=== PATIENT | female | born 1965 | race Caucasian/White ===

== ENCOUNTER → 2017-05-31 07:45 | Outpatient (CLI) | payer BC, SELFPAY ==
--- NOTE | 2017-05-31 08:10 | BI_ITS ---
MAMMOGRAPHY - BILATERAL SCREENING REASON FOR EXAM: Female, 51 years old. Routine annual screening examination. PERTINENT HISTORY: Non-contributory. TECHNIQUE: Digital bilateral breast elmira (3D mammographic acquisition) in the CC and MLO projections. 2-D mediolateral oblique (MLO) and craniocaudad (CC) views of both breasts were obtained. CAD: Full Field Digital Mammography with Computer Added Detection was performed. COMPARISON: Comparison is made with prior outside examination dated May 28, 2016. FINDINGS: Breast Composition: There are scattered areas of fibroglandular density. There are no dominant masses or suspicious calcifications. Stable bilateral benign appearing axillary lymph nodes. No other significant abnormalities are identified. There has been no significant change since the prior study. BI/SCREENING MAMM (CAD), BILAT IMPRESSION: Stable bilateral screening mammogram. Yearly follow-up mammogram recommended. (A) ASSESSMENT CATEGORY: BIRADS Category 2: Benign. A letter regarding these results will be sent to the patient by the facility within 30 days. Approximately 10% of breast cancers are not detected by mammography. A normal mammogram should not delay biopsy of a clinically suspicious abnormality. [id number] Electronically Signed: Artis Jacob MD at 9:56 EDT Tel [phone], Service support ,
== END ==
PROVIDERS: Family Provider Internal Medicine; PCP Internal Medicine; Visit Provider Nurse Practitioner Women's Health
DX: Z12.31 Encounter for screening mammogram for malignant neoplasm of breast (principal)
CPT/HCPCS: 77063; 77067

== ENCOUNTER → 2018-08-19 | Outpatient (CLI) | payer OTHER, SELFPAY ==
[2018-08-08 09:25] VITALS: BMI 34.7
--- NOTE | 2018-08-19 15:48 | BI_ITS ---
MAMMOGRAPHY - BILATERAL SCREENING 3-D TOMOSYNTHESIS REASON FOR EXAM: Female, 52 years old. Bilateral Screening 3-D tomosynthesis PERTINENT HISTORY: No significant family history. TECHNIQUE: 2-D mammograms and 3-D Tomosynthesis of the breast (s) were performed. CAD was performed. COMPARISON: May 31, 2017 FINDINGS: The breast composition is almost entirely fat. Scattered benign calcifications are seen. No dense spiculated masses or suspicious microcalcifications are identified. No architectural distortion is identified. There is no skin thickening or retraction. There has been no significant change since the prior study. BI/SCREEN MAMM (CAD) W/MICHAEL BILAT IMPRESSION: No mammographic signs of malignancy. Routine yearly mammograms recommended. ASSESSMENT CATEGORY: BIRADS Category 2: Benign. A letter regarding these results will be sent to the patient by the facility within 30 days. FOLLOW UP RECOMMENDATION: Yearly follow up mammogram recommended. (A) Approximately 10% of breast cancers are not detected by mammography. A normal mammogram should not delay biopsy of a clinically suspicious abnormality. Electronically Signed: Oseas Yeboah MD at 18:00 EDT , Service support ,
== END | disposition home or self-care (01) ==
LOC: OPBI 15:41
PROVIDERS: Family Provider Internal Medicine; PCP Internal Medicine; Referring Provider Nurse Practitioner Women's Health; Visit Provider Nurse Practitioner Women's Health
DX: Z12.31 Encounter for screening mammogram for malignant neoplasm of breast (principal)
CPT/HCPCS: 77063; 77067

== ENCOUNTER → 2019-08-21 | Outpatient (CLI) | payer OTHER, SELFPAY ==
[2018-08-08 09:25] VITALS: BMI 34.7
--- NOTE | 2019-08-21 07:40 | BI_ITS ---
MAMMOGRAPHY - BILATERAL SCREENING REASON FOR EXAM: Female, 53 years old. Routine annual screening examination. PERTINENT HISTORY: Non-contributory. TECHNIQUE: Digital bilateral breast michael (3D mammographic acquisition) in the CC and MLO projections. 2-D mediolateral oblique (MLO) and craniocaudad (CC) views of both breasts were obtained. CAD: Full Field Digital Mammography with Computer Added Detection was performed. COMPARISON: Comparison is made with prior examination dated August 19, 2018 and May 31, 2017. FINDINGS: Breast Composition: The breasts are almost entirely fatty. There are no dominant masses or suspicious calcifications. Stable small benign appearing bilateral axillary lymph nodes. No other significant abnormalities are identified. There has been no significant change since the prior study. BI/SCREEN MAMM (CAD) W/MICHAEL BILAT IMPRESSION: Stable bilateral screening mammogram. Yearly follow-up mammogram recommended. (A) ASSESSMENT CATEGORY: BIRADS Category 2: Benign. A letter regarding these results will be sent to the patient by the facility within 30 days. Approximately 10% of breast cancers are not detected by mammography. A normal mammogram should not delay biopsy of a clinically suspicious abnormality. [id number] Electronically Signed: Artis Jacob, at 10:34 EDT , Service support ,
== END | disposition home or self-care (01) ==
LOC: OPBI 07:40
PROVIDERS: PCP Internal Medicine; Referring Provider Nurse Practitioner Women's Health; Visit Provider Nurse Practitioner Women's Health
DX: Z12.31 Encounter for screening mammogram for malignant neoplasm of breast (principal)
CPT/HCPCS: 77063; 77067

== ENCOUNTER → 2020-08-27 | Outpatient (CLI) | payer OTHER, SELFPAY ==
[2020-08-27 08:34] VITALS: BMI 39.0
[2020-08-30 09:33] LABS: HPV APTIMA, High Risk Negative (Negative)
== END | disposition home or self-care (01) ==
PROVIDERS: PCP Internal Medicine; Referring Provider Nurse Practitioner Women's Health; Visit Provider Nurse Practitioner Women's Health
DX: Z12.4 Encounter for screening for malignant neoplasm of cervix (principal)
CPT/HCPCS: 87624; 88175; G0145

== ENCOUNTER → 2020-09-04 15:53 | Outpatient (CLI) | payer OTHER, SELFPAY ==
[2020-08-27 08:34] VITALS: BMI 39.0
--- NOTE | 2020-09-04 15:55 | BI_ITS ---
MAMMOGRAPHY - BILATERAL SCREENING REASON FOR EXAM: Female, 54 years old. Routine annual screening examination. PERTINENT HISTORY: Non-contributory. TECHNIQUE: Digital bilateral breast michael (3D mammographic acquisition) in the CC and MLO projections. 2-D mediolateral oblique (MLO) and craniocaudad (CC) views of both breasts were obtained. CAD: Full Field Digital Mammography with Computer Added Detection was performed. COMPARISON: Comparison is made with prior examination dated 08/21/2019 and 08/19/2018. FINDINGS: Breast Composition: The breasts are almost entirely fatty. There are no dominant masses or suspicious calcifications. Stable small benign-appearing bilateral axillary lymph nodes. Stable 4 mm nodules in the upper lateral aspect of the right breast suggestive of small intramammary lymph nodes. No other significant abnormalities are identified. There has been no significant change since the prior study. BI/SCRN MAMM (CAD)W/MICHAEL BILAT IMPRESSION: Stable bilateral screening mammogram. Yearly follow-up mammogram recommended. (A) ASSESSMENT CATEGORY: BIRADS Category 2: Benign. A letter regarding these results will be sent to the patient by the facility within 30 days. Approximately 10% of breast cancers are not detected by mammography. A normal mammogram should not delay biopsy of a clinically suspicious abnormality. [id number] Electronically Signed: Artis Jacob MD at 8:04 EDT , Service support ,
== END ==
PROVIDERS: PCP Internal Medicine; Referring Provider Nurse Practitioner Women's Health; Visit Provider Nurse Practitioner Women's Health
DX: Z12.31 Encounter for screening mammogram for malignant neoplasm of breast (principal)
CPT/HCPCS: 77063; 77067

== ENCOUNTER → 2021-07-17 | Outpatient (CLI) | payer OTHER, SELFPAY ==
[2021-07-17 15:42] LABS: Hematocrit 46.1 % (37-47); Hemoglobin 14.3 g/dL (12.0-15.0); Mean Corpuscular Volume 90.4 fL (81-99); Mean Platelet Vol. 10.4 fl (6.2-12.0); Platelet Count 345 K/mm3 (150-450); RBC Distribution Width CV 13.4 % (11.6-14.6); RBC Distribution Width SD 45.1 fl (35.1-43.9); White Blood Count 8.1 K/mm3 (4.4-11.0)
[2021-07-17 16:33] LABS: Ferritin 127 ng/mL (8-252)
== END | disposition home or self-care (01) ==
LOC: LAB 14:17
PROVIDERS: PCP Internal Medicine; Referring Provider Internal Medicine Pulmonary Disease; Visit Provider Internal Medicine Pulmonary Disease
DX: M79.606 Pain in leg, unspecified (principal); G25.81 Restless legs syndrome
CPT/HCPCS: 36415; 82728; 85027

== ENCOUNTER → 2021-09-05 | Outpatient (CLI) | payer OTHER, SELFPAY ==
--- NOTE | 2021-09-05 08:37 | BI_ITS ---
MAMMOGRAPHY - BILATERAL SCREENING REASON FOR EXAM: Female, 55 years old. Routine annual screening examination. PERTINENT HISTORY: Non-contributory. TECHNIQUE: Digital bilateral breast michael (3D mammographic acquisition) in the CC and MLO projections. 2-D mediolateral oblique (MLO) and craniocaudad (CC) views of both breasts were obtained. CAD: Full Field Digital Mammography with Computer Added Detection was performed. COMPARISON: Comparison is made with prior study dated 09/04/2020 and 08/21/2019. FINDINGS: Breast Composition: The breasts are almost entirely fatty. There are no dominant masses or suspicious calcifications. Stable small benign-appearing bilateral axillary lymph nodes. Stable 4 mm nodule in the upper lateral aspect of the right breast suggestive of small intramammary lymph node. No other significant abnormalities are identified. There has been no significant change since the prior study. BI/SCRN MAMM (CAD)W/MICHAEL BILAT IMPRESSION: Stable bilateral screening mammogram. Yearly follow-up mammogram recommended. (A) ASSESSMENT CATEGORY: BIRADS Category 2: Benign. A letter regarding these results will be sent to the patient by the facility within 30 days. Approximately 10% of breast cancers are not detected by mammography. A normal mammogram should not delay biopsy of a clinically suspicious abnormality. [id number] Electronically Signed: Artis Jacob MD at 9:33 EDT ,
== END | disposition home or self-care (01) ==
LOC: OPBI 08:36
PROVIDERS: PCP Internal Medicine; Referring Provider Nurse Practitioner Women's Health; Visit Provider Nurse Practitioner Women's Health
DX: Z12.31 Encounter for screening mammogram for malignant neoplasm of breast (principal)
CPT/HCPCS: 77063; 77067

== ENCOUNTER → 2022-09-07 | Outpatient (CLI) | payer OTHER, SELFPAY ==
--- NOTE | 2022-09-07 15:14 | BI_ITS ---
MAMMOGRAPHY - BILATERAL SCREENING 3-D TOMOSYNTHESIS REASON FOR EXAM: Female, 56 years old. Routine screening PERTINENT HISTORY: No significant family history. TECHNIQUE: 2-D mammograms and 3-D Tomosynthesis of the breast (s) were performed. CAD was performed. COMPARISON: 09/05/2021 FINDINGS: The breast composition is composed of scattered fibroglandular density. Scattered benign calcifications are seen. No dense spiculated masses or suspicious microcalcifications are identified. No architectural distortion is identified. There is no skin thickening or retraction. There has been no significant change since the prior study. BI/SCRN MAMM (CAD)W/MICHAEL BILAT IMPRESSION: No mammographic signs of malignancy. Routine yearly mammograms recommended. ASSESSMENT CATEGORY: BIRADS Category 1: Negative. A letter regarding these results will be sent to the patient by the facility within 30 days. FOLLOW UP RECOMMENDATION: Yearly follow up mammogram recommended. (A) Approximately 10% of breast cancers are not detected by mammography. A normal mammogram should not delay biopsy of a clinically suspicious abnormality. Electronically Signed: Mingo Orozco MD at 21:03 EDT ,
== END | disposition home or self-care (01) ==
LOC: OPBI 15:13
PROVIDERS: PCP Internal Medicine; Referring Provider Nurse Practitioner Women's Health; Visit Provider Nurse Practitioner Women's Health
DX: Z12.31 Encounter for screening mammogram for malignant neoplasm of breast (principal)
CPT/HCPCS: 77063; 77067

== ENCOUNTER 2023-05-22 04:33 | Emergency (ER) | payer OTHER, SELFPAY ==
[2023-05-22 04:35] VITALS: BP 153/75; PULSE 105; RESP 19; TEMP 36.6; O2SAT 98; BMI 40.3
--- NOTE | 2023-05-22 04:50 | CT_ITS ---
EXAM: CT Abdomen And Pelvis W/O Contrast Injection HISTORY: left flank pain TECHNIQUE: Routine protocol CT abdomen and pelvis. IV Contrast: None.. Oral contrast: None. RADIATION DOSAGE (If Supplied By Facility): CTDIvol = ( 15.07 ) mGy, DLP = ( 696.70 ) mGycm Individualized dose optimization techniques were used for this CT. COMPARISON: None. LIMITATIONS: None. FINDINGS: LOWER CHEST: Minimal dependent atelectasis in the lung bases. Small hiatal hernia. LIVER: Grossly unremarkable. GALLBLADDER AND BILIARY TREE: Grossly unremarkable. PANCREAS: Grossly unremarkable. SPLEEN: Grossly unremarkable. ADRENAL GLANDS: Grossly unremarkable. KIDNEYS AND URETERS: There is a 4 mm calculus in the proximal left ureter distal to the ureteropelvic junction. The proximal left ureter is dilated with mild left hydronephrosis and perinephric stranding. No other calculi demonstrated. No hydronephrosis on the right. PERITONEUM: No free air. No free fluid. BOWEL: No bowel obstruction. APPENDIX: Not identified. Likely surgically absent with surgical clips in the region. VESSELS: Abdominal aorta is normal caliber. REPRODUCTIVE ORGANS: Grossly unremarkable URINARY BLADDER: Grossly unremarkable. ABDOMINAL WALL: Unremarkable. BONES: No acute abnormalities. CT/Abdomen/Pelvis without Cont IMPRESSION: Proximal left ureteral calculus with mild left hydroureteronephrosis. Electronically Signed: Ana Olson MD at 7:21 EDT ,
[2023-05-22] MEDS: 0.9% Normal Saline (1000mL) 1,000 ML 999 ML IV (05:36)
[2023-05-22] MEDS: Ketorolac 30 MG/ML Syringe IV (05:37)
[2023-05-22 05:48] LABS: Absolute Lymphocyte Count 0.87 X10^3/uL (0.83-4.51); Absolute Neutrophil Count 10.4 X10^3/uL (2.0-7.7); Basophil# 0.04 X10^3/uL; Basophil% 0.3 % (0-1); Hematocrit 42.4 % (37-47); Hemoglobin 13.3 g/dL (12.0-15.0); Lymphocyte # 0.87 X10^3/ul (0.83-4.51); Lymphocyte % 7.4 % (19-41); Mean Corp Hgb Conc 31.4 g/dL (32-36); Mean Corpuscular Hgb 27.9 pg (27.0-32.0); Mean Corpuscular Volume 89.1 fL (81-99); Monocyte# 0.36 X10^3/uL; Monocyte% 3.1 % (0-10); NRBC Flagged by Analyzer 0 % (0-5); Neutrophil # 10.42 X10^3/uL (2.7-7.7); Neutrophil % 88.8 % (47-70); Platelet Count 316 K/mm3 (150-450); RBC Distribution Width CV 13.4 % (11.6-14.6); Red Blood Count 4.76 M/mm3 (4.2-5.4); White Blood Count 11.7 K/mm3 (4.4-11.0)
[2023-05-22 06:05] LABS: Anion Gap 7 (5-15); BUN 19 mg/dL (7-18); BUN/Creat Ratio 17.8 RATIO (10-20); Calcium,Total 9.2 mg/dL (8.5-10.1); Chloride 108 mmol/L (98-107); Creatinine, Serum 1.07 mg/dL (0.55-1.02); EST Glomerular Filtration Rate 56 mL/min (>60); Est Glom Filt Rate - Afr Amer 68 mL/min (>60); Estimated Creatinine Clearance 54.23 ml/min; Glucose 136 mg/dL (74-106); Potassium 3.6 mmol/L (3.5-5.1); Sodium Level 141 mmol/L (136-145)
[2023-05-22 06:30] LABS: Bacteria 0 SEEN /hpf (None Seen); Mucous, Urine 0 SEEN /hpf (<or=2+); White Blood Cells 0 SEEN /hpf (0-5)
[2023-05-22 06:34] VITALS: BP 144/85; PULSE 88; RESP 18; O2SAT 97
[2023-05-22 06:41] LABS: Color, Urine Yellow (Yellow); Glucose, Dipstick Normal (Normal); Ketone-Dipstick Negative (Negative); Leukocyte Esterase-Dipstick Negative /ul (Negative); Nitrite-Dipstick Negative (Negative); Occult Blood-Urine 50 /ul (Negative); Protein-Dipstick Negative (Negative); Urine Bilirubin Dipstick Negative (Negative); Urine Clarity Clear (Clear); Urine Urobilinogen Normal (Normal)
[2023-05-22 06:53] LABS: Red Blood Cells-Urine 10-25 SEEN /hpf (0-5); Squamous Epithelial Cells - UA 10-25 SEEN /hpf (5-10)
--- NOTE | 2023-05-22 07:10 | EX.ED.DYSGE1 ---
HPI History of Present Illness Chief Complaint: Flank Pain Informant: patient and spouse/S.O. Narrative Narrative: Patient is a 57-year-old female with past medical history of hypertension restless leg syndrome and sleep apnea. She states she was sleeping when she woke with left-sided pain. She states the pain is located along the left lateral abdomen and sharp in nature. She denies any recent trauma or excessive activity prior to the pain beginning. She states her urine is dark but also reports that is because she does not drink enough water. She states that she does have a remote history of kidney stone and this feels similar nature and secondary to concern for that she presents for evaluation [facility] Medical History Hypertension Restless leg syndrome Sleep apnea Home Medications carbidopa 25 mg-levodopa 100 mg-entacapone 200 mg tablet 1 tab PO QHS 06/04/15 [History Last Taken 06/05/15 \] trazodone 50 mg tablet 25 mg PO QHS 06/04/15 [History Last Taken 06/05/15] estradiol 0.01% (0.1 mg/gram) vaginal cream (Estrace) 1 g vaginal 2XW #42.5 grams 08/21/19 [Rx Last Taken Unknown] ketorolac 10 mg tablet 10 mg PO 4X/DAY PRN PRN pain 5 days #20 tabs 05/22/23 [Rx Last Taken Unknown] tamsulosin 0.4 mg capsule (Flomax) 0.4 mg PO DAILY #14 caps 05/22/23 [Rx Last Taken Unknown] Allergy/AdvReac Type Severity Reaction Status Date / Time acrivastine [From Semprex-D] Allergy Other Verified 09/07/22 14:48 cefuroxime axetil Allergy Rash Verified 09/07/22 14:48 [From Ceftin] diphenhydramine HCl Allergy Rash Verified 09/07/22 14:48 [From Benadryl] erythromycin base Allergy Rash Verified 09/07/22 14:48 insulin lispro [From Humalog] Allergy Unknown Verified 09/07/22 14:48 naproxen Allergy Unknown Verified 09/07/22 14:48 nitrofurantoin Allergy Rash Verified 09/07/22 14:48 [From Macrobid] nortriptyline Allergy Unknown Verified 09/07/22 14:48 Penicillins Allergy Rash Verified 09/07/22 14:48 pseudoephedrine HCl Allergy Other Verified 09/07/22 14:48 [From Semprex-D] Family History Mother Ovarian cancer Grandmother Heart disease [place] at 82 Father Heart disease Surgical History H/O hand surgery History of appendectomy History of lithotripsy Social History Smoking Status: Never smoker alcohol intake: current details: occasionally substance use type: does not use caffeine: Yes what type of physical activity do you participate in: walking frequency: 3-4 times per week seatbelt use: always do you feel safe at home: Yes additional social history: - [employer] Patient works at [employer] ROS ED Constitutional Constitutional ED: Denies chills or fever(s) ENT ENT ED: Denies sore throat Cardiovascular Cardiovascular: Denies chest pain Respiratory/Chest Respiratory/Chest: Denies cough or dyspnea Gastrointestinal Gastrointestinal: Reports abdominal pain and nausea; Denies diarrhea or vomiting Genitourinary Genitourinary ED: Denies dysuria or urinary frequency Musculoskeletal Musculoskeletal: Reports back pain; Denies myalgias Integumentary Denies rash Neurologic Neurologic: Denies headache(s) Hematologic/Lymphatic Hematologic/Lymphatic: Denies easy bleeding or easy bruising EXAM Physical Exam Const Vital Signs: 05/22/23 04:35 05/22/23 06:34 Temperature 98 F Temperature Source Oral Pulse Rate 105 H 88 Respiratory Rate 19 H 18 Blood Pressure 153/75 H 144/85 H Blood Pressure Mean 101 104 Pulse Ox 98 97 Oxygen Delivery Method Room Air Room Air Positive well nourished, well developed and obese General Appearance ED: well developed; Negative for pallor Nutritional Appearance: obese HEENT HEENT Narrative: Normocephalic atraumatic Eyes PERRL and EOMs intact bilaterally General Eye ED: Negative for scleral icterus Neck supple Neck Narrative: No nuchal rigidity or meningeal signs noted Resp normal respiratory effort and clear to auscultation bilaterally Cardio regular rate and regular rhythm Rate: other Other Details: Radial and carotid pulses are equal and symmetric GI non-distended GI Narrative: Abdomen is obese soft and nondistended with normal active bowel sounds. There is pain with palpation in the left lateral/upper quadrant. No voluntary guarding or rigidity. No pulsatile mass or fluid wave Auscultation: normoactive bowel sounds Palpation: soft Back/Spine Back/Spine Narrative: Positive left CVA pain noted Extremity normal to inspection Neuro oriented x3, CN's II-XII intact bilaterally and no sensory deficits noted Sensorium / Orientation: alert Motor Exam: strength 5/5 throughout Psych mental status grossly normal Skin no rashes or lesions noted Skin Narrative: No overlying soft tissue changes to suggest trauma or infection General Skin Exam: Negative for jaundice or pallor MDM MDM MDM Narrative Medical decision making narrative: Patient presented to the ER hypertensive otherwise with stable vitals. She reported sudden onset of sharp pain along the left lateral abdomen with remote history of kidney stone. Differential diagnosis is for kidney stone versus UTI versus pyelonephritis versus colitis. Basic labs were obtained which shows blood within the urine concerning for stone without secondary changes to suggest infection. No significant electrolyte abnormality or signs of [place]. CT scan did confirm a 4 mm stone in the mid left ureter with mild hydronephrosis. She was treated with IV fluids and Toradol and had resolution of her pain. At this time as she does not have findings concerning for urosepsis or acute kidney injury and her pain is controlled there is no need for admission and she is otherwise safe for discharge and outpatient follow-up with urology History & Record Review Discussion w/independent historian: Patient and Significant other Lab Data Attestation: I reviewed the patient's lab results. Labs: Laboratory Results - last 24 hr 05/22/23 05/22/23 05:30 06:17 WBC 11.7 H RBC 4.76 Hgb 13.3 Hct 42.4 MCV 89.1 MCH 27.9 MCHC 31.4 L RDW Std Deviation 44.0 H RDW Coeff of Heather 13.4 Plt Count 316 MPV 10.0 Immature Gran % (Auto) 0.400 Neut % (Auto) 88.8 H Lymph % (Auto) 7.4 L [place] % (Auto) 3.1 Eos % (Auto) 0.0 Baso % (Auto) 0.3 Absolute Neuts (auto) 10.4 H Absolute Lymphs (auto) 0.87 Nucleated RBC % 0 Sodium 141 Potassium 3.6 Chloride 108 H Carbon Dioxide 26.0 Anion Gap 7 BUN 19 H Creatinine 1.07 H Estim Creat Clear Calc 54.23 Est GFR (MDRD) Af Amer 68 Est GFR (MDRD) Non-Af 56 L BUN/Creatinine Ratio 17.8 Glucose 136 H Calcium 9.2 Urine Color Yellow Urine Clarity Clear Urine pH 7.0 Ur Specific Fults 1.010 Urine Protein Negative Urine Glucose (UA) Normal Urine Ketones Negative Urine Occult Blood 50 H Urine Nitrite Negative Urine Bilirubin Negative Urine Urobilinogen Normal Ur Leukocyte Esterase Negative Urine RBC 10-25 SEEN Urine WBC 0 SEEN Ur Squamous Epith Cells 10-25 SEEN Urine Bacteria 0 SEEN Urine Mucus 0 SEEN Radiography Diagnostic Testing: Clinical Impression(s) from Imaging Studies Abdomen/Pelvis CT 05/22/23 04:50 IMPRESSION: Proximal left ureteral calculus with mild left hydroureteronephrosis. Electronically Signed: Ana Olson MD at 7:21 EDT Reading Location ID and State: [address] [place] [address] Tel , Service support , Discharge Plan Triage Chief Complaint: Flank Pain Other Complaint: Abd Pain ED Provider: Smith Tripp Dx/Rx/DC Orders Clinical Impression: Renal colic, Kidney stone, Sleep apnea, Hypertension Instructions: ED Kidney Stone with Pain Prescriptions: New ketorolac 10 mg tablet 10 mg PO 4X/DAY PRN PRN (Reason: pain) 5 Days Qty: 20 0RF tamsulosin [Flomax] 0.4 mg capsule 0.4 mg PO DAILY Qty: 14 0RF No Action estradiol [Estrace] 0.01 % (0.1 mg/gram) cream 1 g VAGINAL 2XW Qty: 42.5 2RF trazodone 50 MG tablet 25 mg PO QHS Patient Comments: sleep [id number] 1 EACH tablet 1 tab PO QHS Primary Care Provider: Maria E Awan Referrals: Ann-Marie Huffman MD [Med Staff - Active Staff] - Maria E Awan MD [Primary Care Provider] - Activity Restrictions/Additional Instructions: Please follow-up with urology for repeat evaluation. Keep yourself well-hydrated and stay active. If you develop a fever over 100.4 or your pain is not controlled with the prescribed medication please return for repeat evaluation. Disposition Disposition: Home, Self Care
[2023-05-22 07:44] VITALS: BP 144/81; PULSE 92; RESP 16; TEMP 36.6; O2SAT 100
== END 2023-05-22 07:46 | disposition home or self-care (01) ==
PROVIDERS: Emergency Provider Emergency Medicine; PCP Internal Medicine; Visit Provider Emergency Medicine
DX: N13.2 Hydronephrosis with renal and ureteral calculous obstruction (principal); N23 Unspecified renal colic; I10 Essential (primary) hypertension; G47.30 Sleep apnea, unspecified; G25.81 Restless legs syndrome; Z87.442 Personal history of urinary calculi; E66.9 Obesity, unspecified
CPT/HCPCS: 74176; 80048; 81001; 85025; 96361; 96374; 99284; J7030; A4216

== ENCOUNTER → 2023-06-30 | Outpatient (CLI) | payer OTHER, SELFPAY ==
--- NOTE | 2023-06-30 17:47 | CT_ITS ---
EXAM: CT ABDOMEN AND PELVIS WITHOUT INTRAVENOUS CONTRAST CLINICAL INDICATION: FLANK PAIN TECHNIQUE: Helically acquired images were obtained of the abdomen and pelvis without intravenous contrast. This CT exam was performed using one or more of the following dose reduction techniques: automated exposure control, adjustment of the mA and/or kV according to patient size, and/or use of iterative reconstruction technique. COMPARISON: 05/22/2023 FINDINGS: LOWER THORAX: No significant abnormality. Lung bases are clear. No cardiomegaly. No significant pericardial effusion. ABDOMEN: LIVER: No significant abnormality. Homogeneous. GALLBLADDER AND BILE DUCTS: No significant abnormality. No calcified gallstones. No gallbladder distention or wall edema. No intra- or extrahepatic biliary ductal dilation. PANCREAS: No significant abnormality. No focal cystic mass. SPLEEN: No significant abnormality. Normal size without focal cystic or solid mass. ADRENALS: No significant abnormality. No nodules. KIDNEYS AND URETERS: Punctate left interpolar region calyceal stone measuring less than 1 mm. The previously demonstrated proximal left ureteral stone has passed and there is no left-sided hydronephrosis. Normal renal size and position. No right-sided urolithiasis or hydronephrosis is present. STOMACH AND BOWEL: No significant abnormality. No stomach or bowel distention. No focal inflammatory change. PELVIS: APPENDIX: Findings consistent with prior appendectomy. BLADDER: No significant abnormality. REPRODUCTIVE: Normal as visualized. No mass. ABDOMEN and PELVIS: INTRAPERITONEAL SPACE: No significant abnormality. No ascites or other fluid collection. No free air. BONES/JOINTS: Degenerative changes in the spine. No suspicious lytic or blastic abnormality. SOFT TISSUES: No significant abnormality. No discrete abdominal or pelvic wall hernia. VASCULATURE: No significant abnormality. Abdominal aorta is non-dilated. LYMPH NODES: Nonspecific soft tissue nodule in the left suprarenal region distinct from the adrenal gland is unchanged measuring approximately 1.3 cm. This is possibly a small lymph node. CT/Abdomen/Pelvis without Cont IMPRESSION: 1. Nonspecific soft tissue nodule in the left suprarenal region distinct from the adrenal gland is unchanged measuring approximately 1.3 cm. This is possibly a small lymph node. 2. Punctate left interpolar region calyceal stone measuring less than 1 mm. The previously demonstrated proximal left ureteral stone has passed and there is no left-sided hydronephrosis. Electronically Signed: Gregory Greco DO at 23:56 EDT ,
== END | disposition home or self-care (01) ==
LOC: CT 17:45
PROVIDERS: PCP Internal Medicine; Referring Provider Urology; Visit Provider Urology
DX: R10.9 Unspecified abdominal pain (principal); N20.1 Calculus of ureter
CPT/HCPCS: 74176

== ENCOUNTER → 2023-07-07 | Outpatient (CLI) | payer OTHER, SELFPAY ==
--- NOTE | 2023-07-07 11:01 | RAD_ITS ---
INDICATION: Shortness of breath/COUGH EXAMINATION/TECHNIQUE: X-RAY - XR Chest 2 Views COMPARISON: No relevant prior comparison study available FINDINGS: LINES/DEVICES: None. LUNGS: No consolidation, edema or effusion. No pneumothorax. MEDIASTINUM AND CARDIOVASCULAR STRUCTURES: Cardiac silhouette not enlarged. Central airways and mediastinal contour are unremarkable. BONES AND SOFT TISSUES: Unremarkable. RAD/Chest PA and Lateral IMPRESSION: No radiographic evidence of acute cardiopulmonary disease. Electronically Signed: Melia Quintana MD at 11:13 EDT ,
== END | disposition home or self-care (01) ==
LOC: MTLAB 11:00
PROVIDERS: PCP Internal Medicine; Referring Provider Internal Medicine Pulmonary Disease; Visit Provider Internal Medicine Pulmonary Disease
DX: R06.02 Shortness of breath (principal); R05.9 Cough, unspecified
CPT/HCPCS: 71046

== ENCOUNTER → 2023-09-15 | Outpatient (CLI) | payer OTHER, SELFPAY ==
--- NOTE | 2023-09-15 08:25 | BI_ITS ---
MAMMOGRAPHY - BILATERAL SCREENING REASON FOR EXAM: Female, 57 years old. Routine annual screening examination. PERTINENT HISTORY: Non-contributory. TECHNIQUE: Digital bilateral breast michael (3D mammographic acquisition) in the CC and MLO projections. 2-D mediolateral oblique (MLO) and craniocaudad (CC) views of both breasts were obtained. CAD: Full Field Digital Mammography with Computer Added Detection was performed. COMPARISON: Comparison is made with prior study dated September 07, 2022 and September 05, 2021. FINDINGS: Breast Composition: There are scattered areas of fibroglandular density. There are no dominant masses or suspicious calcifications. Stable small benign-appearing bilateral axillary lymph nodes. No other significant abnormalities are identified. There has been no significant change since the prior study. BI/SCRN MAMM (CAD)W/MICHAEL BILAT IMPRESSION: Stable bilateral screening mammogram. Yearly follow-up mammogram recommended. (A) ASSESSMENT CATEGORY: BIRADS Category 2: Benign. A letter regarding these results will be sent to the patient by the facility within 30 days. Approximately 10% of breast cancers are not detected by mammography. A normal mammogram should not delay biopsy of a clinically suspicious abnormality. [id number] Electronically Signed: Artis Jacob MD at 9:26 EDT ,
== END | disposition home or self-care (01) ==
LOC: OPBI 08:25
PROVIDERS: PCP Internal Medicine; Referring Provider Nurse Practitioner Women's Health; Visit Provider Nurse Practitioner Women's Health
DX: Z12.31 Encounter for screening mammogram for malignant neoplasm of breast (principal)
CPT/HCPCS: 77063; 77067

== ENCOUNTER → 2023-10-19 | Outpatient (CLI) | payer OTHER, SELFPAY ==
[2023-10-19 12:46] LABS: Erythrocyte Sedimentation Rate 7 mm/hr (0-30)
[2023-10-19 12:54] LABS: Absolute Lymphocyte Count 1.93 X10^3/uL (0.83-4.51); Absolute Neutrophil Count 4.1 X10^3/uL (2.0-7.7); Basophil# 0.06 X10^3/uL; Basophil% 0.9 % (0-1); Eosinophils% 2.8 % (0-5); Hematocrit 44.6 % (37-47); Hemoglobin 13.9 g/dL (12.0-15.0); Lymphocyte # 1.93 X10^3/ul (0.83-4.51); Lymphocyte % 27.4 % (19-41); Mean Corp Hgb Conc 31.2 g/dL (32-36); Mean Corpuscular Hgb 28.1 pg (27.0-32.0); Mean Corpuscular Volume 90.3 fL (81-99); Mean Platelet Vol. 10.5 fl (6.2-12.0); Monocyte# 0.73 X10^3/uL; Monocyte% 10.4 % (0-10); NRBC Flagged by Analyzer 0 % (0-5); Neutrophil # 4.11 X10^3/uL (2.7-7.7); Neutrophil % 58.2 % (47-70); Platelet Count 340 K/mm3 (150-450); RBC Distribution Width CV 13.9 % (11.6-14.6); RBC Distribution Width SD 45.9 fl (35.1-43.9); Red Blood Count 4.94 M/mm3 (4.2-5.4); White Blood Count 7.1 K/mm3 (4.4-11.0)
[2023-10-20 14:09] LABS: Angiotensin Convert Enzyme 53 U/L (14-82)
== END | disposition home or self-care (01) ==
LOC: MTLAB 10:24
PROVIDERS: PCP Internal Medicine; Referring Provider Internal Medicine Pulmonary Disease; Visit Provider Internal Medicine Pulmonary Disease
DX: J45.40 Moderate persistent asthma, uncomplicated (principal)
CPT/HCPCS: 36415; 82164; 85025; 85652

== ENCOUNTER → 2024-07-19 | Outpatient (CLI) | payer OTHER, SELFPAY ==
--- NOTE | 2024-07-19 10:15 | RAD_ITS ---
PROCEDURE: ABDOMEN SINGLE VIEW 07/19/2024 REASON FOR EXAM: KUB- KIDNEY STONE TECHNIQUE: Single view abdomen. 2 images to include the entire abdomen and pelvis FINDINGS: No abdominal calcification identified concerning for a renal stone. Left pelvic phlebolith incidental. Visualized lung bases appear unremarkable. No gaseous distention of bowel or evidence of mass effect. RAD/Abdomen Single View IMPRESSION: No abdominal calcification identified concerning for a renal stone. Reading Location: [id number]
== END | disposition home or self-care (01) ==
LOC: MTRAD 10:13
PROVIDERS: PCP Internal Medicine; Referring Provider Urology; Visit Provider Urology
DX: N20.0 Calculus of kidney (principal)
CPT/HCPCS: 74018

== ENCOUNTER → 2024-09-19 | Outpatient (CLI) | payer OTHER, SELFPAY ==
--- NOTE | 2024-09-19 10:15 | BI_ITS ---
EXAM: SCRN MAMM (CAD)W/MICHAEL BILAT DATE: 09/19/2024 CLINICAL HISTORY: F, Age 58 y/o , SCREEN FOR BREAST CANCER No family history. TECHNIQUE: SCRN MAMM (CAD)W/MICHAEL BILAT COMPARISON: Prior exam(s) dated September 15, 2023. FINDINGS: TISSUE DENSITY: The breasts are almost entirely fatty. Bilateral Breast Mammographic Findings: No significant masses, calcifications or other abnormalities are identified. Stable small bilateral axillary lymph nodes. No suspicious masses, areas of developing architectural distortion, or suspicious calcifications. There has been no significant interval change. BI/SCRN MAMM (CAD)W/MICHAEL BILAT IMPRESSION: Stable examination. OVERALL FINAL ASSESSMENT BI-RADS 2: BENIGN RECOMMENDATION: Routine annual follow-up in 1 Year A letter with findings and recommendations will be mailed to the patient. Reading Location: [id number]
--- OUTSIDE RECORDS SUMMARY | 2024-09-19 21:29 | XMS RPT_ITS | CCD ---
Author Organization [facility]iniSym[facility] Care Team Providers Care Paper Cap Machine Operator Name Role Phone Peyton ECONOMIC RESEARCH ASSISTANT, Yumiko Bishop Unavailable Agnieszka Bruce MD Primary Care Provider Dr. Agnieszka Bruce Primary Care Provider Dr. Agnieszka Bruce Referring Provider Peyton ECONOMIC RESEARCH ASSISTANT, ECONOMIC RESEARCH ASSISTANT-C Yumiko Attending Provider Agnieszka Bruce MD Primary Care Provider Dr. Agnieszka Bruce Primary Care Provider Dr. Agnieszka Bruce Referring Provider Peyton ECONOMIC RESEARCH ASSISTANT, ECONOMIC RESEARCH ASSISTANT-C Yumiko Attending Provider [phone] Agnieszka Bruce MD Primary Care Provider Oakes MACHINIST SET UP.INSPECTOR MACHINE PARTS, Hamilton Unavailable Daron MACHINIST SET UP.AGILE COACH, Macey Unavailable Daron MACHINIST SET UP.AGILE COACH, Macey Unavailable JANIS AGNIESZKA D Primary Care Unavailable TALAMPNARCISO, AGNIESZKA D Referring Unavailable TALAMPNARCISO, AGNIESZKA D Primary Care Unavailable DARON MACEY Attending Unavailable NATHANAMPNARCISO, AGNIESZKA D Primary Care Unavailable TALAMPAS, AGNIESZKA D Primary Care Unavailable OAKES, HAMILTON Referring Unavailable TALAMPNARCISO, AGNIESZKA D Primary Care Unavailable NATHANAMPNARCISO, AGNIESZKA D Attending Unavailable JANIS, AGNIESZKA D Primary Care Unavailable Dr. Agnieszka Bruce MD Primary Care Provider Armida QUINTERO, Dr. Jacobsen Attending Provider Armida QUINTERO, Dr. Jacobsen Referring Provider Ann-Marie Huffman Attending Unavailable Ann-Marie Huffman Referring Unavailable Talampas, Agnieszka D Primary Care Unavailable Sibilia, Sage V Attending Unavailable Sibilia, Sage V Referring Unavailable Talampas, Agnieszka D Primary Care Unavailable PeytonYumiko Attending Unavailable Peyton, Yumiko Referring Unavailable Talampas, Agnieszka D Primary Care Unavailable Talampas, Agnieszka D Referring Unavailable Flores Wright Attending Unavailable Talampas, Agnieszka D Primary Care Unavailable Talampas, Agnieszka D Referring Unavailable PeytonYumiko Attending Unavailable Talampas, Agnieszka D Primary Care Unavailable Armida QUINTERO, Dr. Jacobsen Attending Provider Armida QUINTERO, Dr. Jacobsen Referring Provider Janis QUINTERO, Dr. Agnieszka Calvert Referring Provider Kyle ECONOMIC RESEARCH ASSISTANT-CFlores Attending Provider Allergies Allergy Classification Reported Allergen(s) Allergy Type Date of Onset Reaction(s) Facility (19 sources) acrivastine / Pseudoephedrine; Translations: [ACRIVASTINE-PSEUDO EPHEDRINE] Drug Allergy 12-05-19 05 [facility] Work Phone: [phone] (20 sources) Amoxicillin; Translations: [AMOXICILLIN] Drug Allergy 12-05-[address] [place] [address] Work Phone: [phone] (20 sources) Cefuroxime; Translations: [CEFUROXIME AXETIL] Drug Allergy 12-05-19 05 [facility] Work Phone: (20 sources) diphenhydrAMINE; Translations: [DIPHENHYDRAMINE HCL] Drug Allergy 12-05-19 05 [facility] Work Phone: (20 sources) Erythromycin; Translations: [ERYTHROMYCIN] Drug Allergy 12-05-19 05 [facility] Work Phone: (20 sources) Naproxen; Translations: [NAPROXEN SODIUM] Drug Allergy 12-05-19 05 [facility] Work Phone: [phone] (20 sources) NITROFURANTOIN, MACROCRYSTALS / Nitrofurantoin, Monohydrate; Translations: [NITROFURANTOIN MONOHYD/M-CRYST] Drug Allergy 12-05-19 05 [facility] Work Phone: [phone] (20 sources) Nortriptyline; Translations: [NORTRIPTYLINE] Drug Allergy 12-05-19 05 Unknown [facility] Work Phone: [phone] (5 sources) Penicillins; Translations: [PENICILLINS] Propensity to adverse reactions 08-19-19 08 Rash [facility] Work Phone: [phone] (18 sources) humabid [Other] Propensity to adverse reactions 12-05-19 05 [facility] Work Phone: [phone] (6 sources) acrivastine Drug Allergy 08-28-19 21 Other [facility] (6 sources) Insulin Lispro Drug Allergy 08-28-19 21 Unknown [facility] (6 sources) Naproxen Drug Allergy 08-28-19 21 Unknown [facility] (6 sources) Nitrofurantoin Drug Allergy 08-28-19 21 Rash [facility] (7 sources) Pseudoephedrine; Translations: [pseudoephedrine HCl] Drug Allergy 08-28-19 21 Other [facility] (20 sources) Lisinopril; Translations: [LISINOPRIL] Drug Allergy 09-10-19 22 Other: See Comments [facility] Work Phone: [phone] (20 sources) Penicillins Propensity to adverse reactions 08-19-19 08 Rash [facility] Work Phone: [phone] (4 sources) Penicillins Allergy to substance 09-08-19 23 Rash [facility] (9 sources) acrivastine / Pseudoephedrine Drug Allergy 12-05-19 05 [facility] Work Phone: [phone] (9 sources) guaiFENesin; Translations: [GUAIFENESIN] Drug Allergy 12-05-19 05 Intolerance [facility] (1 source) Penicillins Propensity to adverse reactions 08-19-19 08 Rash [facility] (1 source) acrivastine Drug Allergy 03-22-19 25 [facility] (1 source) Cefuroxime Drug Allergy 03-22-19 25 [facility] (1 source) diphenhydrAMINE Drug Allergy 03-22-19 [facility] (1 source) Erythromycin Drug Allergy 03-22-19 [facility] (1 source) Insulin Lispro Drug Allergy 03-22-19 [facility] (1 source) Naproxen Drug Allergy 03-22-19 [facility] (1 source) Nitrofurantoin Drug Allergy 03-22-19 [facility] (1 source) Nortriptyline Drug Allergy 03-22-19 [facility] (1 source) Penicillins Drug allergy (disorder) 03-22-19 [facility] Medications Current Medications Medication Drug Class(es) Dates Sig (Normalized) Sig (Original) [id number] actuat albuterol 0.09 mg/actuat metered dose inhaler (20 sources) beta2-Adrenergic Agonist Start: 03-22-2024 Albuterol Sulfate 90 mcg/actuation HFA aerosol inhaler Active 1 NMA INHALATION EVERY 4-6 HOURS as needed March 22, 2024 1:00am Start: 12-08-2023 take 2 puff(s) by in halation every six hours as needed albuterol HFA (PROAIR HFA) 90 mcg/actuation inhaler Indications: Mild intermittent asthma without complication (HCC) Inhale 2 Puffs as instructed every 6 hours as needed. 1 Each 12/08/2023 Active Start: 12-01-2022 End: 12-08-2023 take 2 puff(s) by inhalation every six hours as needed albuterol HFA (PROAIR HFA) 90 mcg/actuation inhaler Inhale 2 Puffs as instructed every 6 hours as needed. 8.5 g 06/15/2023 12/08/2023 Discontinued Start: 01-28-2022 End: 04-27-2022 take 2 puff(s) by inhalation every six hours as needed for wheezing albuterol HFA (PROVENTIL HFA, VENTOLIN HFA) 90 mcg/actuation inhaler Indications: Bronchitis with bronchospasm Inhale 2 Puffs as instructed every 6 hours as needed for wheezing/shortness of breath. 1 Each 0 01/28/2022 04/27/2022 Discontinued Comment on above: Inhale 2 Puffs as in structed every 6 hours as needed for wheezing/shortness of breath. Inhale 2 Puffs as in structed every 6 hours as needed. azithromycin 500 mg oral tablet (4 sources) Macrolide Antimicrobial Start: End: take 1 tablet by mouth once daily azithromycin (ZITHROMAX) 500 mg tablet Indications: Strep throat , Sinobronchitis Take 1 tablet by mouth once daily for 5 days. 5 tablet 02/27/2024 03/03/2024 Active Start: 05-24-2022 End: 05-29-2022 take 2 tablets by mouth once daily, then take 1 tablet by mouth once daily azithromycin (ZITHROMAX) 250 mg tablet Take 2 tablets by mouth once daily for 1 day, THEN 1 tablet once daily for 4 days. 6 tablet 0 05/24/2022 05/29/2022 Active Start: 01-28-2022 End: 02-02-2022 azithromycin (ZITHROMAX Z-PA K) 250 mg tablet Indications: Bronchitis with bronchospasm Take 2 tablets day one, then, 1 tablet daily until gone. 6 tablet 0 01/28/2022 02/02/2022 Active Comment on above: Take 2 tablets day o ne, then, 1 tablet daily until gone. Take 2 tablets by mo uth once daily for 1 day, THEN 1 tablet once daily for 4 days. budesonide 0.032 mg/actuat metered dose nasal spray (1 source) Corticosteroid Start: End: take 2 spray(s) by mouth once daily budesonide (RHINOCORT AQ) 32 mcg/actuation nasal spray Use 2 Sprays in each nostril once daily. Rinse mouth after use. 8.43 mL 12/20/2023 01/19/2024 Active Carbidopa / Levodopa (20 sources) Aromatic Amino Acid Decarboxylation Inhibitor, Aromatic Amino Acid Start: Carbidopa-Levodopa 10-100 mg tablet Active 1 {tbl} PO daily March 22, 2024 1:00am Start: 03-19-2020 End: 09-27-2023 take 1 tablet by mouth once daily carbidopa-levodopa (SINEMET 10-100) 10-100 mg per tablet Indications: RLS (restless legs syndrome) Take 1 tablet by mouth once daily. 90 tablet 3 09/27/2023 Active Comment on above: Take 1 tablet by vicki th daily at bedtime. Take 1 tablet by vicki th once daily. doxycycline hyclate 100 mg oral tablet (1 source) Tetracycline-class Drug Start: 3 End: 3 take 1 tablet by mouth twice daily doxycycline (VIBRA-TABS) 100 mg tablet Take 1 tablet by mouth two times a day for 7 days. 14 tablet 0 12/01/2022 12/08/2022 Active Comment on above: Take 1 tablet by vicki th two times a day for 7 days. 60 actuat fluticasone propionate 0.232 mg/actuat / salmeterol xinafoate 0.014 mg/actuat dry powder inhaler (5 sources) Corticosteroid, beta2-Adrenergic Agonist Start: 5 End: 5 Fluticasone Propion-Salmeterol 232-14 mcg/actuation aerosol powdr breath activated Active 1 NMA INHALATION TWICE A DAY 1 September 08, 2024 12:11pm generic with GoodRx coupon ibuprofen 200 mg oral tablet (20 sources) Nonsteroidal Anti-inflammatory Drug Start: 9 take 400-600 mg by mouth every twelve hours as needed ibuprofen (MOTRIN) 200 mg tablet Take 2-3 tablets by mouth twice daily as needed for Pain. 09/20/2018 Active Comment on above: Take 2-3 tablets by mouth twice daily as needed for Pain. losartan potassium 25 mg oral tablet (20 sources) Angiotensin 2 Receptor Brenda Start: 5 take 1 tablet by mouth once daily Losartan 25 mg tablet Active 25 mg PO daily March 22, 2024 1:00am Start: 03-16-2022 End: 09-27-2023 take 1 tablet by mouth once daily losartan (COZAAR) 25 mg tablet Indications: Essential hypertension Take 1 tablet by mouth once daily. 90 tablet 3 09/27/2023 Active Comment on above: Take 1 tablet by vicki th once daily. TAKE 1 TABLET BY VICKI TH EVERY DAY MULTIVITAMIN TAB (20 sources) Start: 006 MULTIVITAMIN TAB Take by mouth. 0 07/21/2005 Active Comment on above: Take by mouth. nystatin 100 unt/mg / triamcinolone acetonide 0.001 mg/mg topical ointment (1 source) Polyene Antifungal, Corticosteroid Start: End: nystatin-triamcinolon e (MYCOLOG) ointment Indications: Perineal itching, female Apply 1 application to affected area two times a day for 14 days. Apply sparingly to perineum twice daily for irritation/infection. 15 g 0 05/24/2023 06/07/2023 Active Comment on above: Apply 1 application to affected area two times a day for 14 days. Apply sparingly to perineum twice daily for irritation/infection. predniSONE 20 mg oral tablet (1 source) Start: End: take 2 tablets by mouth once daily predniSONE (DELTASONE) 20 mg tablet Indications: Sinobronchitis Take 2 tablets by mouth once daily for 4 days. 8 tablet 02/27/2024 03/02/2024 Active tamsulosin hydrochloride 0.4 mg oral capsule (13 sources) alpha-Adrenergic Brenda Start: End: take 1 capsule by mouth once daily Tamsulosin (Flomax) 0.4 mg capsule Active 0.4 mg PO DAILY 14 May 22, 2023 12:00am Comment on above: Take 1 capsule by [facility] once daily for 16 days. Completed/Discontinued Medications Medication Drug Class(es) Dates Sig (Normalized) Sig (Original) atenolol 25 mg oral tablet (6 sources) beta-Adrenergic Brenda Start: 06-04-2015 End: 02-18-2017 take 1 tablet by mouth once daily Atenolol 25 MG tablet Discontinued 25 mg PO DAILY June 04, 2015 12:00am February 18, 2017 10:02am benzonatate 100 mg oral capsule (6 sources) Non-narcotic Antitussive Start: 12-01-2022 End: 05-24-2023 take 1 capsule by mouth every eight hours as needed benzonatate (TESSALON PERLES) 100 mg capsule Take 1 capsule by mouth three times a day as needed for cough. 15 capsule 0 12/01/2022 05/24/2023 Discontinued Start: 01-25-2022 End: 02-04-2022 take 2 capsules by mouth three times daily as needed benzonatate (TESSALON PERLE) 100 mg capsule Indications: Viral URI with cough Take 2 capsules by mouth three times daily as needed for up to 10 days. 60 capsule 0 01/25/2022 02/04/2022 Active Comment on above: Take 2 capsules by m outh three times daily as needed for up to 10 days. Take 1 capsule by mo uth three times a day as needed for cough. carbidopa 25 mg / entacapone 200 mg / levodopa 100 mg oral tablet (6 sources) Aromatic Amino Acid Decarboxylation Inhibitor, Ehsovnay-R-Kaeepvgtarqg erase Inhibitor, Aromatic Amino Acid Start: 06-04-19 End: 03-22-19 take 1 tablet by mouth at bedtime Hokmpgjgf-Duxakwmu-C ntacapone 1 EACH tablet Discontinued 1 {tbl} PO AT BEDTIME June 04, 2015 12:00am March 22, 2024 3:43pm Start: 06-04-2015 take 1 tablet by vicki at bedtime Qtpuoasnf-Gpatkwro-Ephasdidzz Active 1 TABLET PO AT BEDTIME June 04, 2015 12:00am estradiol 0.1 mg/ml vaginal cream (20 sources) Estrogen Start: 06-10-2020 End: 04-27-2022 estradiol (ESTRACE) 0.01 % ( 0.1 mg/gram) vaginal cream Apply pea-sized amount to perineum/urethral area daily as directed 42.5 g 0 06/10/2020 04/27/2022 Discontinued Start: 02-18-2017 End: 03-22-2024 Estradiol (Estrace) 0.01 % ( 0.1 mg/gram) cream Discontinued 1 g VAGINAL TWICE A WEEK 42.5 2 August 21, 2019 8:15am March 22, 2024 3:41pm Comment on above: Apply pea-sized amou nt to perineum/urethral area daily as directed fluticasone propionate 0.05 mg/actuat metered dose nasal spray (4 sources) Corticosteroid Start: 2023 End: 2023 take 2 spray(s) by mouth once daily fluticasone (FLONASE) 50 mcg/actuation nasal spray USE 2 SPRAYS IN EACH NOSTRIL ONCE DAILY. RINSE MOUTH AFTER USE. 48 mL 1 03/22/2023 12/08/2023 Discontinued Comment on above: USE 2 SPRAYS IN EACH NOSTRIL ONCE DAILY. RINSE MOUTH AFTER USE. ketorolac tromethamine 10 mg oral tablet (5 sources) Nonsteroidal Anti-inflammatory Drug, Cyclooxygenase Inhibitor Start: 2023 End: 2024 take 1 tablet by mouth four times daily as needed for pain Ketorolac 10 mg tablet Discontinued 10 mg PO 4 TIMES DAILY NEEDED as needed for pain 20 5 0 May 22, 2023 7:30am March 22, 2024 3:42pm lisinopril 5 mg oral tablet (3 sources) Angiotensin Converting Enzyme Inhibitor Start: 2019 End: 2021 take 1 tablet by mouth once daily lisinopril (ZESTRIL, PRINIVIL) 5 mg tablet Take 1 tablet by mouth once daily. 30 tablet 11 12/14/2019 09/09/2021 Discontinued Comment on above: Take 1 tablet by vicki th once daily. naproxen 500 mg oral tablet (6 sources) Nonsteroidal Anti-inflammatory Drug Start: 2015 End: 2016 take 1 tablet by mouth twice daily Naproxen 500 MG tablet Discontinued 500 mg PO TWICE A DAY 14 0 June 04, 2015 12:00am February 18, 2017 10:03am Drug Treatment Unknown - unknown (1 source) No information available. traZODone hydrochloride 100 mg oral tablet (20 sources) Serotonin Reuptake Inhibitor Start: 2024 End: 2024 take 1 tablet by mouth once daily at bedtime, then take 0.5 tablet by mouth at bedtime traZODone (DESYREL) 100 mg tablet Indications: Psychophysiological insomnia Take 1 tablet by mouth daily at bedtime. take 1/2 tablet by mouth at bedtime 30 tablet 3 06/14/2024 06/14/2024 Discontinued Start: 09-07-2020 End: 06-14-2024 take 0.5 tablet by mouth at bedtime traZODone (DESYREL) 50 mg tablet Indications: Psychophysiological insomnia take 1/2 tablet by mouth at bedtime 45 tablet 3 06/15/2023 06/14/2024 Discontinued Start: 06-04-2015 Trazodone 50 M G tablet Active 25 mg PO AT BEDTIME June 04, 2015 12:00am Start: 06-04-2015 take 25 mg by mouth at bedtime Trazodone Active 25 MG PO AT BEDTIME June 04, 2015 12:00am Comment on above: take 1/2 tablet by m outh at bedtime Problems Active Problems Problem Classification Problem Date Documented Date Episodic/Chronic Acute bronchitis (2 sources) Bronchitis; Translations: [Acute bronchitis, unspecified] Episodic Asthma (9 sources) Mild intermittent asthma; Translations: [Mild intermittent asthma, uncomplicated] Onset: 10-27-2023 12-08-2023 Chronic Calculus of urinary tract (17 sources) Renal colic; Translations: [Unspecified renal colic] Onset: 07-26-2006 Resolved: 08-03-2016 05-22-2023 Episodic Essential hypertension (20 sources) Essential hypertension; Translations: [Essential (primary) hypertension] Onset: 01-10-2009 Resolved: 08-03-2016 Chronic Genitourinary symptoms and ill-defined conditions (20 sources) Genuine stress incontinence; Translations: [Stress incontinence (female) (male)] Onset: 04-04-2019 04-04-2019 Chronic Immunizations and screening for infectious disease (5 sources) Vaccination needed; Translations: [Encounter for immunization] Onset: 06-14-2024 Episodic Menopausal disorders (20 sources) Atrophic vaginitis; Translations: [Postmenopausal atrophic vaginitis] Onset: 02-05-2015 02-05-2015 Chronic Comment on above: controlled with estr adiol cream Miscellaneous mental health disorders (6 sources) Psychophysiologic insomnia; Translations: [Psychophysiologic insomnia] Onset: 01-24-2013 Chronic Other hereditary and degenerative nervous system conditions (20 sources) Restless legs; Translations: [Restless legs syndrome] Chronic Other hereditary and degenerative nervous system conditions (1 source) Restless legs syndrome; Translations: [RLS (restless legs syndrome)] Onset: 01-24-2013 Chronic Other inflammatory condition of skin (1 source) Disorder of female perineum; Translations: [Anogenital pruritus, unspecified] 05-24-2023 Episodic Other nutritional; endocrine; and metabolic disorders (20 sources) Obese class II; Translations: [Obesity, unspecified] Onset: 09-20-2018 09-20-2018 Chronic Other nutritional; endocrine; and metabolic disorders (1 source) Hypercalcemia; Translations: [Hypercalcemia] 12-09-2022 Chronic Other nutritional; endocrine; and metabolic disorders (2 sources) Obesity caused by energy imbalance; Translations: [Other obesity due to excess calories] 01-11-2023 Chronic Other nutritional; endocrine; and metabolic disorders (1 source) Other obesity due to excess calories; Translations: [Class 2 obesity due to excess calories with body mass index (BMI) of 38.0 to 38.9 in adult, unspecified whether serious comorbidity present] Onset: 12-08-2023 Chronic Other nutritional; endocrine; and metabolic disorders (1 source) Body mass index (BMI) 38.0-38.9, adult; Translations: [Class 2 obesity due to excess calories with body mass index (BMI) of 38.0 to 38.9 in adult, unspecified whether serious comorbidity present] Onset: 12-08-2023 Chronic Other screening for suspected conditions (not mental disorders or infectious disease) (9 sources) Patient encounter status; Translations: [Encounter for screening for malignant neoplasm of colon] Onset: 06-14-2024 Episodic Other upper respiratory infections (2 sources) Chronic sinusitis; Translations: [Chronic sinusitis, unspecified] 12-01-2022 Chronic Other upper respiratory infections (5 sources) Viral upper respiratory tract infection; Translations: [Acute upper respiratory infection, unspecified] Episodic Otitis media and related conditions (1 source) Acute right otitis media; Translations: [Otitis media, unspecified, right ear] Episodic Residual codes; unclassified (9 sources) Sleep apnea; Translations: [Sleep apnea, unspecified] 08-08-2018 Chronic Residual codes; unclassified (3 sources) Obstructive sleep apnea syndrome; Translations: [Obstructive sleep apnea (adult) (pediatric)] 03-22-2024 Chronic Comment on above: 2019 AHI 32.9 Screening and history of mental health and substance abuse codes (2 sources) Encounter for screening for depression; Translations: [Encounter for screening examination for other mental health and behavioral disorders] Onset: 06-14-2024 Episodic Unclassified (1 source) No current problems or disability 03-04-2017 Unclassified (1 source) Class 2 obesity due to excess calories with body mass index (BMI) of 38.0 to 38.9 in adult, unspecified whether serious comorbidity present; Translations: [Class 2 obesity due to excess calories with body mass index (BMI) of 38.0 to 38.9 in adult, unspecified whether serious comorbidity present] Onset: 12-08-2023 Unclassified (1 source) Obesity, Class II, BMI 35-39.9; Translations: [Obesity, Class II, BMI 35-39.9] Onset: 09-20-2018 Past or Other Problems Problem Classification Problem Date Documented Da te Episodic/Chronic Allergic reactions (8 sources) Radiation-induced dermatosis; Translations: [Other skin changes due to chronic exposure to nonionizing radiation] Onset: 10-21-2004 Resolved: 12-25-2013 12-25-2013 Episodic Appendicitis and other appendiceal conditions (8 sources) Acute appendicitis; Translations: [Unspecified acute appendicitis] Onset: 10-31-2008 Resolved: 01-24-2013 01-24-2013 Episodic Diabetes mellitus without complication (20 sources) High hemoglobin A1c level; Translations: [Other abnormal glucose] Onset: 07-15-2009 Episodic Intestinal infection (8 sources) Clostridium difficile colitis; Translations: [Enterocolitis due to Clostridium difficile, not specified as recurrent] Onset: 06-11-2012 Resolved: 08-03-2016 08-03-2016 Episodic Other circulatory disease (20 sources) Elevated blood pressure; Translations: [Elevated blood-pressure reading, without diagnosis of hypertension] Onset: 01-28-2022 Episodic Other connective tissue disease (20 sources) Triggering of digit; Translations: [Trigger finger, right ring finger] Onset: 04-07-2016 04-07-2016 Episodic Other nutritional; endocrine; and metabolic disorders (13 sources) Obesity; Translations: [Other obesity due to excess calories] Onset: 07-25-2013 Resolved: 01-30-2022 Chronic Other skin disorders (16 sources) Disorder of skin pigmentation; Translations: [Disorder of pigmentation, unspecified] Onset: 10-21-2004 Resolved: 01-24-2013 11-09-2005 Episodic Other skin disorders (8 sources) Actinic keratosis; Translations: [Actinic keratosis] Onset: 11-09-2005 Resolved: 12-25-2013 12-25-2013 Episodic Other skin disorders (8 sources) Inflamed seborrheic keratosis; Translations: [Inflamed seborrheic keratosis] Onset: 11-09-2005 Resolved: 12-25-2013 12-25-2013 Episodic Other skin disorders (8 sources) Disorder of sebaceous gland; Translations: [Other specified follicular disorders] Onset: 03-01-2008 Resolved: 01-24-2013 01-24-2013 Episodic Other upper respiratory disease (8 sources) Pain in throat; Translations: [Pain in throat] Onset: 12-04-2004 Resolved: 01-24-2013 01-24-2013 Episodic Residual codes; unclassified (20 sources) Insomnia; Translations: [Insomnia, unspecified] Onset: 05-20-2012 01-24-2013 Episodic Skin and subcutaneous tissue infections (8 sources) Disorder of nail; Translations: [Cellulitis of unspecified toe] Onset: 09-02-2007 Resolved: 01-24-2013 01-24-2013 Episodic Unclassified (1 source) Patient encounter status 06-14-2024 Viral infection (8 sources) Verruca vulgaris; Translations: [Viral wart, unspecified] Onset: 03-01-2008 Resolved: 01-24-2013 01-24-2013 Episodic Results Test Name Value Interpretation Reference Range Facility Abdomen Single Viewon 2024 Abdomen Single View [facility] [address] [place] [address] [id number] Abdomen Single View MR#: [id number] Acct: [id number] Name: VALENTINA DONAHUE Rep #: [id number] : 1965 F 58 From: Sage Bryant MD PCP: Dr. Agnieszka Bruce MD Status: REG CLI Study: Abdomen Single View Date of Exam: 07/19/24 Exam# [id number] Ordering Dr: Ann-Marie Huffman MD PROCEDURE: ABDOMEN SINGLE VIEW 07/19/2024 REASON FOR EXAM: KUB- KIDNEY STONE TECHNIQUE: Single view abdomen. 2 images to include the entire abdomen and pelvis FINDINGS: No abdominal calcification identified concerning for a renal stone. Left pelvic phlebolith incidental. Visualized lung bases appear unremarkable. No gaseous distention of bowel or evidence of mass effect. RAD/Abdomen Single View IMPRESSION: No abdominal calcification identified concerning for a renal stone. Reading Location: [facility] CC: Dr. Ann-Marie Huffman MD; Dr. Agnieszka Bruce MD Manager Adult: Signed Normal [facility] CNOVon 06-14-2024 CNOV Office Visit (INTMWS ) VALENTINA DONAHUE ([id number]) 1965 F Date Time Provider Department 06/14/24 9:00 AM MACEY NERI INTMWS During your visit today, we recorded the following information about you: Pulse Blood pressure Weight 87/minute 128/72 78.7 kg Macey Neri APRN.AGILE COACH 06/14/2024 9:29 AM Signed SUBJECTIVE Valentina Donahue is a 58 year old female here today for a check up on her medical problems. Chief Complaint Patient presents with: F/U 6 months HPI Valentina Donahue is a 58 year old female. She is an established patient of Agnieszka Bruce MD. She presents today for her 6 month follow up. She reports having some tiredness. Trouble falling asleep. Trazodone not helping much. Asthma doing okay, has albuterol for as needed. Blood pressure stable. Reviewed labs. Hgba1c stable. Her medications were reviewed today and her list is now up to date. Medications Current Outpatient Medications Medication Sig albuterol HFA (PROAIR HFA) 90 mcg/actuation inhaler Inhale 2 Puffs as instructed every 6 hours as needed. losartan (COZAAR) 25 mg tablet Take 1 tablet by mouth once daily. carbidopa-levodopa (SINEMET 10-100) 10-100 mg per tablet Take 1 tablet by mouth once daily. ibuprofen (MOTRIN) 200 mg tablet Take 2-3 tablets by mouth twice daily as needed for Pain. MULTIVITAMIN TAB Take by mouth. traZODone (DESYREL) 100 mg tablet Take 1 tablet by mouth daily at bedtime. take 1/2 tablet by mouth at bedtime No current facility-administered medications for this visit. ALLERGIES Allergen Reactions Aleve [Naproxen Sod* Amoxicillin Benadryl [Diphenhyd* Rash Ceftin [Cefuroxime * Erythromycin Guaifenesin Intolerance Humibid Lisinopril Other: See Comments lightheadedness Macrobid [Nitrofura* Nortriptyline Penicillins Rash Semprex-D [Acrivast* ACTIVE PROBLEM LIST Elevated Blood Pressure Reading - 01/28/2022 Stress Incontinence - 04/04/2019 Obesity, Class II, Bmi 35-39.9 - 09/20/2018 Trigger Ring Finger of Right Hand - 04/07/2016 Postmenopausal Atrophic Vaginitis - 02/05/2015 Insomnia - 05/20/2012 Rls (Restless Legs Syndrome) Impaired Fasting Glucose - 07/15/2009 Social History Tobacco Use Smoking status: Never Smokeless tobacco: Never Vaping Use Vaping status: Never Used Substance Use Topics Alcohol use: Yes Comment: Occasionally Drug use: No Review of Systems Constitutional: Negative. Respiratory: Negative. Cardiovascular: Negative. OBJECTIVE BP 128/72 Pulse 87 Wt 173 lb 8 oz (78.7kg) SpO2 97% LMP 08/29/2010 Physical Exam Vitals and nursing note reviewed. Constitutional: General: She is awake. She is not in acute distress. Appearance: Normal appearance. She is well-developed and well-groomed. She is not ill-appearing, toxic-appearing or diaphoretic. HENT: Head: Normocephalic. Right Ear: External ear normal. Left Ear: External ear normal. Nose: Nose normal. Eyes: General: Vision grossly intact. Conjunctiva/sclera: Conjunctivae normal. Pupils: Pupils are equal, round, and reactive to light. Neck: Vascular: No JVD. Trachea: Trachea normal. Cardiovascular: Rate and Rhythm: Normal rate and regular rhythm. Pulses: Normal pulses. Heart sounds: Normal heart sounds. No murmur heard. Pulmonary: Effort: Pulmonary effort is normal. No accessory muscle usage, prolonged expiration or respiratory distress. Breath sounds: Normal breath sounds. Musculoskeletal: Cervical back: Neck supple. Skin: General: Skin is warm and dry. Capillary Refill: Capillary refill takes less than 2 seconds. Neurological: General: No focal deficit present. Mental Status: She is alert and oriented to person, place, and time. Mental status is at baseline. Psychiatric: Attention and Perception: Attention and perception normal. Mood and Affect: Mood and affect normal. Speech: Speech normal. Behavior: Behavior normal. Behavior is cooperative. Thought Content: Thought content normal. Cognition and Memory: Cognition and memory normal. Judgment: Judgment normal. ASSESSMENT/PLAN: 1. Psychophysiological insomnia - ICD9: 307.42, ICD10: F51.04 (primary diagnosis) Trial an increase in Trazodone. - TRAZODONE 100 MG TABLET 2. Mild intermittent asthma without complication (HCC) - ICD9: 493.90, ICD10: J45.20 - Mild intermittent asthma stable - Continue current medications - Avoidance of triggers recommended 3. Primary hypertension - ICD9: 401.9, ICD10: I10 - Controlled - Continue current medications - Recommend home blood pressure monitoring, to bring results to next visit - Encouraged sodium restriction, DASH or Mediterranean diet - Recommend regular aerobic exercise 4. Impaired fasting glucose - ICD9: 790.21, ICD10: R73.01 Stable. Reviewed labs. 5. Screening for depression - ICD9: V79.0, ICD10: Z13.31 - DEPRESSION SCREENI (more content not included)... Normal [facility] CBC panel Auto (Bld)on 06-03 Erythrocyte distribution width (RBC) [Ratio] 13.8 % Normal 11.5-15.0 [facility] Comment on above: Order Comment: Zhanna parrish Type: BLOOD SPECIMEN Ordering Facility: [facility] Address: [address] [place] [address] Performed By: #### 2 4323-8, 3015-3 #### [facility] CLIA [id number] [address] [place] [address] [place] Hematocrit (Bld) [Volume fraction] 45.3 % Normal 36.0-46.0 [facility] Comment on above: Order Comment: Zhanna parrish Type: BLOOD SPECIMEN Ordering Facility: [facility] Address: [address] [place] [address] Performed By: #### 2 4323-8, 6-3 #### [facility] CLIA [id number] [address] [place] [address] [place] Hemoglobin (Bld) [Mass/Vol] 13.9 g/dL Normal 11.5-15.5 [facility] Comment on above: Order Comment: Zhanna parrish Type: BLOOD SPECIMEN Ordering Facility: [facility] Address: [address] [place] [address] Performed By: #### 2 4323-8, 3016-3 #### [facility] CLIA [id number] [address] [place] [address] [place] MCH (RBC) [Entitic mass] 27.7 pg Normal 26.0-34.0 [facility] Comment on above: Order Comment: Speci men Type: BLOOD SPECIMEN Ordering Facility: [facility] Address: [address] [place] [address] Performed By: #### 2 4323-8, 6-3 #### [facility] CLIA [id number] [address] [place] [address] [place] MCHC (RBC) [Mass/Vol] 30.7 g/dL Normal 30.5-36.0 [facility] Comment on above: Order Comment: Speci men Type: BLOOD SPECIMEN Ordering Facility: [facility] Address: [address] [place] [address] Performed By: #### 2 4323-8, 6-3 #### [facility] CLIA [id number] [address] [place] [address] [place] MCV (RBC) [Entitic vol] 90.4 fL Normal 80.0-100.0 [facility] Comment on above: Order Comment: Speci men Type: BLOOD SPECIMEN Ordering Facility: [facility] Address: [address] [place] [address] Performed By: #### 2 4323-8, 6-3 #### [facility] CLIA [id number] [address] [place] [address] [place] Nucleated RBC (Bld) [#/Vol] 10*3/uL Normal <0.01 [facility] Comment on above: Order Comment: Speci men Type: BLOOD SPECIMEN Ordering Facility: [facility] Address: [address] [place] [address] Performed By: #### 2 4323-8, 3016-3 #### [facility] CLIA [id number] [address] [place], [place] [id number] [place] Platelet mean volume (Bld) [Entitic vol] 10.6 fL Normal 9.0-12.7 [facility] Comment on above: Order Comment: Speci men Type: BLOOD SPECIMEN Ordering Facility: [facility] Address: [address] [place] [address] Performed By: #### 2 4323-8, 6-3 #### [facility] CLIA [id number] [address] [place] [address] [place] Platelets (Bld) [#/Vol] 302 10*3/uL Normal 150-400 [facility] Comment on above: Order Comment: Speci men Type: BLOOD SPECIMEN Ordering Facility: [facility] Address: [address] [place] [address] Performed By: #### 2 4323-8, 3015-3 #### [facility] CLIA [id number] [address] [place], [place] [address] [place] RBC (Bld) [#/Vol] 5.01 10*6/uL Normal 3.90-5.20 [facility] Comment on above: Order Comment: Speci men Type: BLOOD SPECIMEN Ordering Facility: [facility] Address: [address] [place] [address] Performed By: #### 2 4323-8, 3016-3 #### [facility] CLIA [id number] [address] [place], [place] [address] [place] WBC (Bld) [#/Vol] 5.76 10*3/uL Normal 3.70-11.00 [facility] Comment on above: Order Comment: Speci men Type: BLOOD SPECIMEN Ordering Facility: [facility] Address: [address] [place] [address] Performed By: #### 2 4323-8, 3016-3 #### [facility] CLIA [id number] [address] [place], [place] [address] [place] Comprehensive metabolic 2000 panelon 06-03-2024 Albumin [Mass/Vol] 4.2 g/dL Normal 3.9-4.[address] [facility] Comment on above: Order Comment: Speci men Type: BLOOD SPECIMEN Ordering Facility: [facility] Address: [address] [place] [address] Performed By: #### 2 4323-8, 3016-3 #### [facility] CLIA [id number] [address] [place] [address] [place] ALP [Catalytic activity/Vol] 52 U/L Normal 34-123 [facility] Comment on above: Order Comment: Speci men Type: BLOOD SPECIMEN Ordering Facility: [facility] Address: [address] [place] [address] Performed By: #### 2 4323-8, 3016-3 #### [facility] CLIA [id number] [address] [place] [address] [place] ALT [Catalytic activity/Vol] 18 U/L Normal 7-38 [facility] Comment on above: Order Comment: Speci men Type: BLOOD SPECIMEN Ordering Facility: [facility] Address: [address] [place] [address] Performed By: #### 2 4323-8, 3016-3 #### [facility] CLIA [id number] [address] [place], [place] [address] [place] Anion gap [Moles/Vol] 13 mmol/L Normal 8-15 [facility] Comment on above: Order Comment: Speci men Type: BLOOD SPECIMEN Ordering Facility: [facility] Address: [address] [place] [address] Performed By: #### 2 4323-8, 3016-3 #### [facility] CLIA [id number] [address] [id number] [address] [place] AST [Catalytic activity/Vol] 19 U/L Normal 13-35 [facility] Comment on above: Order Comment: Speci men Type: BLOOD SPECIMEN Ordering Facility: [facility] Address: [address] [place] [address] Performed By: #### 2 4323-8, 6-3 #### [facility] CLIA [id number] [address] [place] [address] [place] Bilirubin [Mass/Vol] 0.6 mg/dL Normal 0.2-1.3 [facility] Comment on above: Order Comment: Speci men Type: BLOOD SPECIMEN Ordering Facility: [facility] Address: [address] [place] [address] Performed By: #### 2 4323-8, 3015-3 #### [facility] CLIA [id number] [address] [place] [address] [place] Calcium [Mass/Vol] 9.7 mg/dL Normal 8.5-10.[address] [facility] Comment on above: Order Comment: Speci men Type: BLOOD SPECIMEN Ordering Facility: [facility] Address: [address] [place] [address] Performed By: #### 2 4323-8, 3015-3 #### [facility] CLIA [id number] [address] [place] [address] [place] Chloride [Moles/Vol] 103 mmol/L Normal 98-107 [facility] Comment on above: Order Comment: Speci men Type: BLOOD SPECIMEN Ordering Facility: [facility] Address: [address] [place], [place] [address] Performed By: #### 2 4323-8, 6-3 #### [facility] CLIA [id number] [address] [place] [address] [place] CO2 [Moles/Vol] 25 mmol/L Normal 22-30 [facility] Comment on above: Order Comment: Speci men Type: BLOOD SPECIMEN Ordering Facility: [facility] Address: [address] [place] [address] Performed By: #### 2 4323-8, 3016-3 #### [facility] CLIA [id number] [address] [place] [address] [place] Creatinine [Mass/Vol] 0.70 mg/dL Normal 0.58-0.96 [facility] Comment on above: Order Comment: Speci men Type: BLOOD SPECIMEN Ordering Facility: [facility] Address: [address] [place] [address] Performed By: #### 2 4323-8, 6-3 #### [facility] CLIA [id number] [address] [place] [address] [place] Creatinine and Glomerular filtration rate.predicted panel (S/P/Bld) 100 mL/min/1.73m??? Normal >=60 [facility] Comment on above: Order Comment: Radhai men Type: BLOOD SPECIMEN Ordering Facility: [facility] Address: [address] [place] [address] Result Comment: Erin mated Glomerular Filtration Rate (eGFR) is calculated using the 2020 CKD-EPI creatinine equation. This equation utilizes serum creatinine, sex, and age as parameters. The creatinine assay has traceable calibration to isotope dilution-mass spectrometry. Refer to KDIGO guidelines for clinical interpretation. In patients with unstable renal function, e.g. those with acute kidney injury, the eGFR may not accurately reflect actual GFR. Performed By: #### 2 4323-8, 6-3 #### [facility] CLIA [id number] [address] [place] [address] [place] Glucose [Mass/Vol] 97 mg/dL Normal 74-[address] [facility] Comment on above: Order Comment: Radhai men Type: BLOOD SPECIMEN Ordering Facility: [facility] Address: [address] [place] [address] Result Comment: The [place] Diabetes Association (ADA) provides guidance for cutoff values for fasting glucose and random glucose. The ADA defines fasting as no caloric intake for at least 8 hours. Fasting plasma glucose results between 100 to 125 mg/dL indicate increased risk for diabetes (prediabetes). Fasting plasma glucose results greater than or equal to 126 mg/dL meet the criteria for diagnosis of diabetes. In the absence of unequivocal hyperglycemia, results should be confirmed by repeat testing. In a patient with classic symptoms of hyperglycemia or hyperglycemic crisis, random plasma glucose results greater than or equal to 200 mg/dL meet the criteria for diagnosis of diabetes. Reference: Standards of Medical Care in Diabetes 2016, [place] [employer] Association. Diabetes Care. 2016.39(Suppl 1). Performed By: #### 2 4323-8, 6-3 #### [facility] CLIA [id number] [address] [place] [address] [place] Potassium [Moles/Vol] 4.5 mmol/L Normal 3.7-5.1 [facility] Comment on above: Order Comment: Speci men Type: BLOOD SPECIMEN Ordering Facility: [facility] Address: [address] [place] [address] Performed By: #### 2 4323-8, 3 #### [facility] CLIA [id number] [address] [place] [address] [place] Protein [Mass/Vol] 6.9 g/dL Normal 6.3-8.[address] [facility] Comment on above: Order Comment: Speci men Type: BLOOD SPECIMEN Ordering Facility: [facility] Address: [address] [place] [address] Performed By: #### 2 4323-8, 3 #### [facility] CLIA [id number] [address] [place], [place] [address] [place] Sodium [Moles/Vol] 141 mmol/L Normal 136-[address] [facility] Comment on above: Order Comment: Speci men Type: BLOOD SPECIMEN Ordering Facility: [facility] Address: [address] [place] [address] Performed By: #### 2 4323-8, 3015-3 #### [facility] CLIA [id number] [address] [place] [address] [place] Urea nitrogen [Mass/Vol] 19 mg/dL Normal 7-21 [facility] Comment on above: Order Comment: Zhanna parrish Type: BLOOD SPECIMEN Ordering Facility: [facility] Address: [address] [place] [address] Performed By: #### 2 4323-8, 3016-3 #### [facility] CLIA [id number] [address] [place] [address] [place] HbA1c (Bld)on 06-03-2024 Average glucose Estimated from glycated hemoglobin (Bld) [Mass/Vol] 117 mg/dL Normal [facility] Comment on above: Order Comment: Zhanna parrish Type: BLOOD SPECIMEN Ordering Facility: [facility] Address: [address] [place] [address] Result Comment: eAG: (Estimated average glucose) is a calculated value from HgbA1c and is advertising representative of the average blood glucose level in the last 2-3 month period. Performed By: #### 5 5454-3 #### [facility] CLIA [id number] [address] [place] [address] [place] HbA1c (Bld) [Mass fraction] 5.7 % High 4.3-5.6 [facility] Comment on above: Order Comment: Zhanna parrish Type: BLOOD SPECIMEN Ordering Facility: [facility] Address: [address] [place] [address] Result Comment: [place] Diabetes Association guidelines indicate that patients with HgbA1c in the range 5.7-6.4% are at increased risk for development of diabetes, and intervention by lifestyle modification may be beneficial. HgbA1c greater or equal to 6.5% is considered diagnostic of diabetes. Performed By: #### 5 5454-3 #### [facility] CLIA [id number] [address] [place] [address] [place] Lipid 1996 panelon 5 Cholesterol [Mass/Vol] 200 mg/dL High <200 [facility] Comment on above: Order Comment: Radhai men Type: BLOOD SPECIMEN Ordering Facility: [facility] Address: [address] [place] [address] Result Comment: <200 mg/dL, Desirable 200-239 mg/dL, Borderline high >239 mg/dL, High Performed By: #### 2 4323-8, 3016-3 #### [facility] CLIA [id number] [address] [place] [address] [place] Cholesterol in HDL [Mass/Vol] 60 mg/dL Normal >39 [facility] Comment on above: Order Comment: Radhai men Type: BLOOD SPECIMEN Ordering Facility: [facility] Address: [address] [place] [address] Result Comment: 40-5 9 mg/dL, Acceptable >59 mg/dL, High: Negative risk factor for coronary heart disease <40 mg/dL, Low: Positive risk factor for coronary heart disease Performed By: #### 2 4323-8, 3016-3 #### [facility] CLIA [id number] [address] [place] [address] [place] Cholesterol in LDL [Mass/Vol] 120 mg/dL High <100 [facility] Comment on above: Order Comment: Zhanna men Type: BLOOD SPECIMEN Ordering Facility: [facility] Address: [address] [place] [address] Result Comment: <100 mg/dL, Optimal 100-129 mg/dL, Near optimal/above optimal 130-159 mg/dL, Borderline high 160-189 mg/dL, High >189 mg/dL, Very high Secondary prevention optimal LDL Cholesterol levels are recommended to be < 70 mg/dL Performed By: #### 2 4323-8, 3016-3 #### [facility] CLIA [id number] [address] [place] [address] [place] Cholesterol in LDL/Cholesterol in HDL [Mass ratio] 2.00 {ratio} Normal <2.54 [facility] Comment on above: Order Comment: Speci men Type: BLOOD SPECIMEN Ordering Facility: [facility] Address: [address] [place] [address] Result Comment: Ju weaver: 1. National Cholesterol Education Program ATP III Guideline At-A-Glance Quick Desk Reference: National Heart, Lung, and Blood [place]. National Institutes of Health. 2001: NIH Publication No. 01-3305. 2. An International Atherosclerosis Society position paper: global recommendations for the management of dyslipidemia: executive summary, Atherosclerosis. 2014: 232(2):410-413. Performed By: #### 2 4323-8, 3016-3 #### [facility] CLIA [id number] [address] [place] [address] [place] Cholesterol in VLDL [Mass/Vol] 20 mg/dL Normal <30 [facility] Comment on above: Order Comment: Zhanna parrish Type: BLOOD SPECIMEN Ordering Facility: [facility] Address: [address] [place] [address] Performed By: #### 2 4323-8, 6-3 #### [facility] CLIA [id number] [address] [place] [address] [place] Cholesterol non HDL [Mass/Vol] 140 mg/dL High <130 [facility] Comment on above: Order Comment: Zhanna parrish Type: BLOOD SPECIMEN Ordering Facility: [facility] Address: [address] [place] [address] Result Comment: <130 mg/dL, Optimal 130-159 mg/dL, Near optimal/above optimal 160-189 mg/dL, Borderline high 190-219 mg/dL, High >219 mg/dL, Very high Secondary prevention optimal non HDL Cholesterol levels are recommended to be <100 mg/dL Performed By: #### 2 4323-8, 3016-3 #### [facility] CLIA [id number] [address] [place] [address] [place] Cholesterol.total/Gini sterol in HDL [Mass ratio] 3.33 {ratio} Normal <5.10 [facility] Comment on above: Order Comment: Zhanna parrish Type: BLOOD SPECIMEN Ordering Facility: [facility] Address: [address] [place], [place] [address] Performed By: #### 2 4323-8, 3016-3 #### [facility] CLIA [id number] [address] [place] [address] [place] FASTING TIME 12 hrs Normal [facility] Comment on above: Order Comment: Speci men Type: BLOOD SPECIMEN Ordering Facility: [facility] Address: [address] [place] [address] Performed By: #### 2 4323-8, 3016-3 #### [facility] CLIA [id number] [address] [place] [address] [place] Triglyceride [Mass/Vol] 101 mg/dL Normal <150 [facility] Comment on above: Order Comment: Speci men Type: BLOOD SPECIMEN Ordering Facility: [facility] Address: [address] [place] [address] Result Comment: <150 mg/dL, Normal 150-199 mg/dL, Borderline high 200-499 mg/dL, High >499 mg/dL, Very high Performed By: #### 2 4323-8, 3016-3 #### [facility] CLIA [id number] [address] [place] [address] [place] Pulmonary Visit Reporton Pulmonary Visit Report [facility] of [address] [place] [address] OFFICE VISIT Date of Service: 03/22/24 MR#: [id number] Acct: [id number] Name: VALENTINA DONAHUE Rep #: [id number] : 1965 Provider: Flores Wright NP Age/Sex: 58/F Location: [facility]PM[facility] Status: Signed Assessment and Plan Assessment and Plan (1) Asthma: Status: Chronic Qualifiers: Asthma severity: moderate Asthma persistence: persistent Asthma complication type: uncomplicated Qualified Code(s): J45.40 - Moderate persistent asthma, uncomplicated Plan: Well controlled with ICS/LABA therapy. No exacerbation today. The patient reports that her inhaler is costly, she is given a new prescription for the same inhaler, AirDuo 232, using the good rx coupon for which is more affordable for her. She is encouraged to continue with good oral hygiene after inhaler use. She should use albuterol on an as needed basis. The sick policy has been reviewed with patient today. The mild restriction on PFT is likely from obesity, she had a normal PA and Lat chest xray in June 2023. Follow up in 6 months. (2) Obstructive sleep apnea: Status: Chronic Plan: Patient is using and benefiting from Pap therapy. Apnea is well controlled on Autopap 5-13.??? No indication for titration study at this time. The patient would like to transfer DME to [facility]. Send appropriate paper work so she can become established. Contact the office for any new or worsening symptoms in the meantime.??? Compliance download on follow up. Medications: New fluticasone propion-salmeterol 232-14 mcg/actuation generic with GoodRx coupon 1 inh inhalation BID 1 ea 11RF Plan Details Follow Up: 6 Months (LMR) HPI HPI Comments Details: This is a 58-year-old female patient who presents today to establish for sleep apnea and asthma. She is ambulatory and currently on room air. She previously had followed with Dr. Caldwell. For asthma she is utilizing air duo 232 1 puff twice daily. Her last PFT from September 2023 shows FVC 74% predicted, FEV1 84% predicted, FEV1/FVC ratio at 92% predicted, no significant reversibility with use of beta agonist, TLC of 78% predicted, RV 91% predicted, DLCO 117% predicted which had improved from previous PFT from June 2023. Mild restriction with preserved gas transfer identified. She had a 6MWT which showed deconditioning but normal oxygenation, no requirement of supplemental oxygen. For asthma she is utilizing air duo 232, 1 puff twice daily and reports she is rinsing well. She has had no problems with thrush. She has not needed albuterol inhaler. She did require antibiotic for strep throat between and New Years. She needed prednisone at this time as well due to asthma exacerbation. This is the only dose of prednisone she has needed this year. She has never been hospitalized for her asthma. She works in the [employer] room at [employer] No hospitalization for asthma. Known triggers for her asthma include steam from dishes and heat in the dish room which will produce cough and breathing heavy. Lifetime non smoker, but exposure to cigarette smoke as child. She does have an occasional nonproductive dry cough at baseline. She denies shortness of breath, wheeze, chest congestion. She denies chest pain, chest tightness. She denies headache and dry mouth. She also denies fever, chills, night sweats. She underwent HST tesing on 06/01/2018 and was found to have an AHI of 32.9/hour. The patient is using Autopap 5-13 without significant air leak, oral dryness, snore. There are no concerns about the air pressure. Sleep is refreshing as long as she is not interrupted frequently be her dogs. The patient is reporting good compliance. Daytime hypersomnia is improved. Nasal mask is being used. ESS is 3. She would like to establish with a new DME company. Documentation reviewed with patient today includes: Compliance download from March 16, 2024 which shows AHI of 1.6 on an AutoPap of 5 to 13 cm. The average pressure is 12.5 cm. There is minimal air leak identified with a 20.6 L/min airleak. Intake Vital Signs 09/15/23 09:02 02/22/24 13:22 03/22/24 09:24 Height 4 ft 8 in 4 ft 8 in 4 ft 8 in Weight: 170 lb BMI 38.1 BP 130/76 H Blood Pressure Location Lt brachial Position Sitting Respiration 18 Pulse 85 Pulse Source Monitor Temp 97.2 F L Temperature Source Temporal Artery Pulse Oximetry (%) 95 Oxygen Delivery Method room air Intake Visit Reasons: Sleep apnea, asthma Chief Complaint: Annual Drafting Layout Man Required: No DME Vendor: [facility] Accompanied by: Allergies acrivastine (From Semprex-D) Allergy (Verified 03/22/24 14:41) Other cefuroxime axetil (From Ceftin) Allergy (Verified 03/22/24 14:41) Rash diphenhydramine HCl (From Benadryl) Landon (more content not included)... Normal [facility] CNOVon 02-27-2024 CNOV Office Visit (UCWSTR ) VALENTINA DONAHUE ([id number]) 1965 F Date Time Provider Department 02/27/24 12:00 PM RAFAELA HAND [facility] During your visit today, we recorded the following information about you: Temperature Pulse Respiration Blood pressure 98.7 degrees 96/minute 18/minute 124/82 Weight 78.1 kg Rafaela Hand, ADELE.AGILE COACH 02/27/2024 12:27 PM Signed Subjective Sore Throat Associated symptoms include congestion, coughing and shortness of breath. Pertinent negatives include no diarrhea or vomiting. Valentina Donahue is a 58 year old female who presents with one week of sore throat, chest congestion, sinus congestion and cough. She has not had a fever. Denies known sick contacts. She has been taking mucinex. States her chest hurts with cough and cough is non-productive. Review of Systems Constitutional: Negative for chills, fever and malaise/fatigue. HENT: Positive for congestion and sore throat. Respiratory: Positive for cough, shortness of breath and wheezing. Negative for sputum production. Cardiovascular: Negative. Gastrointestinal: Negative for diarrhea, nausea and vomiting. Musculoskeletal: Negative for myalgias. BP 124/82 Pulse 96 Temp 37.1 ?C (98.7 ?F) (Tympanic) Resp 18 Wt 78.1 kg (172 lb 2.9 oz) LMP 08/29/2010 SpO2 99% BMI 37.92 kg/m? PAST MEDICAL HISTORY Diagnosis Date C. difficile colitis 06/11/2012 Calculus of kidney 07/26/2006 Essential hypertension 01/10/2009 Impaired Fasting Glucose 07/15/2009 Resolved RLS (restless legs syndrome) Trigger ring finger of right hand 04/07/2016 Unspecified Essential Hypertension 01/10/2009 Urinary calculus, unspecified Renal stones PAST SURGICAL HISTORY Procedure Laterality Date ABDOMINAL SURGERY HX APPENDECTOMY HX COLONOSCOPY 04/11/2021 repeat in 5 years INCISE FINGER TENDON SHEATH Right 07/23/2016 Right ring trigger finger release LAPAROSCOPIC APPENDECTOMY 10/27/2008 PAST SURGICAL HISTORY OF wisdom teeth PAST SURGICAL HISTORY OF meredith excised from nose PAST SURGICAL HISTORY OF 2005 kidney stone removed ALLERGIES Aleve [Naproxen Sodium], Amoxicillin, Benadryl [Diphenhydramine Hcl], Ceftin [Cefuroxime Axetil], Erythromycin, Guaifenesin, Lisinopril, Macrobid [Nitrofurantoin Monohyd/M-Cryst], Nortriptyline, Penicillins, and Semprex-D [Acrivastine-Pseudoeph edrine] MEDICATIONS albuterol HFA (PROAIR HFA) 90 mcg/actuation inhaler Inhale 2 Puffs as instructed every 6 hours as needed. losartan (COZAAR) 25 mg tablet Take 1 tablet by mouth once daily. carbidopa-levodopa (SINEMET 10-100) 10-100 mg per tablet Take 1 tablet by mouth once daily. traZODone (DESYREL) 50 mg tablet take 1/2 tablet by mouth at bedtime tamsulosin (FLOMAX) 0.4 mg Take 1 capsule by mouth once daily for 16 days. ibuprofen (MOTRIN) 200 mg tablet Take 2-3 tablets by mouth twice daily as needed for Pain. MULTIVITAMIN TAB Take by mouth. azithromycin (ZITHROMAX) 500 mg tablet Take 1 tablet by mouth once daily for 5 days. predniSONE (DELTASONE) 20 mg tablet Take 2 tablets by mouth once daily for 4 days. FAMILY HISTORY Problem Relation Age of Onset Hypertension Mother Cancer Mother Ovarian Osteoporosis Mother Heart Father pacemaker Hypertension Father Skin Cancer Sister not sure what type; had 2 skin cancer lesions excised Heart Maternal Grandmother from massive heart attack Social History Tobacco Use Smoking status: Never Smokeless tobacco: Never Vaping Use Vaping status: Never Used Substance Use Topics Alcohol use: Yes Comment: Occasionally Drug use: No Objective Physical Exam Vitals and nursing note reviewed. Constitutional: General: She is not in acute distress. Appearance: Normal appearance. She is not ill-appearing. HENT: Right Ear: Tympanic membrane, ear canal and external ear normal. Left Ear: Tympanic membrane, ear canal and external ear normal. Nose: Mucosal edema, congestion and rhinorrhea present. Mouth/Throat: Pharynx: Uvula midline. Posterior oropharyngeal erythema present. No oropharyngeal exudate. Cardiovascular: Rate and Rhythm: Normal rate and regular rhythm. Heart sounds: Normal heart sounds. Pulmonary: Effort: Pulmonary effort is normal. No respiratory distress. Breath sounds: Examination of the right-upper field reveals wheezing. Examination of the left-upper field reveals wheezing. Wheezing present. No rales. Musculoskeletal: Cervical back: Neck supple. Lymphadenopathy: Cervical: No cervical adenopathy. Skin: General: Skin is warm and dry. Findings: No erythema or rash. Neurological: Mental Status: She is alert. ASSESSMENT/PLAN: 1. Sore throat - ICD9: 462, ICD10: J02.9 (primary diagnosis) - Group A strep molecular testing positive - Discussed supportive care treatment with fluids, rest and analgesia. - STREP A MOL (more content not included)... Normal [facility] STREP A MOLECULAR (POC)on Interpretation and review of laboratory results Abnormal [facility] Procedural Control Valid [facility] Strep A (POCT) Positive Abnormal Negative [facility] CNPNon 02-11-2024 CNPN Telephone (INTMWS) VALENTINA DONAHUE ([id number]) 1965 F Date Time Provider Department 02/11/24 AGNIESZKA BRUCE INTMWS During your visit today, we recorded the following information about you: Wong Abraham 02/11/2024 11:55 AM Signed Patient came in stating they would like a referral to pulmonology for [facility]. 02/11/24 : Agnieszka Arango MD 02/20/2024 4:27 PM Signed Filed consult order Fax as requested Ronna Mesa MA 02/21/2024 9:31 AM Signed Order faxed to [facility]. Allergies As of Date: 02/11/2024 Noted Allergy Reaction ALEVE (NAPROXEN SODIUM) 12/04/2004 AMOXICILLIN 12/04/2004 BENADRYL (DIPHENHYDRAMINE HCL) 12/04/2004 2 - Rash CEFTIN (CEFUROXIME AXETIL) 12/04/2004 ERYTHROMYCIN 12/04/2004 GUAIFENESIN 12/04/2004 5 - Intolerance Comments: Humibid LISINOPRIL 09/09/2021 14 - Other: See Comments Comments: lightheadedness MACROBID (NITROFURANTOIN MONOHYD/*12/04/2004 NORTRIPTYLINE 12/04/2004 PENICILLINS 08/19/2007 2 - Rash SEMPREX-D (ACRIVASTINE-PSEUDOEPH E*12/04/2004 Date Reviewed: 12/20/2023 Reviewed by: Jyoti Cruz MA - Fully Assessed Reason for Visit: Orders [681] Cmt: Needs referral for [facility] pulmon[facility] Primary Visit Diagnosis:Mild intermittent asthma, unspecified whether complicated [J45.20] Order(s):CONSULT TO PULMONARY MEDICINE [[id number]] Order #: [id number]: 1 Prescriptions as of 02/21/2024 - albuterol HFA (PROAIR HFA) 90 mcg/actuation inhaler Inhale 2 Puffs as instructed every 6 hours as needed. - losartan (COZAAR) 25 mg tablet Take 1 tablet by mouth once daily. - carbidopa-levodopa (SINEMET 10-100) 10-100 mg per tablet Take 1 tablet by mouth once daily. - traZODone (DESYREL) 50 mg tablet take 1/2 tablet by mouth at bedtime - tamsulosin (FLOMAX) 0.4 mg Take 1 capsule by mouth once daily for 16 days. - ibuprofen (MOTRIN) 200 mg tablet Take 2-3 tablets by mouth twice daily as needed for Pain. - MULTIVITAMIN TAB Take by mouth. Problem List As Of Date 02/11/2024 Noted Resolved DYSCHROMIA OTHER [L81.9] 10/21/2004 11/09/2005 Other chronic dermatitis due to solar radiation*10/21/2004 12/25/2013 Throat pain [R07.0] 12/04/2004 01/24/2013 Actinic keratosis [L57.0] 11/09/2005 12/25/2013 Inflamed seborrheic keratosis [L82.0] 11/09/2005 12/25/2013 SOLAR LENTIGENES///DYSCHROMI A OTHER [L81.9] 11/09/2005 01/24/2013 Calculus of kidney [N20.0] 07/26/2006 08/03/2016 Onychia and paronychia of toe [L03.039] 09/02/2007 01/24/2013 Viral warts, unspecified [B07.9] 03/01/2008 01/24/2013 XEROSIS///SEBACEOUS GLAND DIS NEC [L73.8] 03/01/2008 01/24/2013 Acute appendicitis without mention of peritonit*10/31/2008 01/24/2013 Essential hypertension [I10] 01/10/2009 08/03/2016 Impaired fasting glucose [R73.01] 07/15/2009 RLS (restless legs syndrome) [G25.81] Insomnia [G47.00] 05/20/2012 C. difficile colitis [A04.72] 06/11/2012 08/03/2016 Obesity [E66.9] 07/25/2013 01/30/2022 Postmenopausal atrophic vaginitis [N95.2] 02/05/2015 Trigger ring finger of right hand [M65.341] 04/07/2016 Obesity, Class II, BMI 35-39.9 [E66.812] 09/20/2018 Stress incontinence [N39.3] 04/04/2019 Elevated blood pressure reading [R03.0] 01/28/2022 Encounter Status:Closed by RONNA MESA on 02/21/24 [facility] CNOVon 12-20-2023 CNOV Office Visit (UCWSTR ) VALENTINA DONAHUE ([id number]) 1965 F Date Time Provider Department 12/20/23 4:15 PM [facility] During your visit today, we recorded the following information about you: Temperature Pulse Respiration Blood pressure 98.2 degrees 90/minute 14/minute 126/82 Weight 80 kg Monika Bales APRN.SANDY 12/20/2023 4:26 PM Signed CC: Patient presents with: Ear Pain: Bilateral x 5 days Sore throat x 3 days HPI: Valentina Donahue is a 58 year old female who presents to the office with complaint of sore throat and ear symptoms for a few days. Symptoms are worsening Associated symptoms includes sore throat. Denies fever, wheezing, dyspnea, nausea, vomiting , and diarrhea. Treatments tried include nothing so far. with no relief of symptoms. Sick contacts: unknown. History of asthma, frequent episodes of bronchitis, chronic bronchitis, bronchiectasis or COPD: No Smoker: No Seasonal/environmental allergies: No The ROS is otherwise negative. The patient's pmh, medications, allergies, and past visits are reviewed. PHYSICAL EXAM: BP 126/82 Pulse 90 Temp 36.8 ?C (98.2 ?F) (Tympanic) Resp 14 Wt 80 kg (176 lb 5.9 oz) LMP 08/29/2010 SpO2 95% BMI 38.84 kg/m? General appearance: alert, cooperative, pleasant, in no acute distress Head: Normocephalic Eyes: EOM's intact, conjunctiva pink and moist, no icterus, sclera white, non-injected Ears: Right ear: External ear/canal- Normal, TM - clear with good landmarks. Left ear: External ear/canal- Normal, TM - clear with good landmarks Oropharynx:moderate erythema, without exudates present Heart: Negative. RRR without obvious murmur, gallop, or rubs. No ectopy. Lungs: clear to auscultation, without rales or wheeze, good air exchange PAST MEDICAL HISTORY Diagnosis Date C. difficile colitis 06/11/2012 Calculus of kidney 07/26/2006 Essential hypertension 01/10/2009 Impaired Fasting Glucose 07/15/2009 Resolved RLS (restless legs syndrome) Trigger ring finger of right hand 04/07/2016 Unspecified Essential Hypertension 01/10/2009 Urinary calculus, unspecified Renal stones PAST SURGICAL HISTORY Procedure Laterality Date ABDOMINAL SURGERY HX APPENDECTOMY HX COLONOSCOPY 04/11/2021 repeat in 5 years INCISE FINGER TENDON SHEATH Right 07/23/2016 Right ring trigger finger release LAPAROSCOPIC APPENDECTOMY 10/27/2008 PAST SURGICAL HISTORY OF wisdom teeth PAST SURGICAL HISTORY OF meredith excised from nose PAST SURGICAL HISTORY OF 2006 kidney stone removed ALLERGIES Aleve [Naproxen Sodium], Amoxicillin, Benadryl [Diphenhydramine Hcl], Ceftin [Cefuroxime Axetil], Erythromycin, Guaifenesin, Lisinopril, Macrobid [Nitrofurantoin Monohyd/M-Cryst], Nortriptyline, Penicillins, and Semprex-D [Acrivastine-Pseudoeph edrine] MEDICATIONS albuterol HFA (PROAIR HFA) 90 mcg/actuation inhaler Inhale 2 Puffs as instructed every 6 hours as needed. losartan (COZAAR) 25 mg tablet Take 1 tablet by mouth once daily. carbidopa-levodopa (SINEMET 10-100) 10-100 mg per tablet Take 1 tablet by mouth once daily. traZODone (DESYREL) 50 mg tablet take 1/2 tablet by mouth at bedtime ibuprofen (MOTRIN) 200 mg tablet Take 2-3 tablets by mouth twice daily as needed for Pain. MULTIVITAMIN TAB Take by mouth. tamsulosin (FLOMAX) 0.4 mg Take 1 capsule by mouth once daily for 16 days. FAMILY HISTORY Problem Relation Age of Onset Hypertension Mother Cancer Mother Ovarian Osteoporosis Mother Heart Father pacemaker Hypertension Father Skin Cancer Sister not sure what type; had 2 skin cancer lesions excised Heart Maternal Grandmother from massive heart attack Social History Tobacco Use Smoking status: Never Smokeless tobacco: Never Vaping Use Vaping status: Never Used Substance Use Topics Alcohol use: Yes Comment: Occasionally Drug use: No ASSESSMENT/PLAN: 1. Sore throat - ICD9: 462, ICD10: J02.9 - STREP A MOLECULAR (POC) - neg Budesonide ordered Prescription instructions reviewed with patient as applicable. Potential red flag symptoms discussed with the patient. Reviewed appropriate action plan to take if red flag symptoms occur. Patient agreeable to treatment plan. Monika Bales APRN.AGILE COACH Allergies As of Date: 12/20/2023 Noted Allergy Reaction ALEVE (NAPROXEN SODIUM) 12/04/2004 AMOXICILLIN 12/04/2004 BENADRYL (DIPHENHYDRAMINE HCL) 12/04/2004 2 - Rash CEFTIN (CEFUROXIME AXETIL) 12/04/2004 ERYTHROMYCIN 12/04/2004 GUAIFENESIN 12/04/2004 5 - Intolerance Comments: Humibid LISINOPRIL 09/09/2021 14 - Other: See Comments Comments: lightheadedness MACROBID (NITROFURANTOIN MONOHYD/*12/04/2004 NORTRIPTYLINE 12/04/2004 PENICILLINS 08/19/2007 2 - Rash SEMPREX-D (ACRIVASTINE-PSEUDOEPH E*12/04/2004 Date Reviewed: 12/20/2023 Reviewed by: Jyoti Cruz MA - Fully Assessed (more content not included)... Normal [facility] STREP A MOLECULAR (POC)on Procedural Control Valid [facility] Strep A (POCT) Negative Negative [facility] CNOVon 12-08-2023 CNOV Office Visit (INTMWS ) VALENTINA DONAHUE ([id number]) 1965 F Date Time Provider Department 12/08/23 10:00 AM AGNIESZKA BRUCE INTMWS During your visit today, we recorded the following information about you: Temperature Pulse Respiration Blood pressure 98.3 degrees 79/minute 16/minute 110/76 Weight 79.1 kg Agnieszka Bruce MD 12/08/2023 10:42 AM Signed This note was created using [employer]. Subjective Valentina Donahue is a 58 year old female. Patient presents with: F/U 6 months: Labs prior SUBJECTIVE: Valentina Donahue is a 58 year old year old lady here today for 6 month follow up appointment for review of medical conditions. Decided does not want Hep B vaccine after all. The patient is a 58-year-old female with a history of HTN, asthma, and RLS, presenting for a 6-month follow-up visit. The patient reports significant lifestyle changes over the past six months, including eliminating deep-fried foods, increasing vegetable intake, and reducing snacking, particularly on chips and pretzels. These dietary modifications have resulted in a weight loss of nearly 10 lbs since May. She denies any new symptoms or issues related to her current medications, which include losartan, Sinemet, and trazodone. She is also taking a multivitamin and has tamsulosin on hand for potential kidney stone issues. She has an albuterol inhaler for asthma management but has not needed a refill recently. She is scheduled to see her sumac tanner, Dr. Caldwell, in January. The patient declines the hepatitis B vaccine, stating she does not plan to travel to areas where she might be exposed to the virus. She also reports that her sleep is generally good with the use of trazodone, although her two dogs occasionally disrupt her sleep by waking her up two to three times a night. PAST MEDICAL HISTORY Diagnosis Date C. difficile colitis 06/11/2012 Calculus of kidney 07/26/2006 Essential hypertension 01/10/2009 Impaired Fasting Glucose 07/15/2009 Resolved RLS (restless legs syndrome) Trigger ring finger of right hand 04/07/2016 Unspecified Essential Hypertension 01/10/2009 Urinary calculus, unspecified Renal stones Current Outpatient Medications Medication Sig losartan (COZAAR) 25 mg tablet Take 1 tablet by mouth once daily. carbidopa-levodopa (SINEMET 10-100) 10-100 mg per tablet Take 1 tablet by mouth once daily. traZODone (DESYREL) 50 mg tablet take 1/2 tablet by mouth at bedtime albuterol HFA (PROAIR HFA) 90 mcg/actuation inhaler Inhale 2 Puffs as instructed every 6 hours as needed. ibuprofen (MOTRIN) 200 mg tablet Take 2-3 tablets by mouth twice daily as needed for Pain. MULTIVITAMIN TAB Take by mouth. tamsulosin (FLOMAX) 0.4 mg Take 1 capsule by mouth once daily for 16 days. fluticasone (FLONASE) 50 mcg/actuation nasal spray USE 2 SPRAYS IN EACH NOSTRIL ONCE DAILY. RINSE MOUTH AFTER USE. (Patient not taking: Reported on 12/08/2023) No current facility-administered medications for this visit. Review of Systems Objective BP 110/76 Pulse 79 Temp 36.8 ?C (98.3 ?F) Resp 16 Wt 79.1 kg (174 lb 6.1 oz) LMP 08/29/2010 SpO2 99% BMI 38.41 kg/m? Last 5 Encounter Wt Readings: Date: Wt: 12/08/2023 79.1 kg (174 lb 6.1 oz) 06/15/2023 81 kg (178 lb 9.6 oz) 05/24/2023 83 kg (183 lb) 02/25/2023 81.2 kg (179 lb) 12/09/2022 79.4 kg (175 lb) No waist measurement recorded Estimated body mass index is 38.41 kg/m? as calculated from the following: Height as of 04/07/21: 143.5 cm (4' 8.5). Weight as of this encounter: 79.1 kg (174 lb 6.1 oz). Last 5 Encounter BP Readings: Date: BP: 12/08/2023 110/76 06/15/2023 128/76 05/24/2023 141/84 02/25/2023 146/79 12/09/2022 122/78 Physical Exam Constitutional: Appearance: Normal appearance. She is obese. HENT: Head: Normocephalic. Eyes: Conjunctiva/sclera: Conjunctivae normal. Cardiovascular: Rate and Rhythm: Normal rate and regular rhythm. Heart sounds: Normal heart sounds. Pulmonary: Effort: Pulmonary effort is normal. Breath sounds: Normal breath sounds. Musculoskeletal: Right lower leg: No edema. Left lower leg: No edema. Skin: General: Skin is warm and dry. Neurological: General: No focal deficit present. Mental Status: She is alert and oriented to person, place, and time. Psychiatric: Mood and Affect: Mood normal. Behavior: Behavior normal. Thought Content: Thought content normal. Judgment: Judgment normal. Latest Ref Rng 05/09/2022 12/11/2022 02/25/2023 12/04/2023 WBC 3.70 - 11.00 k/uL 6.41 5.25 7.25 RBC 3.90 - 5.20 m/uL 5.09 4.69 5.19 Hemoglobin 11.5 - 15.5 g/dL 14.4 13.4 14.6 Hematocrit 36.0 - 46.0 % 46.0 42.8 47.4 (H) MCV 80.0 - 100.0 fL 90.4 91.3 91.3 MCH 26.0 - 34.0 pg 28.3 28.6 28.1 MCHC 30.5 - 36.0 g/dL 31.3 31.3 30.8 RDW-CV 11.5 - 15.0 % 13.6 13.8 13.5 Platelet Count 150 - 400 k/uL 353 (more content not included)... Normal [facility] CBC W Auto Differential pane l (Bld)on 12-04-2023 Basophils (Bld) [#/Vol] 0.05 10*3/uL Normal <0.11 [facility] Comment on above: Order Comment: Speci men Type: BLOOD SPECIMEN Ordering Facility: [facility] Address: [address] [place] [address] Performed By: #### 5 7021-8 #### [facility] CLIA [id number] [address] [place] [address] [place] Basophils/100 WBC (Bld) 0.7 % Normal C [facility] Comment on above: Order Comment: Speci men Type: BLOOD SPECIMEN Ordering Facility: [facility] Address: [address] [place] [address] Performed By: #### 5 7021-8 #### [facility] CLIA [id number] [address] [place] [address] [place] Differential cell count method Nom (Bld) Auto Normal [facility] Comment on above: Order Comment: Speci men Type: BLOOD SPECIMEN Ordering Facility: [facility] Address: [address] [place] [address] Performed By: #### 5 7021-8 #### [facility] CLIA [id number] [address] [place] [address] [place] Eosinophils (Bld) [#/Vol] 0.11 10*3/uL Normal <0.46 [facility] Comment on above: Order Comment: Speci men Type: BLOOD SPECIMEN Ordering Facility: [facility] Address: [address] [place] [address] Performed By: #### 5 7021-8 #### [facility] CLIA [id number] [address] [place] [address] [place] Eosinophils/100 WBC (Bld) 1.5 % Normal [facility] Comment on above: Order Comment: Speci men Type: BLOOD SPECIMEN Ordering Facility: [facility] Address: [address] [place] [address] Performed By: #### 5 7021-8 #### [facility] CLIA [id number] [address] [place] [address] [place] Erythrocyte distribution width (RBC) [Ratio] 13.5 % Normal 11.5-15.0 [facility] Comment on above: Order Comment: Speci men Type: BLOOD SPECIMEN Ordering Facility: [facility] Address: [address] [place] [address] Performed By: #### 5 7021-8 #### [facility] CLIA [id number] [address] [place] [address] [place] Hematocrit (Bld) [Volume fraction] 47.4 % High 36.0-46.0 [facility] Comment on above: Order Comment: Speci men Type: BLOOD SPECIMEN Ordering Facility: [facility] Address: [address] [place] [address] Performed By: #### 5 7021-8 #### [facility] CLIA [id number] [address] [place] [address] [place] Hemoglobin (Bld) [Mass/Vol] 14.6 g/dL Normal 11.5-15.5 [facility] Comment on above: Order Comment: Speci men Type: BLOOD SPECIMEN Ordering Facility: [facility] Address: [address] [place] [address] Performed By: #### 5 7021-8 #### [facility] CLIA [id number] [address] [place] [address] [place] Immature granulocytes (Bld) [#/Vol] 10*3/uL Normal <0.10 [facility] Comment on above: Order Comment: Speci men Type: BLOOD SPECIMEN Ordering Facility: [facility] Address: [address] [place] [address] Performed By: #### 5 7021-8 #### [facility] CLIA [id number] [address] [place] [address] [place] Immature granulocytes/100 WBC (Bld) 0.3 % Normal [facility] Comment on above: Order Comment: Speci men Type: BLOOD SPECIMEN Ordering Facility: [facility] Address: [address] [place] [address] Performed By: #### 5 7021-8 #### [facility] CLIA [id number] [address] [place] [address] [place] Lymphocytes (Bld) [#/Vol] 1.80 10*3/uL Normal 1.00-4.00 [facility] Comment on above: Order Comment: Speci men Type: BLOOD SPECIMEN Ordering Facility: [facility] Address: [address] [place] [address] Performed By: #### 5 7021-8 #### [facility] CLIA [id number] [address] [place] [address] [place] Lymphocytes/100 WBC (Bld) 24.8 % Normal [facility] Comment on above: Order Comment: Speci men Type: BLOOD SPECIMEN Ordering Facility: [facility] Address: [address] [place] [address] Performed By: #### 5 7021-8 #### [facility] CLIA [id number] [address] [place] [address] [place] MCH (RBC) [Entitic mass] 28.1 pg Normal 26.0-34.0 [facility] Comment on above: Order Comment: Speci men Type: BLOOD SPECIMEN Ordering Facility: [facility] Address: [address] [place] [address] Performed By: #### 5 7021-8 #### [facility] CLIA [id number] [address] [place] [address] [place] MCHC (RBC) [Mass/Vol] 30.8 g/dL Normal 30.5-36.0 [facility] Comment on above: Order Comment: Speci men Type: BLOOD SPECIMEN Ordering Facility: [facility] Address: [address] [place] [address] Performed By: #### 5 7021-8 #### [facility] CLIA [id number] [address] [place] [address] [place] MCV (RBC) [Entitic vol] 91.3 fL Normal 80.0-100.0 [facility] Comment on above: Order Comment: Speci men Type: BLOOD SPECIMEN Ordering Facility: [facility] Address: [address] [place] [address] Performed By: #### 5 7021-8 #### [facility] CLIA [id number] [address] [place] [address] [place] Monocytes (Bld) [#/Vol] 0.51 10*3/uL Normal <0.87 [facility] Comment on above: Order Comment: Speci men Type: BLOOD SPECIMEN Ordering Facility: [facility] Address: [address] [place] [address] Performed By: #### 5 7021-8 #### [facility] CLIA [id number] [address] [place] [address] [place] Monocytes/100 WBC (Bld) 7.0 % Normal [facility] Comment on above: Order Comment: Speci men Type: BLOOD SPECIMEN Ordering Facility: [facility] Address: [address] [place] [address] Performed By: #### 5 7021-8 #### [facility] CLIA [id number] [address] [place] [address] [place] Neutrophils (Bld) [#/Vol] 4.76 10*3/uL Normal 1.45-7.50 [facility] Comment on above: Order Comment: Speci men Type: BLOOD SPECIMEN Ordering Facility: [facility] Address: [address] [place] [address] Performed By: #### 5 7021-8 #### [facility] CLIA [id number] [address] [place] [address] [place] Neutrophils/100 WBC (Bld) 65.7 % Normal [facility] Comment on above: Order Comment: Speci men Type: BLOOD SPECIMEN Ordering Facility: [facility] Address: [address] [place] [address] Performed By: #### 5 7021-8 #### [facility] CLIA [id number] [address] [place] [address] [place] Nucleated RBC (Bld) [#/Vol] 10*3/uL Normal <0.01 [facility] Comment on above: Order Comment: Speci men Type: BLOOD SPECIMEN Ordering Facility: [facility] Address: [address] [place] [address] Performed By: #### 5 7021-8 #### [facility] CLIA [id number] [address] [place] [address] [place] Nucleated RBC/100 WBC (Bld) [Ratio] 0.0 /100 WBC Normal [facility] Comment on above: Order Comment: Speci men Type: BLOOD SPECIMEN Ordering Facility: [facility] Address: [address] [place] [address] Performed By: #### 5 7021-8 #### [facility] CLIA [id number] [address] [place] [address] [place] Platelet mean volume (Bld) [Entitic vol] 10.8 fL Normal 9.0-12.7 [facility] Comment on above: Order Comment: Speci men Type: BLOOD SPECIMEN Ordering Facility: [facility] Address: [address] [place] [address] Performed By: #### 5 7021-8 #### [facility] CLIA [id number] [address] [place] [address] [place] Platelets (Bld) [#/Vol] 372 10*3/uL Normal 150-400 [facility] Comment on above: Order Comment: Speci men Type: BLOOD SPECIMEN Ordering Facility: [facility] Address: [address] [place] [address] Performed By: #### 5 7021-8 #### [facility] CLIA [id number] [address] [place] [address] [place] RBC (Bld) [#/Vol] 5.19 10*6/uL Normal 3.90-5.20 [facility] Comment on above: Order Comment: Speci men Type: BLOOD SPECIMEN Ordering Facility: [facility] Address: [address] [place] [address] Performed By: #### 5 7021-8 #### [facility] CLIA [id number] [address] [place] [address] [place] WBC (Bld) [#/Vol] 7.25 10*3/uL Normal 3.70-11.00 [facility] Comment on above: Order Comment: Speci men Type: BLOOD SPECIMEN Ordering Facility: [facility] Address: [address] [place] [address] Performed By: #### 5 7021-8 #### [facility] CLIA [id number] [address] [place] [address] [place] Comprehensive metabolic 2000 panelon 12-04-2023 Albumin [Mass/Vol] 4.3 g/dL Normal 3.9-4.[address] [facility] Comment on above: Order Comment: Speci men Type: BLOOD SPECIMEN Ordering Facility: [facility] Address: [address] [place] [address] Performed By: #### 2 4323-8, 3016-3 #### [facility] CLIA [id number] [address] [id number] [address] [place] ALP [Catalytic activity/Vol] 58 U/L Normal 34-123 [facility] Comment on above: Order Comment: Speci men Type: BLOOD SPECIMEN Ordering Facility: [facility] Address: [address] [place] [address] Performed By: #### 2 4323-8, 6-3 #### [facility] CLIA [id number] [address] [place] [address] [place] ALT [Catalytic activity/Vol] 23 U/L Normal 7-38 [facility] Comment on above: Order Comment: Speci men Type: BLOOD SPECIMEN Ordering Facility: [facility] Address: [address] [place] [address] Performed By: #### 2 4323-8, 3015-3 #### [facility] CLIA [id number] [address] [place] [address] [place] Anion gap [Moles/Vol] 12 mmol/L Normal 8-15 [facility] Comment on above: Order Comment: Speci men Type: BLOOD SPECIMEN Ordering Facility: [facility] Address: [address] [place] [address] Performed By: #### 2 4323-8, 3 #### [facility] CLIA [id number] [address] [place] [address] [place] AST [Catalytic activity/Vol] 22 U/L Normal 13-35 [facility] Comment on above: Order Comment: Speci men Type: BLOOD SPECIMEN Ordering Facility: [facility] Address: [address] [place] [address] Performed By: #### 2 4323-8, 6-3 #### [facility] CLIA [id number] [address] [place] [address] [place] Bilirubin [Mass/Vol] 0.5 mg/dL Normal 0.2-1.3 [facility] Comment on above: Order Comment: Speci men Type: BLOOD SPECIMEN Ordering Facility: [facility] Address: [address] [place] [address] Performed By: #### 2 4323-8, 3016-3 #### [facility] CLIA [id number] [address] [place] [address] [place] Calcium [Mass/Vol] 10.2 mg/dL Normal 8.5-10.[address] [facility] Comment on above: Order Comment: Speci men Type: BLOOD SPECIMEN Ordering Facility: [facility] Address: [address] [place] [address] Performed By: #### 2 4323-8, 6-3 #### [facility] CLIA [id number] [address] [place] [address] [place] Chloride [Moles/Vol] 103 mmol/L Normal 98-107 [facility] Comment on above: Order Comment: Speci men Type: BLOOD SPECIMEN Ordering Facility: [facility] Address: [address] [place] [address] Performed By: #### 2 4323-8, 6-3 #### [facility] CLIA [id number] [address] [place] [address] [place] CO2 [Moles/Vol] 26 mmol/L Normal 22-30 [facility] Comment on above: Order Comment: Speci men Type: BLOOD SPECIMEN Ordering Facility: [facility] Address: [address] [place] [address] Performed By: #### 2 4323-8, 3016-3 #### [facility] CLIA [id number] [address] [place] [address] [place] Creatinine [Mass/Vol] 1.03 mg/dL High 0.58-0.96 [facility] Comment on above: Order Comment: Speci men Type: BLOOD SPECIMEN Ordering Facility: [facility] Address: [address] [place] [address] Performed By: #### 2 4323-8, 6-3 #### [facility] CLIA [id number] [address] [place] [address] [place] Creatinine and Glomerular filtration rate.predicted panel (S/P/Bld) 63 mL/min/1.73m??? Normal >=60 [facility] Comment on above: Order Comment: Zhanna parrish Type: BLOOD SPECIMEN Ordering Facility: [facility] Address: [address] [place] [address] Result Comment: Erin mated Glomerular Filtration Rate (eGFR) is calculated using the 2020 CKD-EPI creatinine equation. This equation utilizes serum creatinine, sex, and age as parameters. The creatinine assay has traceable calibration to isotope dilution-mass spectrometry. Refer to KDIGO guidelines for clinical interpretation. In patients with unstable renal function, e.g. those with acute kidney injury, the eGFR may not accurately reflect actual GFR. Performed By: #### 2 4323-8, 3016-3 #### [facility] IA [id number] [address] [place] [address] [place] Glucose [Mass/Vol] 94 mg/dL Normal 74-[address] [facility] Comment on above: Order Comment: Zhanna parrish Type: BLOOD SPECIMEN Ordering Facility: [facility] Address: [address] [place] [address] Result Comment: The [place] [employer] (ADA) provides guidance for cutoff values for fasting glucose and random glucose. The ADA defines fasting as no caloric intake for at least 8 hours. Fasting plasma glucose results between 100 to 125 mg/dL indicate increased risk for diabetes (prediabetes). Fasting plasma glucose results greater than or equal to 126 mg/dL meet the criteria for diagnosis of diabetes. In the absence of unequivocal hyperglycemia, results should be confirmed by repeat testing. In a patient with classic symptoms of hyperglycemia or hyperglycemic crisis, random plasma glucose results greater than or equal to 200 mg/dL meet the criteria for diagnosis of diabetes. Reference: Standards of Medical Care in Diabetes 2016, [place] [employer]. Diabetes Care. 2016.39(Suppl 1). Performed By: #### 2 4323-8, 3016-3 #### [facility] CLIA [id number] [address] [place] [address] [place] Potassium [Moles/Vol] 4.4 mmol/L Normal 3.7-5.1 [facility] Comment on above: Order Comment: Speci men Type: BLOOD SPECIMEN Ordering Facility: [facility] Address: [address] [place] [address] Performed By: #### 2 4323-8, 3016-3 #### [facility] CLIA [id number] [address] [place] [address] [place] Protein [Mass/Vol] 7.2 g/dL Normal 6.3-8.[address] [facility] Comment on above: Order Comment: Speci men Type: BLOOD SPECIMEN Ordering Facility: [facility] Address: [address] [place] [address] Performed By: #### 2 4323-8, 3016-3 #### [facility] CLIA [id number] [address] [place] [address] [place] Sodium [Moles/Vol] 141 mmol/L Normal 136-[address] [facility] Comment on above: Order Comment: Speci men Type: BLOOD SPECIMEN Ordering Facility: [facility] Address: [address] [place] [address] Performed By: #### 2 4323-8, 3016-3 #### [facility] CLIA [id number] [address] [place] [address] [place] Urea nitrogen [Mass/Vol] 22 mg/dL High 7-21 [facility] Comment on above: Order Comment: Speci men Type: BLOOD SPECIMEN Ordering Facility: [facility] Address: [address] [place] [address] Performed By: #### 2 4323-8, 3016-3 #### [facility] CLIA [id number] [address] [place] [address] [place] TSH SerPl-aCncon 12-04-2023 TSH Qn 1.310 m[IU]/L Normal 0.270-4.200 [facility] Comment on above: Order Comment: Speci men Type: BLOOD SPECIMEN Ordering Facility: [facility] Address: [address] [place] [address] Performed By: #### 2 4323-8, 3016-3 #### [facility] CLIA [id number] [address] [facility] [place] [id number] [id number] [place] Angiotensin Convert Enzymeon 10-20-2023 ANGIOT-CONV.ENZ 53 U/L Normal 14-82 [facility] Comment on above: Result Comment: Perf ormed at: - [facility] [address] [id number] [employer] Assistant: John Ochoa PhD, Phone: [phone] Performed By: #### L 100.0100, L3100.6900, L101.9900 #### [facility] [address] [place], [address] CBC W/Diff, Automatedon 09-23 Absolute Lymph 1.93 X10 3/uL Normal 0.83-4.51 [facility] Comment on above: Order Comment: FAX 3 [phone] Performed By: #### L 100.0100, L3100.6900, L101.9900 #### [facility] [address] [place], [address] Absolute Neut 4.1 X10 3/uL Normal 2.0-7.7 [facility] Comment on above: Order Comment: FAX 3 [phone] Performed By: #### L 100.0100, L3100.6900, L101.9900 #### [facility] [address] [place], [address] Basophils/100 WBC (Bld) 0.9 % Normal 0-1 [facility] Comment on above: Order Comment: FAX 3 [phone] Performed By: #### L 100.0100, L3100.6900, L101.9900 #### [facility] [address] [place], [address] Eosinophils/100 WBC (Bld) 2.8 % Normal 0-5 [facility] Comment on above: Order Comment: FAX Performed By: #### L 100.0100, L3100.6900, L101.9900 #### [facility] [address] [place], [address] Erythrocyte distribution width (RBC) [Ratio] 13.9 % Normal 11.6-14.6 [facility] Comment on above: Order Comment: FAX Performed By: #### L 100.0100, L3100.6900, L101.9900 #### [facility] [address] [place], [address] Hematocrit (Bld) [Volume fraction] 44.6 % Normal 37-47 [facility] Comment on above: Order Comment: FAX Performed By: #### L 100.0100, L3100.6900, L101.9900 #### [facility] [address] [place], [address] Hemoglobin (Bld) [Mass/Vol] 13.9 g/dL Normal 12.0-15.0 [facility] Comment on above: Order Comment: FAX Performed By: #### L 100.0100, L3100.6900, L101.9900 #### [facility] [address] [place], [address] IG% 0.300 Normal 0.0-0.9 [facility] Comment on above: Order Comment: FAX Result Comment: IG% - Immature Granulocytes (promyelocytes, myelocytes and metamyelocytes) > 1% indicates that a LEFT SHIFT is Present. Performed By: #### L 100.0100, L3100.6900, L101.9900 #### [facility] [address] [place], [address] Lymphocytes/100 WBC (Bld) 27.4 % Normal 19-41 [facility] Comment on above: Order Comment: FAX 3 Performed By: #### L 100.0100, L3100.6900, L101.9900 #### [facility] [address] [place], [address] MCH (RBC) [Entitic mass] 28.1 pg Normal 27.0-32.0 [facility] Comment on above: Order Comment: FAX 3 Performed By: #### L 100.0100, L3100.6900, L101.9900 #### [facility] [address] [place], [address] MCHC (RBC) [Mass/Vol] 31.2 g/dL Low 32-36 [facility] Comment on above: Order Comment: FAX 3 Performed By: #### L 100.0100, L3100.6900, L101.9900 #### [facility] [address] [place], [address] MCV (RBC) [Entitic vol] 90.3 fL Normal 81-99 [facility] Comment on above: Order Comment: FAX 3 Performed By: #### L 100.0100, L3100.6900, L101.9900 #### [facility] [address] [place], [address] Monocytes/100 WBC (Bld) 10.4 % High 0-10 [facility] Comment on above: Order Comment: FAX 3 Performed By: #### L 100.0100, L3100.6900, L101.9900 #### [facility] [address] [place], [address] Neutrophils/100 WBC (Bld) 58.2 % Normal 47-70 [facility] Comment on above: Order Comment: FAX 3 Performed By: #### L 100.0100, L3100.6900, L101.9900 #### [facility] [address] [place], [address] Nucleated RBC (Bld) [#/Vol] 0 10*3/uL Normal 0-5 [facility] Comment on above: Order Comment: FAX 3 Performed By: #### L 100.0100, L3100.6900, L101.9900 #### [facility] [address] [place], [address] Platelet mean volume (Bld) [Entitic vol] 10.5 fL Normal 6.2-12.0 [facility] Comment on above: Order Comment: FAX 3 Performed By: #### L 100.0100, L3100.6900, L101.9900 #### [facility] [address] [place], [address] Platelets (Bld) [#/Vol] 340 10*3/uL Normal 150-450 [facility] Comment on above: Order Comment: FAX Performed By: #### L 100.0100, L3100.6900, L101.9900 #### [facility] [address] [place], [address] RBC (Bld) [#/Vol] 4.94 10*6/uL Normal 4.2-5.4 [facility] Comment on above: Order Comment: FAX Performed By: #### L 100.0100, L3100.6900, L101.9900 #### [facility] [address] [place], [address] RDW SD 45.9 fl High 35.1-43.9 [facility] Comment on above: Order Comment: FAX Performed By: #### L 100.0100, L3100.6900, L101.9900 #### [facility] [address] [place], [place], [address] WBC (Bld) [#/Vol] 7.1 10*3/uL Normal 4.4-11.0 [facility] Comment on above: Order Comment: FAX [phone] Performed By: #### L 100.0100, L3100.6900, L101.9900 #### [facility] [address] [place], [place], [id number] Erythrocyte Sed Rateon 10-18 SED RATE 7 mm/hr Normal 0-30 [facility] Comment on above: Order Comment: FAX 3 [phone] Performed By: #### L 100.0100, L3100.6900, L101.9900 #### [facility] [address] [place], [address] Absolute lymphocyte countOrd ered By: Smith Tripp on 05-22-2023 Lymphocytes Auto (Unsp spec) [#/Vol] 0.87 10*3/uL 0.83-4.51 [facility] Automated lymphocyte count a s percentage of total leukocytesOrdered By: Smith Tripp on 05-22-2023 Lymphocytes/100 WBC Auto (Unsp spec) 7.4 % 19-41 [facility] Basophil percentageOrdered B y: Smith Tripp on 05-22-2023 Basophil percentage 0 SEEN /hpf 0-5 [facility] Basophils/100 WBC (Bld) 0.3 % 0-1 [facility] Chloride [Moles/Vol] 108 mmol/L 98-107 [facility] Eosinophils/100 WBC (Bld) 0.0 % 0-5 [facility] Glucose [Mass/Vol] 136 mg/dL 74-106 [facility] Comment on above: Fasting Glucose resu lt greater than or equal to 126 mg/dL suggests DIABETES MELLITUS per A.D.A. criteria. Hemoglobin (Bld) [Mass/Vol] 13.3 g/dL 12.0-15.0 [facility] Monocytes/100 WBC (Bld) 3.1 % 0-10 [facility] Neutrophils (Bld) [#/Vol] 10.4 10*3/uL 2.0-7.7 [facility] Neutrophils/100 WBC (Bld) 88.8 % 47-70 [facility] Potassium [Moles/Vol] 3.6 mmol/L 3.5-5.1 [facility] Sodium [Moles/Vol] 141 mmol/L 136-145 [place] [facility] WBC (Bld) [#/Vol] 11.7 10*3/uL 4.4-11.[address] [facility] Bilirubin Test strip Ql (U)O rdered By: Smith Tripp on 05-22-2023 Bilirubin Ql (U) Negative Negative [facility] Determination of erythrocyte mean corpuscular volume (MCV)Ordered By: Smith Tripp on 05-22-2023 MCV (RBC) [Entitic vol] 89.1 fL 81-99 [facility] Erythrocyte distribution wid th ratioOrdered By: Smith Tripp on 05-22-2023 Erythrocyte distribution width (RBC) [Ratio] 13.4 % 11.6-14.6 [facility] Erythrocyte distribution wid th standard deviationOrdered By: Smith Tripp on 05-22-2023 Erythrocyte distribution width (RBC) [Entitic vol] 44.0 fL 35.1-43.9 [facility] Hematocrit Auto (Bld) [Volum e fraction]Ordered By: Smith Tripp on 05-22-2023 Hematocrit (Bld) [Volume fraction] 42.4 % 37-47 [facility] Immature granulocytes/100 WB C Auto (Bld)Ordered By: Smith Tripp on 05-22-2023 Immature granulocytes/100 WBC (Bld) 0.400 % 0.0-0.9 [facility] Comment on above: IG% - Immature Granu locytes (promyelocytes, myelocytes and metamyelocytes) > 1% indicates that a LEFT SHIFT is Present. Ketones Test strip Ql (U)Ord ered By: Smith Tripp on 05-22-2023 Ketones Ql (U) Negative Negative [facility] - Chemistry and C hemistry - challengeOrdered By: Smith Tripp on 05-22-2023 CO2 [Moles/Vol] 26.0 mmol/L 21.0-32.0 [facility] Urea nitrogen/Creatinine [Mass ratio] 17.8 mg/mg 10-20 [facility] - Hematology and Cell countsOrdered By: Smith Tripp on 05-22-2023 MCH (RBC) [Entitic mass] 27.9 pg 27.0-32.0 [facility] MCHC (RBC) [Mass/Vol] 31.4 g/dL 32-36 [facility] Nucleated RBC/100 WBC (Bld) [Ratio] 0 % 0-5 [facility] Platelet mean volume (Bld) [Entitic vol] 10.0 fL 6.2-12.0 [facility] Platelets (Bld) [#/Vol] 316 10*3/uL 150-450 [facility] Mucus LM Ql (Urine sed)Order ed By: Smith Tripp on 05-22-2023 Mucus Ql (Urine sed) 0 SEEN /hpf [facility] Nitrite Test strip Ql (U)Ord ered By: Smith Tripp on 05-22-2023 Nitrite Ql (U) Negative Negative [facility] No Panel InformationOrdered By: Smith Tripp on 05-22-2023 Urine RBC 10-25 SEEN /hpf 0-5 [facility] Estimated Creatinine Clearance Calc 54.23 ml/min [facility] Estimated GFR (MDRD) Amer 68 mL/min >60 [facility] Comment on above: GFR Calc Estimated GFR (MDRD) Non-Af Amer 56 mL/min >60 [facility] Comment on above: Non- GFR Calc Protein Test strip Ql (U)Ord ered By: Smith Tripp on 05-22-2023 Protein Ql (U) Negative Negative [facility] RBC Auto (Bld) [#/Vol]Ordere d By: Smith Tripp on 05-22-2023 RBC (Bld) [#/Vol] 4.76 10*6/uL 4.2-5.4 [facility] Serum or plasma calcium noe urement (mass/volume)Ordered By: Smith Tripp on 05-22-2023 Calcium [Mass/Vol] 9.2 mg/dL 8.5-10.1 [facility] Serum or plasma creatinine m easurement (mass/volume)Ordered By: Smith Tripp on 05-22-2023 Creatinine [Mass/Vol] 1.07 mg/dL 0.55-1.02 [facility] Comment on above: The validity of the calculated GFR & GFRAA in patients over 70 years has not been determined. Clinical correlation is essential. Serum or plasma urea nitroge n measurement (mass/volume)Ordered By: Smith Tripp on 05-22-2023 Urea nitrogen [Mass/Vol] 19 mg/dL 7-18 [facility] Squamous epithelial cells de tection in urine sediment by light microscopyOrdered By: Smith Tripp on 05-22-2023 Epithelial cells.squamous LM Ql (Urine sed) 10-25 SEEN /hpf 5-10 [facility] Thin prep Papanicolaou smear with manual screeningOrdered By: Smith Tripp on 05-22-2023 Thin prep Papanicolaou smear with manual screening 7 5-15 [facility] Urine blood detectionOrdered By: Smith Tripp on 05-22-2023 RBC Ql (U) 50 /ul Negative [facility] Urine clarityOrdered By: Danilo Tripp on 05-22-2023 Clarity (U) Clear Clear [facility] Urine color determinationOrd ered By: Smith Tripp on 05-22-2023 Color (U) Yellow Yellow [facility] Urine glucose detectionOrder ed By: Smith Tripp on 05-22-2023 Glucose Ql (U) Normal mg/dl Normal [facility] Urine leukocyte esterase det ection by dipstickOrdered By: Smith Tripp on 05-22-2023 Leukocyte esterase Test strip Ql (U) Negative Negative [facility] Urine pHOrdered By: Smith spain on 05-22-2023 pH (U) 7.0 [pH] 5.0 - 8.0 [facility] Urine sediment bacteria coun t by microscopy (number/high power field)Ordered By: Smith Tripp on 05-22-2023 Bacteria LM.HPF (Urine sed) [#/Area] 0 /[HPF] None Seen [facility] Urine specific gravity measu rementOrdered By: Smith Tripp on 05-22-2023 Specific gravity (U) [Rel density] 1.010 1.002-1.030 [facility] Urine urobilinogen measureme ntOrdered By: Smith Tripp on 05-22-2023 Urobilinogen Ql (U) Normal mg/dl Normal [facility] CBC panel Auto (Bld)on 12-11 Erythrocyte distribution width (RBC) [Ratio] 13.8 % 11.5 - 15.0 % [facility] Hematocrit (Bld) [Volume fraction] 42.8 % 36.0 - 46.0 % [facility] Hemoglobin (Bld) [Mass/Vol] 13.4 g/dL 11.5 - 15.5 g/dL [facility] MCH (RBC) [Entitic mass] 28.6 pg 26.0 - 34.0 pg [facility] MCHC (RBC) [Mass/Vol] 31.3 g/dL 30.5 - 36.0 g/dL [facility] MCV (RBC) [Entitic vol] 91.3 fL 80.0 - 100.0 fL [facility] Nucleated RBC (Bld) [#/Vol] <0.01 k/uL [facility] Platelet mean volume (Bld) [Entitic vol] 10.5 fL 9.0 - 12.7 fL [facility] Platelets (Bld) [#/Vol] 316 10*3/uL 150 - 400 k/uL [facility] RBC (Bld) [#/Vol] 4.69 10*6/uL 3.90 - 5.2 0 m/uL [facility] WBC (Bld) [#/Vol] 5.25 10*3/uL 3.70 - 11.00 k/uL [facility] Comprehensive metabolic 2000 panelon 12-11-2022 Albumin [Mass/Vol] 4.2 g/dL 3.9 - 4.9 g/dL [facility] ALP [Catalytic activity/Vol] 53 U/L 34 - 123 U/L [facility] ALT [Catalytic activity/Vol] 23 U/L 7 - 38 U/L [facility] Anion gap [Moles/Vol] 11 mmol/L 9 - 18 mmol/L [facility] AST [Catalytic activity/Vol] 18 U/L 13 - 35 U/L [facility] Bilirubin [Mass/Vol] 0.6 mg/dL 0.2 - 1 .3 mg/dL [facility] Calcium [Mass/Vol] 9.7 mg/dL 8.5 - 10. 2 mg/dL [facility] Chloride [Moles/Vol] 104 mmol/L 97 - 10 5 mmol/L [facility] CO2 [Moles/Vol] 25 mmol/L 22 - 30 mmol/L [facility] Creatinine [Mass/Vol] 0.76 mg/dL 0.58 - 0.96 mg/dL [facility] Estimated Glomerular Filtration Rate 91 mL/min/1.73m >=60 mL/min/1.73 m [facility] Glucose [Mass/Vol] 99 mg/dL 74 - 99 mg/dL [facility] Potassium [Moles/Vol] 4.5 mmol/L 3.7 - 5.1 mmol/L [facility] Protein [Mass/Vol] 6.4 g/dL 6.3 - 8.0 g/dL [facility] Sodium [Moles/Vol] 140 mmol/L 136 - 144 mmol/L [facility] Urea nitrogen [Mass/Vol] 17 mg/dL 7 - 21 mg/dL [facility] HbA1c (Bld)on 12-11-2022 Average glucose Estimated from glycated hemoglobin (Bld) [Mass/Vol] 120 mg/dL [facility] HbA1c (Bld) [Mass fraction] 5.8 % High 4.3 - 5.6 % [facility] PTH INTACT BLDon 12-11-2022 Parathyrin.intact [Mass/Vol] 29 pg/mL 15 - 65 pg/mL [facility] STREP A MOLECULAR (POC)on Procedural Control Valid [facility] Strep A (POCT) Negative Negative [facility] XR Chest PA and Lateralon IMPRESSION: No acute radiographic abnormality. Manager Adult: PSCB Transcribe Date/Time: Jan 29 2022 11:09A Dictated by : SHAN DEVLIN MD This examination was interpreted and the report reviewed and electronically signed by: SHAN DEVLIN MD on Jan 29 2022 11:10AM [facility] DIVISION OF RADIOLOGY * * *Final Report* * * DATE OF EXAM: Jan 28 2022 6:01PM WOX [id number] - XR CHEST 2V FRONTAL/LAT / PROCEDURE REASON: Bronchitis with bronchospasm * * * * Physician Interpretation * * * * EXAMINATION: CHEST RADIOGRAPH (2 VIEW FRONTAL & LATERAL) CLINICAL HISTORY: Bronchitis with bronchospasm MQ: XC2_6 EXAM DATE/TIME: 01/28/2022 6:01 PM COMPARISON: Chest x-ray on 03/26/2019 RESULT: Lines, tubes, and devices: None. Lungs and pleura: Small linear opacity noted in the left lower lung. No consolidation. No lung mass. No pleural effusion. No pneumothorax. Cardiomediastinal silhouette: Normal cardiomediastinal silhouette. Bones and soft tissues: There are degenerative changes in the spine. DIVISION OF RADIOLOGY Provider, [facility] - 01/29/2022 * * *Final Report* * * DATE OF EXAM: Jan 28 2022 6:01PM WOX [id number] - XR CHEST 2V FRONTAL/LAT / PROCEDURE REASON: Bronchitis with bronchospasm * * * * Physician Interpretation * * * * EXAMINATION: CHEST RADIOGRAPH (2 VIEW FRONTAL & LATERAL) CLINICAL HISTORY: Bronchitis with bronchospasm MQ: XC2_6 EXAM DATE/TIME: 01/28/2022 6:01 PM COMPARISON: Chest x-ray on 03/26/2019 RESULT: Lines, tubes, and devices: None. Lungs and pleura: Small linear opacity noted in the left lower lung. No consolidation. No lung mass. No pleural effusion. No pneumothorax. Cardiomediastinal silhouette: Normal cardiomediastinal silhouette. Bones and soft tissues: There are degenerative changes in the spine. IMPRESSION IMPRESSION: No acute radiographic abnormality. Manager Adult: PSCB Transcribe Date/Time: Jan 29 2022 11:09A Dictated by : SHAN DEVLIN MD This examination was interpreted and the report reviewed and electronically signed by: SHAN DEVLIN MD on Jan 29 2022 11:10AM EST [facility] XR Chest PA and LateralOrder ed By: [facility] Provider on 01-29-2022 [facility] XR CHEST 2V FRONTAL/LATon [facility] XR Chest PA and Lateralon Radiology Study observation (narrative) [facility] Basophil percentageon 2021 WBC (Bld) [#/Vol] 8.1 10*3/uL 4.4-11.0 [facility] Work Phone: Blood erythrocytes count (nu mber/volume)on 07-17-2021 RBC (Bld) [#/Vol] 5.10 10*6/uL 4.2-5.4 [facility] Work Phone: Blood hemoglobin measurement (mass/volume)on 07-17-2021 Hemoglobin (Bld) [Mass/Vol] 14.3 g/dL 12.0-15.0 [facility] Work Phone: Blood platelet mean volumeon 07-17-2021 Platelet mean volume (Bld) [Entitic vol] 10.4 fL 6.2-12.0 [facility] Work Phone: Determination of erythrocyte mean corpuscular volume (MCV)on 07-17-2021 MCV (RBC) [Entitic vol] 90.4 fL 81-99 [facility] Work Phone: Hematocrit Auto (Bld) [Volum e fraction]on 07-17-2021 Hematocrit (Bld) [Volume fraction] 46.1 % 37-47 [facility] Work Phone: Laboratory - Hematology and Cell countson 07-17-2021 Erythrocyte distribution width (RBC) [Entitic vol] 45.1 fL 35.1-43.9 [facility] Work Phone: Erythrocyte distribution width (RBC) [Ratio] 13.4 % 11.6-14.6 [facility] Work Phone: MCH (RBC) [Entitic mass] 28.0 pg 27.0-32.0 [facility] Work Phone: MCHC Auto (RBC) [Mass/Vol]on 07-17-2021 MCHC (RBC) [Mass/Vol] 31.0 g/dL 32-36 [facility] Work Phone: [phone] Platelets bldon 07-17-2021 Platelets (Bld) [#/Vol] 345 10*3/uL 150-450 [facility] Work Phone: Serum or plasma ferritin darlin surement (mass/volume)on 07-17-2021 Ferritin [Mass/Vol] 127 ng/mL [facility] Work Phone: COLONOSCOPY SCREENINGon 03-25 [facility] Lab Report: Miscellaneous La b Procedureon 02-28-2017 GE use only - for Link[employer] import when terms are not otherwise specified . Invalid Interpretation Code [facility] Vital Signs Date Time Vital Sign Value Performing Clinician Facility 09-19-2024 07:11-0400 Body height 142.[address] Agnieszka Bruce MD Work Phone: [facility] 09-19-2024 07:11-0400 Body mass index (BMI) [Ratio] 38.3 kg/m2 Dr. Agnieszka Bruce MD Work Phone: [phone] [place] [address] 09-19-2024 07:11-0400 Body temperature 97.3 [degF] Dr. Agnieszka Bruce MD Work Phone: [phone] [place] [address] 09-19-2024 07:11-0400 Body weight 77.[address] Agnieszka Bruce MD Work Phone: [facility] 09-19-2024 07:11-0400 Diastolic blood pressure 84 mm[Hg] Dr. Agnieszka Bruce MD Work Phone: [phone] [place] [address] 09-19-2024 07:11-0400 Heart rate 77 /min Dr. Agnieszka Bruce MD Work Phone: [facility] 09-19-2024 07:11-0400 Respiratory rate 20 /min Dr. Agnieszka Bruce MD Work Phone: [facility] 09-19-2024 07:11-0400 SaO2% (BldA) [Mass fraction] 99 % Dr. Agnieszka Bruce MD Work Phone: [facility] 09-19-2024 07:11-0400 Systolic blood pressure 138 mm[Hg] Dr. Agnieszka Bruce MD Work Phone: [facility] 06-14-2024 08:49-0400 Body mass index (BMI) [Ratio] 38.21 kg/m2 Macey Daron MACHINIST SET UP.AGILE COACH Work Phone: [facility] 06-14-2024 08:49-0400 Body weight 78.7 kg Macey Daron MACHINIST SET UP.AGILE COACH Work Phone: [facility] 06-14-2024 08:49-0400 Diastolic blood pressure 72 mm[Hg] Macey Daron MACHINIST SET UP.AGILE COACH Work Phone: [facility] 06-14-2024 08:49-0400 Heart rate 87 /min Macey Daron MACHINIST SET UP.AGILE COACH Work Phone: [facility] 06-14-2024 08:49-0400 SaO2% (BldA) [Mass fraction] 97 % Macey Daron MACHINIST SET UP.AGILE COACH Work Phone: [facility] 06-14-2024 08:49-0400 Systolic blood pressure 128 mm[Hg] Macey Daron MACHINIST SET UP.AGILE COACH Work Phone: [facility] 02-27-2024 12:08-0500 Body mass index (BMI) [Ratio] 37.92 kg/m2 Rafaela Ahn-Ziyad MACHINIST SET UP.AGILE COACH Work Phone: [facility] 02-27-2024 12:08-0500 Body temperature 98.71 [degF] Rafaela Rushler-Ziyad MACHINIST SET UP.AGILE COACH Work Phone: [facility] 02-27-2024 12:08-0500 Body weight 78.1 kg Rafaela Pralesterler-Ziyad MACHINIST SET UP.AGILE COACH Work Phone: [facility] 02-27-2024 12:08-0500 Diastolic blood pressure 82 mm[Hg] Rafaela Praisler-Wood MACHINIST SET UP.AGILE COACH Work Phone: [facility] 02-27-2024 12:08-0500 Heart rate 96 /min Rafaela Ahn-Ziyad MACHINIST SET UP.AGILE COACH Work Phone: [facility] 02-27-2024 12:08-0500 Respiratory rate 18 /min Rafaela Hand APRN.AGILE COACH Work Phone: [facility] 02-27-2024 12:08-0500 SaO2% (BldA) [Mass fraction] 99 % Rafaela Hand MACHINIST SET UP.AGILE COACH Work Phone: [facility] 02-27-2024 12:08-0500 Systolic blood pressure 124 mm[Hg] Rafaela Hand APRN.AGILE COACH Work Phone: [facility] 12-20-2023 15:57-0400 Body mass index (BMI) [Ratio] 38.84 kg/m2 Monika Bales APRN.AGILE COACH Work Phone: [facility] 12-20-2023 15:57-0400 Body temperature 98.2 [degF] Monika Bales APRN.AGILE COACH Work Phone: [facility] 12-20-2023 15:57-0400 Body weight 80 kg Monika Bales APRN.AGILE COACH Work Phone: [facility] 12-20-2023 15:57-0400 Diastolic blood pressure 82 mm[Hg] Monika Bales APRN.AGILE COACH Work Phone: [facility] 12-20-2023 15:57-0400 Heart rate 90 /min Monika Bales APRN.AGILE COACH Work Phone: [facility] 12-20-2023 15:57-0400 Respiratory rate 14 /min Monika Bales APRN.AGILE COACH Work Phone: [facility] 12-20-2023 15:57-0400 SaO2% (BldA) [Mass fraction] 95 % Monika Bales APRN.AGILE COACH Work Phone: [facility] 12-20-2023 15:57-0400 Systolic blood pressure 126 mm[Hg] Monika Bales APRN.AGILE COACH Work Phone: [facility] 12-08-2023 09:55-0400 Body mass index (BMI) [Ratio] 38.41 kg/m2 Agnieszka Bruce MD Work Phone: [facility] 12-08-2023 09:55-0400 Body temperature 98.29 [degF] Agnieszka Bruce MD Work Phone: [facility] 12-08-2023 09:55-0400 Body weight 79.1 kg Agnieszka Bruce MD Work Phone: [facility] 12-08-2023 09:55-0400 Diastolic blood pressure 76 mm[Hg] Agnieszka Bruce MD Work Phone: [facility] 12-08-2023 09:55-0400 Heart rate 79 /min Agnieszka Bruce MD Work Phone: [facility] 12-08-2023 09:55-0400 Respiratory rate 16 /min Agnieszka Bruce MD Work Phone: [facility] 12-08-2023 09:55-0400 SaO2% (BldA) [Mass fraction] 99 % Agnieszka Bruce MD Work Phone: [facility] 12-08-2023 09:55-0400 Systolic blood pressure 110 mm[Hg] Agnieszka Bruce MD Work Phone: [facility] 06-15-2023 08:11-0400 Body mass index (BMI) [Ratio] 39.34 kg/m2 Hamilton Oakes MACHINIST SET UP.INSPECTOR MACHINE [employer]S Work Phone: [facility] 06-15-2023 08:11-0400 Body weight 81.01 kg Hamilton Oakes MACHINIST SET UP.INSPECTOR [employer]INE [employer]S Work Phone: [facility] 06-15-2023 08:11-0400 Diastolic blood pressure 76 mm[Hg] Hamilton Oakes MACHINIST SET UP.INSPECTOR [employer]ACHINE [employer]S Work Phone: [facility] 06-15-2023 08:11-0400 Heart rate 93 /min Hamilton Oakes MACHINIST SET UP.INSPECTOR [employer]INE [employer]S Work Phone: [facility] 06-15-2023 08:11-0400 Respiratory rate 16 /min Hamilton Oakes MACHINIST SET UP.INSPECTOR MACHINE [employer]S Work Phone: [facility] 06-15-2023 08:11-0400 SaO2% (BldA) [Mass fraction] 98 % Hamilton Oakes MACHINIST SET UP.INSPECTOR [employer]ACHINE [employer]S Work Phone: [facility] 06-15-2023 08:11-0400 Systolic blood pressure 128 mm[Hg] Hamilton Oakes MACHINIST SET UP.INSPECTOR [employer]INE [employer]S Work Phone: [facility] 05-24-2023 10:58-0400 Diastolic blood pressure 84 mm[Hg] Hamilton Oakes MACHINIST SET UP.INSPECTOR [employer]ACHINE [employer]S Work Phone: [facility] 05-24-2023 10:58-0400 Heart rate 106 /min Hamilton Oakes MACHINIST SET UP.INSPECTOR [employer]INE [employer]S Work Phone: [facility] 05-24-2023 10:58-0400 Systolic blood pressure 141 mm[Hg] Hamilton Oakes MACHINIST SET UP.INSPECTOR MACHINE [employer]S Work Phone: [facility] 05-24-2023 10:57-0400 Body weight 83.01 kg Hamilton Oakes MACHINIST SET UP.INSPECTOR [employer]INE [employer]S Work Phone: [facility] 05-24-2023 10:57-0400 Respiratory rate 16 /min Hamilton Oakes MACHINIST SET UP.INSPECTOR [employer]ACHINE [employer]S Work Phone: [facility] 05-22-2023 07:44-0400 Body temperature 98 [degF] [place] 05-22-2023 07:44-0400 Diastolic blood pressure 81 mm[Hg] [facility] 05-22-2023 07:44-0400 Heart rate 92 /min [facility] 05-22-2023 07:44-0400 Respiratory rate 16 /min [place] 05-22-2023 07:44-0400 SaO2% (BldA) [Mass fraction] 100 % [facility] 05-22-2023 07:44-0400 Systolic blood pressure 144 mm[Hg] [facility] 05-22-2023 04:35-0400 Body height 142.24 cm [facility] 05-22-2023 04:35-0400 Body mass index (BMI) [Ratio] 40.3 kg/m2 [facility] 05-22-2023 04:35-0400 Body weight 81.6 kg [facility] 12-09-2022 15:23-0400 Body temperature 98.1 [degF] Agnieszka Bruce MD Work Phone: [facility] 12-09-2022 15:23-0400 Body weight 79.38 kg Agnieszka Bruce MD Work Phone: [facility] 12-09-2022 15:23-0400 Diastolic blood pressure 78 mm[Hg] Agnieszka Bruce MD Work Phone: [facility] 12-09-2022 15:23-0400 Heart rate 81 /min Agnieszka Bruce MD Work Phone: [facility] 12-09-2022 15:23-0400 Respiratory rate 18 /min Agnieszka Bruce MD Work Phone: [facility] 12-09-2022 15:23-0400 SaO2% (BldA) [Mass fraction] 97 % Agnieszka Bruce MD Work Phone: [facility] 12-09-2022 15:23-0400 Systolic blood pressure 122 mm[Hg] Agnieszka Bruce MD Work Phone: [facility] 12-01-2022 11:05-0400 Body temperature 98.4 [degF] Mukul Romano MACHINIST SET UP.AGILE COACH Work Phone: [facility] 12-01-2022 11:05-0400 Body weight 78.02 kg Mukul Romano MACHINIST SET UP.AGILE COACH Work Phone: [facility] 12-01-2022 11:05-0400 Diastolic blood pressure 74 mm[Hg] Mukul Romano MACHINIST SET UP.AGILE COACH Work Phone: [facility] 12-01-2022 11:05-0400 Heart rate 94 /min Mukul Romano MACHINIST SET UP.AGILE COACH Work Phone: [facility] 12-01-2022 11:05-0400 Respiratory rate 16 /min Mukul Romano MACHINIST SET UP.AGILE COACH Work Phone: [facility] 12-01-2022 11:05-0400 SaO2% (BldA) [Mass fraction] 96 % Mukul Romano MACHINIST SET UP.AGILE COACH Work Phone: [facility] 12-01-2022 11:05-0400 Systolic blood pressure 132 mm[Hg] Mukul Romano MACHINIST SET UP.AGILE COACH Work Phone: [facility] 09-07-2022 14:56-0400 Body height 143.[address] Agnieszka Bruce Work Phone: [facility] 09-07-2022 14:49-0400 Body mass index (BMI) [Ratio] 38.6 kg/m2 Dr. Agnieszka Bruce Work Phone: [facility] 09-07-2022 14:49-0400 Body weight 79.[address] Agnieszka Bruce Work Phone: [facility] 09-07-2022 14:49-0400 Diastolic blood pressure 80 mm[Hg] Dr. Agnieszka Bruce Work Phone: [facility] 09-07-2022 14:49-0400 Systolic blood pressure 134 mm[Hg] Dr. Agnieszka Bruce Work Phone: [facility] 05-24-2022 10:29-0400 Body temperature 100.2 [degF] Izzy Cook MACHINIST SET UP.AGILE COACH Work Phone: [facility] 05-24-2022 10:29-0400 Body weight 77.2 kg Izzy Cook MACHINIST SET UP.AGILE COACH Work Phone: [facility] 05-24-2022 10:29-0400 Diastolic blood pressure 90 mm[Hg] Izzy Cook MACHINIST SET UP.AGILE COACH Work Phone: [facility] 05-24-2022 10:29-0400 Heart rate 105 /min Izzy Cook MACHINIST SET UP.AGILE COACH Work Phone: [facility] 05-24-2022 10:29-0400 Respiratory rate 21 /min Izzy Cook MACHINIST SET UP.AGILE COACH Work Phone: [facility] 05-24-2022 10:29-0400 SaO2% (BldA) [Mass fraction] 96 % Izzy Cook MACHINIST SET UP.AGILE COACH Work Phone: [facility] 05-24-2022 10:29-0400 Systolic blood pressure 152 mm[Hg] Izzy Cook MACHINIST SET UP.AGILE COACH Work Phone: [facility] 04-27-2022 17:07-0500 Heart rate 84 /min Agnieszka Bruce MD Work Phone: [facility] 04-27-2022 16:41-0500 Body temperature 97.9 [degF] Agnieszka Bruce MD Work Phone: [facility] 04-27-2022 16:41-0500 Body weight 78.47 kg Agnieszka Bruce MD Work Phone: [facility] 04-27-2022 16:41-0500 Diastolic blood pressure 72 mm[Hg] Agnieszka Bruce MD Work Phone: [facility] 04-27-2022 16:41-0500 Respiratory rate 18 /min Agnieszka Bruce MD Work Phone: [facility] 04-27-2022 16:41-0500 SaO2% (BldA) [Mass fraction] 97 % Agnieszka Bruce MD Work Phone: [facility] 04-27-2022 16:41-0500 Systolic blood pressure 116 mm[Hg] Agnieszka Bruce MD Work Phone: [facility] 03-11-2022 09:03-0500 Diastolic blood pressure 83 mm[Hg] Mi Nurse Work Phone: [facility] 03-11-2022 09:03-0500 Heart rate 79 /min Mi Nurse Work Phone: [facility] 03-11-2022 09:03-0500 Systolic blood pressure 146 mm[Hg] Mi Nurse Work Phone: [facility] 01-28-2022 16:57-0500 Diastolic blood pressure 83 mm[Hg] Gerald Espinal MD Work Phone: [facility] 01-28-2022 16:57-0500 Systolic blood pressure 144 mm[Hg] Gerald Espinal MD Work Phone: [facility] 01-28-2022 16:46-0500 Body temperature 97.11 [degF] Gerald Espinal MD Work Phone: [facility] 01-28-2022 16:46-0500 Body weight 78.02 kg Gerald Espinal MD Work Phone: [facility] 01-28-2022 16:46-0500 Heart rate 89 /min Gerald Espinal MD Work Phone: [facility] 01-28-2022 16:46-0500 Respiratory rate 18 /min Gerald Espinal MD Work Phone: [facility] 01-28-2022 16:46-0500 SaO2% (BldA) [Mass fraction] 97 % Gerald Espinal MD Work Phone: [facility] 01-25-2022 12:17-0500 Body temperature 99 [degF] Rafaela Praisler-Wood MACHINIST SET UP.AGILE COACH Work Phone: [facility] 01-25-2022 12:17-0500 Body weight 78.2 kg Rafaela Praisler-Wood MACHINIST SET UP.AGILE COACH Work Phone: [facility] 01-25-2022 12:17-0500 Diastolic blood pressure 76 mm[Hg] Rafaela Praisler-Wood MACHINIST SET UP.AGILE COACH Work Phone: [facility] 01-25-2022 12:17-0500 Heart rate 101 /min Rafaela Praisler-Wood MACHINIST SET UP.AGILE COACH Work Phone: [facility] 01-25-2022 12:17-0500 Respiratory rate 18 /min Rafaela Praisler-Wood MACHINIST SET UP.AGILE COACH Work Phone: [facility] 01-25-2022 12:17-0500 SaO2% (BldA) [Mass fraction] 96 % Rafaela Ahn-Ziyad MACHINIST SET UP.AGILE COACH Work Phone: [facility] 01-25-2022 12:17-0500 Systolic blood pressure 130 mm[Hg] Rafaela Ahn-Ziyad MACHINIST SET UP.AGILE COACH Work Phone: [facility] 09-09-2021 09:20-0400 Body weight 78.93 kg Hamiltonjarrell Isaacss MACHINIST SET UP.INSPECTOR MACHINE PARTS Work Phone: [facility] 09-09-2021 09:20-0400 Diastolic blood pressure 82 mm[Hg] Hamilton Oakes MACHINIST SET UP.INSPECTOR MACHINE PARTS Work Phone: [facility] 09-09-2021 09:20-0400 Heart rate 92 /min Hamilton Oakes MACHINIST SET UP.INSPECTOR MACHINE [employer]S Work Phone: [facility] 09-09-2021 09:20-0400 Respiratory rate 16 /min Hamilton Oakes MACHINIST SET UP.INSPECTOR MACHINE [employer]S Work Phone: [facility] 09-09-2021 09:20-0400 Systolic blood pressure 134 mm[Hg] Hamilton Oakes MACHINIST SET UP.INSPECTOR MACHINE PARTS Work Phone: [facility] 09-04-2021 11:18-0400 Body height 143.[address] Agnieszka Bruce Work Phone: [facility] Work Phone: 09-04-2021 11:18-0400 Body mass index (BMI) [Ratio] 39.1 kg/m2 Dr. Agnieszka Bruce Work Phone: [facility] Work Phone: 09-04-2021 11:18-0400 Body weight 80.[address] Agnieszka Bruce Work Phone: [facility] Work Phone: 09-04-2021 11:18-0400 Diastolic blood pressure 78 mm[Hg] Dr. Agnieszka Bruce Work Phone: [facility] Work Phone: 09-04-2021 11:18-0400 Systolic blood pressure 132 mm[Hg] Dr. Agnieszka Bruce Work Phone: [facility] Work Phone: 03-12-2021 16:19-0500 Diastolic blood pressure 78 mm[Hg] Agnieszka Bruce MD Work Phone: [facility] 03-12-2021 16:19-0500 Systolic blood pressure 128 mm[Hg] Agnieszka Bruce MD Work Phone: [facility] 03-12-2021 15:15-0500 Body weight 78.93 kg Agnieszka Bruce MD Work Phone: [facility] 03-12-2021 15:15-0500 Heart rate 82 /min Agnieszka Bruce MD Work Phone: [facility] Encounters Encounter Date Encounter Type Care Provider Facility Start: 09-20-2024 ambulatory Agnieszka Calabrese y:[facility] Start: 09-19-2024 ambulatory Yumiko Castletings Facility :[facility] Start: 09-19-2024 End: 09-19-[address] Agnieszka Bruce MD Work Phone: [facility] Start: 09-19-2024 End: 09-19-2024 Patient encounter procedure EMMANUEL Wright -[facility] Work Phone: Start: 08-22-2024 Non-patient / Non-visit Dr. Armand Huffman MD -[facility] Work Phone: Start: 07-19-2024 End: 07-19-[address] Agnieszka Bruce MD Work Phone: [facility] Work Phone: Start: 07-19-2024 End: 07-19-[address] Ann-Marie Huffman MD -[facility] [place] Work Phone: Start: 07-19-2024 End: 07-19-2024 ambulatory Ann-Marie Huffman Facility:[facility] Start: 06-14-2024 End: 06-14-2024 Patient encounter procedure Macey Neri APRN.AGILE COACH Work Phone: [facility] [place] Comment on above: Psychophysiological insomnia (Primary Dx); Mild intermittent asthma without complication (HCC); Primary hypertension; Impaired fasting glucose; Screening for depression; Encounter for screening examination for other mental health and behavioral disorders; Encounter for screening mammogram for breast cancer; Encounter for immunization Start: 06-14-2024 End: 06-14-2024 ambulatory MACEY NERI Facility:[facility] Start: 06-03-2024 End: 06-03-2024 ambulatory AGNIESZKA BRUCE Facility:[facility] Start: 03-22-2024 End: 03-22-2024 ambulatory Agnieszka Bruce [facility] Start: 02-27-2024 End: 02-27-2024 [facility] Start: 02-27-2024 End: 02-27-2024 Patient encounter procedure Rafaela Hand APRN.AGILE COACH Work Phone: [facility] Comment on above: Sore throat (Primary Dx); Strep throat; Sinobronchitis Start: 02-11-2024 End: 02-21-2024 Telephone encounter Agnieszka Bruce MD Work Phone: [facility] [place] Comment on above: Orders ([facility]) Start: 12-20-2023 End: 12-20-2023 ambulatory AGNIESZKA BRUCE Facility:[facility] Start: 12-20-2023 End: 12-20-2023 Patient encounter procedure Monika Bales APRN.AGILE COACH Work Phone: [facility] Comment on above: Sore throat (Primary Dx) Start: 12-08-2023 End: 12-08-2023 Office outpatient visit 25 minutes Agnieszka Bruce MD Work Phone: [facility] [place] Comment on above: Primary hypertension (Primary Dx); Mild intermittent asthma without complication; RLS (restless legs syndrome); Class 2 obesity due to excess calories with body mass index (BMI) of 38.0 to 38.9 in adult, unspecified whether serious comorbidity present; Psychophysiological insomnia; Impaired fasting glucose Start: 12-08-2023 End: 12-08-2023 ambulatory AGNIESZKA BRUCE Facility:[facility] Start: 12-04-2023 End: 12-04-2023 ambulatory HAMILTON OAKES Facility:[facility] Start: 10-19-2023 End: 10-19-2023 ambulatory Sage Sonja Javi Facility:[facility] Start: 09-27-2023 Refill Agnieszka bishop MD Work Phone: [facility] [place] Comment on above: Refill Request Start: 06-15-2023 End: 06-15-2023 Office outpatient visit 25 minutes Hamilton Oakes MACHINIST SET UP.INSPECTOR MACHINE PARTS Work Phone: [facility] [place] Comment on above: Renal calculus (Prim yecenia Dx); Psychophysiological insomnia; RLS (restless legs syndrome); Elevated blood pressure reading; Obesity, Class II, BMI 35-39.9; Encounter for immunization; Encounter for screening mammogram for breast cancer Start: 05-24-2023 End: 05-24-2023 Office outpatient visit 25 minutes Hamilton Oakes MACHINIST SET UP.INSPECTOR MACHINE PARTS Work Phone: [facility] [place] Comment on above: Renal calculus (Prim yecenia Dx); Perineal itching, female Start: 05-22-2023 End: 05-22-2023 Emergency department patient visit [facility] Work Phone: Start: 12-09-2022 End: 12-09-2022 Office outpatient visit 25 minutes Agnieszka Bruce MD Work Phone: [facility] [place] Comment on above: Essential hypertensi on (Primary Dx); Elevated hemoglobin A1c; Hypercalcemia; Class 2 obesity due to excess calories with body mass index (BMI) of 38.0 to 38.9 in adult, unspecified whether serious comorbidity present; Encounter for long-term current use of medication Start: 12-01-2022 End: 12-01-2022 Office outpatient visit 25 minutes Mukul Romano MACHINIST SET UP.AGILE COACH Work Phone: [facility] Comment on above: Sinobronchitis (Prim yecenia Dx) Start: 11-13-2022 Refill Agnieszka bishop MD Work Phone: [facility] Start: 09-22-2022 Refill Agnieszka bishop MD Work Phone: [facility] Comment on above: Refill Request Start: 09-07-2022 End: 09-07-[address] Agnieszka Bruce Work Phone: [facility] Work Phone: Start: 09-07-2022 End: 09-07-[address] Agnieszka Bruce Work Phone: [facility] Work Phone: Start: 06-24-2022 Refill Macey Neri MACHINIST SET UP.AGILE COACH Work Phone: [facility] [place] Comment on above: Refill Request Start: 05-24-2022 End: 05-24-2022 Patient encounter procedure Izzy Cook MACHINIST SET UP.AGILE COACH Work Phone: [facility] Comment on above: Pharyngitis, unspeci fied etiology (Primary Dx); Acute otitis media, right Start: 05-19-2022 Telephone encounter Hamilton Nicholaslawrence singh MACHINIST SET UP.INSPECTOR MACHINE PARTS Work Phone: [facility] [place] Comment on above: Results (Labs/) Start: 05-08-2022 Refill Macey Daron MACHINIST SET UP.AGILE COACH Work Phone: [facility] [place] Comment on above: Refill Request Start: 04-27-2022 End: 04-27-2022 Office outpatient visit 25 minutes Agnieszka Bruce MD Work Phone: [facility] [place] Comment on above: Essential hypertensi on (Primary Dx); RLS (restless legs syndrome); Obesity, Class II, BMI 35-39.9; Elevated hemoglobin A1c Start: 04-09-2022 Refill Macey Neri MACHINIST SET UP.AGILE COACH Work Phone: [facility] [place] Comment on above: Refill Request Start: 03-11-2022 Telephone encounter Agnieszka price MD Work Phone: [facility] [place] Comment on above: Blood Pressure Check (/) Start: 03-11-2022 End: 03-11-2022 Nursing evaluation of patient and report Mi Nurse Work Phone: [facility] Comment on above: Hypertension, essent ial (Primary Dx) Start: 02-02-2022 Telephone encounter Agnieszka price MD Work Phone: [facility] [place] Comment on above: results-chest xray Start: 01-28-2022 End: 01-28-2022 Subsequent hospital visit by physician [facility] Work Phone: [facility] Comment on above: Bronchitis with bron chospasm [J20.9] Start: 01-28-2022 End: 01-28-2022 Patient encounter procedure Gerald Espinal MD Work Phone: [facility] [place] Comment on above: Bronchitis with bron chospasm (Primary Dx); Elevated blood pressure reading; Obesity, Class II, BMI 35-39.9 Start: 01-25-2022 End: 01-25-2022 Patient encounter procedure Rafaela Hand APRN.AGILE COACH Work Phone: [facility] Comment on above: Viral URI with cough (Primary Dx) Start: 09-09-2021 End: 09-09-2021 Patient encounter procedure Hamilton Oakes APRN.INSPECTOR MACHINE PARTS Work Phone: [facility] [place] Comment on above: Obesity, Class II, B ME 35-39.9 (Primary Dx); Encounter for immunization; Screening for cervical cancer; Impaired fasting glucose; Essential hypertension; RLS (restless legs syndrome); Psychophysiological insomnia Start: 09-05-2021 End: 09-05-[address] Agnieszka Bruce Work Phone: [facility] Start: 09-04-2021 End: 09-04-[address] Agnieszka Bruce Work Phone: [facility] Start: 07-17-2021 End: 07-17-2021 Patient encounter procedure [facility] Start: 07-02-2021 Telephone encounter Agnieszka price MD Work Phone: [facility] [place] Comment on above: Patient Question (re quest refill please ) Start: 03-12-2021 End: 03-12-2021 Patient encounter procedure Agnieszka Bruce MD Work Phone: [facility] [place] Comment on above: RLS (restless legs s yndrome) (Primary Dx); Essential hypertension; Class 2 obesity due to excess calories without serious comorbidity with body mass index (BMI) of 39.0 to 39.9 in adult; Special screening for malignant neoplasms, colon; Need for vaccination; Elevated hemoglobin A1c Procedures Date Procedure Procedure Detail Performing Clinician Start: 07-19-2024 Plain X-ray abdomen Dr. Agnieszka Bruce MD Work Phone: Start: 06-14-2024 Adult depression scr eening assessment Macey Neri MACHINIST SET UP.AGILE COACH Work Phone: Start: 06-03-2024 Lipid 1996 panel - S jefferson or Plasma Macey Neri MACHINIST SET UP.AGILE COACH Work Phone: Start: 02-27-2024 STREP A MOLECULAR (POC) Rafaela Hand MACHINIST SET UP.AGILE COACH Work Phone: Start: 12-20-2023 STREP A MOLECULAR (POC) Roberto Javier MACHINIST SET UP.AGILE COACH Work Phone: Start: 06-15-2023 Adult depression scr eening assessment Agnieszka Bruce MD Work Phone: Start: 05-22-2023 CT of abdomen and pe lvis without contrast Start: 09-07-2022 End: 09-07-[address] Agnieszka Bruce Work Phone: Start: 05-24-2022 STREP A MOLECULAR (POC) Izzy Cook MACHINIST SET UP.AGILE COACH Work Phone: Start: 01-28-2022 Radiologic exam ches t 2 views Gerald Espinal MD Work Phone: Start: 09-09-2021 Adult depression scr eening assessment Hamilton Oakes APRN.INSPECTOR MACHINE PARTS Work Phone: Start: 09-05-2021 End: 09-05-[address] Agnieszka Bruce Work Phone: Start: 04-11-2021 Colonoscopy Agnieszka jones MD Work Phone: Start: 12-30-2020 Lipid 1996 panel - S jefferson or Plasma Agnieszka Bruce MD Work Phone: Start: 09-04-2020 Mammography Agnieszka jones MD Work Phone: Start: 06-10-2020 Adult depression scr eening assessment Agnieszka Bruce MD Work Phone: Plan of Treatment Date Care Activity Detail Author Start: 03-12-2031 Urine microalbumin profile [facility] Start: 06-03-2029 Lipid panel Lipid Screening [facility] Start: 06-04-2027 Diabetes Screening Diabetes Screening [facility] Start: 12-03-2026 Diabetes Screening Diabetes Screening [facility] Start: 04-11-2026 Colonoscopy COLONOSCOPY [facility] Start: 04-11-2026 COLORECTAL CANCER SCREENING COLORECTAL CANCER SCREENING [facility] Start: 04-11-2026 Screening for malignant neoplasm of colon [facility] Start: 12-30-2025 Lipid 1996 panel - Serum or Plasma Lipid Screening [facility] Start: 12-30-2025 Lipid panel Lipid Screening [facility] Start: 12-30-2025 LIPID SCREEN LIPID SCREEN [facility] Start: 12-11-2025 Diabetes Screening Diabetes Screening [facility] Start: 09-09-2025 PAP TESTING PAP TESTING [facility] Start: 09-09-2025 Screening for malignant neoplasm of cervix [facility] Start: 06-14-2025 Annual PCP Team Chronic Disease Visit Annual PCP Team Chronic Disease Visit [facility] Start: 06-14-2025 Anxiety Screening Anxiety Screening [facility] Start: 06-14-2025 BP Controlled (<130/80) BP Controlled (<130/80) [facility] Start: 06-14-2025 Depression Screening Depression Screening [facility] Start: 03-18-2026 DIABETES SCREEN DIABETES SCREEN [facility] Start: 05-09-2025 Diabetes Screening Diabetes Screening [facility] Start: 12-13-2024 End: 12-13-2024 Patient encounter procedure 12/13/2024 9:00 AM EDT Office Visit [facility] [address] [facility] [place] [address] Agnieszka Bruce MD [address] [facility] [place] [address] 6 month follow up [facility] Comment on above: 6 month follow up Start: 12-07-2024 Annual PCP Team Chronic Disease Visit Annual PCP Team Chronic Disease Visit [facility] Start: 12-07-2024 BP Controlled (<130/80) BP Controlled (<130/80) [facility] Start: 09-14-2024 Screening for malignant neoplasm of breast Mammogram Screening [facility] Start: 08-30-2024 DIABETES SCREEN DIABETES SCREEN [facility] Start: 08-21-2024 Influenza vaccination Influenza Vaccine (#1) [facility] Comment on above: Postponed from 10/24/2023 (Declined at t his time) Start: 06-21-2024 End: 06-21-2024 Patient encounter procedure 06/21/2024 10:40 AM EDT Office Visit [facility] [address] [facility] [place] [address] Agnieszka Bruce MD [address] [facility] [place] [address] 6 month follow up [facility] Comment on above: 6 month follow up Start: 06-14-2024 Anxiety Screening Anxiety Screening [facility] Start: 06-14-2024 BP Controlled (<130/80) BP Controlled (<130/80) [facility] Start: 06-14-2024 Depression Screening Depression Screening [facility] Start: 05-07-2024 End: 08-06-2024 CBC panel - Blood by Automated count COMPLETE BLOOD COUNT Lab Routine Primary hypertension Expected: 05/07/2024 (Approximate), Expires: 08/06/2024 [facility] Comment on above: Expected: 05/07/2024 (Approximate), Expi res: 08/06/2024 Start: 05-07-2024 End: 08-06-2024 Comprehensive metabolic 2000 panel - Serum or Plasma COMPREHENSIVE METABOLIC PANEL Lab Routine Primary hypertension Impaired fasting glucose Expected: 05/07/2024 (Approximate), Expires: 08/06/2024 [facility] Work Phone: Comment on above: Expected: 05/07/2024 (Approximate), Expi res: 08/06/2024 Start: 05-07-2024 End: 08-06-2024 Hemoglobin A1c in Blood HEMOGLOBIN A1C Lab Routine Impaired fasting glucose Expected: 05/07/2024 (Approximate), Expires: 08/06/2024 [facility] Comment on above: Expected: 05/07/2024 (Approximate), Expi res: 08/06/2024 Start: 05-07-2024 End: 08-06-2024 Lipid 1996 panel - Serum or Plasma LIPID PANEL BASIC Lab Routine Primary hypertension Expected: 05/07/2024 (Approximate), Expires: 08/06/2024 [facility] Comment on above: Expected: 05/07/2024 (Approximate), Expi res: 08/06/2024 Start: 12-31-2023 DIABETES SCREEN DIABETES SCREEN [facility] Start: 12-15-2023 End: 03-15-2024 CBC W Auto Differential panel - Blood COMPLETE BLOOD COUNT AND DIFFERENTIAL Lab Routine Psychophysiological insomnia RLS (restless legs syndrome) Obesity, Class II, BMI 35-39.9 Expected: 12/15/2023, Expires: 03/15/2024 [facility] Comment on above: Expected: 12/15/2023, Expires: Start: 12-15-2023 End: 03-15-2024 Comprehensive metabolic 2000 panel - Serum or Plasma COMPREHENSIVE METABOLIC PANEL Lab Routine Psychophysiological insomnia RLS (restless legs syndrome) Obesity, Class II, BMI 35-39.9 Expected: 12/15/2023 (Approximate), Expires: 03/15/2024 [facility] Comment on above: Expected: 12/15/2023 (Approximate), Expi res: 03/15/2024 Start: 12-15-2023 End: 03-15-2024 Thyrotropin [Units/volume] in Serum or Plasma THYROID STIMULATING HORMONE Lab Routine Obesity, Class II, BMI 35-39.9 Expected: 12/15/2023 (Approximate), Expires: 03/15/2024 [facility] Comment on above: Expected: 12/15/2023 (Approximate), Expi res: 03/15/2024 Start: 12-12-2023 Hepb vaccine adult 3 dose schedule for im use HEP B VACCINE, 3-DOSE, AGE 20+ YR (ENGERIX-B, RECOMBIVAX HB) Immunization/Injection Routine Encounter for immunization Expected: 12/12/2023 [facility] Comment on above: Expected: 12/12/2023 Start: 12-10-2023 Annual PCP Team Chronic Disease Visit Annual PCP Team Chronic Disease Visit [facility] Start: 12-10-2023 BP Controlled (<130/80) BP Controlled (<130/80) [facility] Start: 12-10-2023 HPV Testing HPV Testing [facility] Comment on above: Postponed from 02/18/2022 (Declined at t his time) Start: 12-10-2023 Screening for malignant neoplasm of cervix HPV Testing [facility] Comment on above: Postponed from 02/18/2022 (Declined at t his time) Start: 12-08-2023 End: 12-08-2023 Patient encounter procedure 12/08/2023 10:00 AM EDT Office Visit [facility] [address] [place] [address] Agnieszka Bruce MD [address] [place] [address] 6 month follow up-HEP B #1 (please schedule #2 & #3) [facility] Comment on above: 6 month follow up-HEP B #1 (please sched ule #2 & #3) Start: 10-24-2023 Influenza vaccination [facility] Start: 09-08-2023 Mammography [facility] Start: 09-08-2023 Screening for malignant neoplasm of breast Mammogram Screening [facility] Start: 07-15-2023 Hepb vaccine adult 3 dose schedule for im use HEP B VACCINE, 3-DOSE, AGE 20+ YR (ENGERIX-B, RECOMBIVAX HB) Immunization/Injection Routine Encounter for immunization Expected: 07/15/2023 [facility] Comment on above: Expected: 07/15/2023 Start: 04-28-2023 ANNUAL PCP TEAM CHRONIC DISEASE VISIT ANNUAL PCP TEAM CHRONIC DISEASE VISIT [facility] Start: 04-28-2023 BP CONTROLLED (<130/80) BP CONTROLLED (<130/80) [facility] Start: 04-28-2023 HEPATITIS B (1 of 3 - 3-dose series) HEPATITIS B (1 of 3 - 3-dose series) [facility] Comment on above: Postponed from 1964 (Declined at t his time) Start: 04-28-2023 Hepatitis B Vaccine (1 of 3 - 3-dose series) Hepatitis B Vaccine (1 of 3 - 3-dose series) [facility] Comment on above: Postponed from 1965 (Declined at t his time) Start: 02-22-2023 Depression Assessment Depression Assessment [facility] Start: 01-28-2023 ANNUAL PCP TEAM CHRONIC DISEASE VISIT ANNUAL PCP TEAM CHRONIC DISEASE VISIT [facility] Start: 10-23-2022 Influenza vaccination [facility] Start: 09-09-2022 Adult depression screening assessment DEPRESSION SCREENING [facility] Start: 09-09-2022 BP CONTROLLED (<130/80) BP CONTROLLED (<130/80) [facility] Start: 09-07-2022 HPV TESTING HPV TESTING [facility] Comment on above: Postponed from 02/18/2022 (Currently Tony eduled) Start: 09-05-2022 Mammography MAMMOGRAM [facility] Start: 04-27-2022 End: 06-27-2022 Hemoglobin A1c in Blood HGB A1C Lab Routine Elevated hemoglobin A1c Expected: 04/27/2022, Expires: 06/27/2022 [facility] Work Phone: Comment on above: Expected: 04/27/2022, Expires: Start: 03-12-2022 ANNUAL PCP TEAM CHRONIC DISEASE VISIT ANNUAL PCP TEAM CHRONIC DISEASE VISIT [facility] Start: 02-23-2022 End: 08-21-2022 CBC W Auto Differential panel - Blood CBC + DIFF Lab Routine Essential hypertension RLS (restless legs syndrome) Expected: 02/23/2022 (Approximate), Expires: 08/21/2022 [facility] Work Phone: Comment on above: Expected: 02/23/2022 (Approximate), Expi res: 08/21/2022 Start: 02-23-2022 End: 08-21-2022 Comprehensive metabolic 2000 panel - Serum or Plasma COMP METABOLIC PANEL Lab Routine Essential hypertension RLS (restless legs syndrome) Expected: 02/23/2022 (Approximate), Expires: 08/21/2022 [facility] Work Phone: Comment on above: Expected: 02/23/2022 (Approximate), Expi res: 08/21/2022 Start: 02-23-2022 HPV TESTING HPV TESTING [facility] Comment on above: Postponed from 02/18/2022 (Postponed To Appropriate Date) Start: 02-23-2022 End: 08-21-2022 Thyrotropin [Units/volume] in Serum or Plasma TSH BLD Lab Routine Essential hypertension RLS (restless legs syndrome) Expected: 02/23/2022 (Approximate), Expires: 08/21/2022 [facility] Work Phone: Comment on above: Expected: 02/23/2022 (Approximate), Expi res: 08/21/2022 Start: 02-22-2022 DEPRESSION ASSESSMENT DEPRESSION ASSESSMENT [facility] Start: 02-18-2022 HPV TESTING HPV TESTING [facility] Start: 02-18-2022 PAP TESTING PAP TESTING [facility] Start: 01-25-2022 End: 02-08-2022 Influenza virus A and B RNA and SARS-CoV-2 (COVID-19) N gene panel - Respiratory specimen by PETRA with probe detection COVID WITH FLUA+B, ROUTINE Microbiology Routine Viral URI with cough Expected: 01/25/2022, Expires: 02/08/2022 [facility] Work Phone: Comment on above: Expected: 01/25/2022, Expires: Start: 10-23-2021 Influenza vaccination INFLUENZA (#1) [facility] Start: 09-04-2021 Mammography MAMMOGRAM [facility] Start: 06-10-2021 Adult depression screening assessment DEPRESSION SCREENING [facility] Start: 03-12-2021 End: 03-12-2022 CBC panel - Blood by Automated count CBC Lab Routine Essential hypertension Expected: 03/12/2021, Expires: 03/12/2022 [facility] Work Phone: Comment on above: Expected: 03/12/2021, Expires: 3 Start: 03-12-2021 End: 03-12-2022 Comprehensive metabolic 2000 panel - Serum or Plasma COMP METABOLIC PANEL Lab Routine Essential hypertension Elevated hemoglobin A1c Expected: 03/12/2021, Expires: 03/12/2022 [facility] Work Phone: Comment on above: Expected: 03/12/2021, Expires: 3 Start: 03-12-2021 End: 03-12-2022 Hemoglobin A1c/Hemoglobin.total in Blood HGB A1C Lab Routine Elevated hemoglobin A1c Expected: 03/12/2021, Expires: 03/12/2022 [facility] Work Phone: Comment on above: Expected: 03/12/2021, Expires: 3 Start: 02-22-2021 DEPRESSION ASSESSMENT DEPRESSION ASSESSMENT [facility] Start: 03-11-2018 FECAL OCCULT BLOOD FECAL OCCULT BLOOD [facility] Start: 03-11-2018 Screening for malignant neoplasm of colon Fecal Occult Blood [facility] Start: 2014 Pneumococcal Vaccine: 50+ (1 of 1 - PCV) Pneumococcal Vaccine: 50+ (1 of 1 - PCV) [facility] Start: 2009 COLOGUARD (FIT-DNA) COLOGUARD (FIT-DNA) [facility] Start: [address] COLONOGRAPHY [facility] Start: 2009 Screening for malignant neoplasm of colon [facility] Start: 2009 SIGMOIDOSCOPY SIGMOIDOSCOPY [facility] Start: 10-17-1983 Hepatitis B Vaccine (1 of 3 - 19+ 3-dose series) Hepatitis B Vaccine (1 of 3 - 19+ 3-dose series) [facility] Start: 1982 BP CONTROLLED (<130/80) BP CONTROLLED (<130/80) [facility] Start: 1982 Spirometry Spirometry [facility] Start: 1969 COVID-19 VACCINE (#1) COVID-19 VACCINE (#1) [facility] Start: 1969 COVID-19 VACCINE (1) COVID-19 VACCINE (1) [facility] Start: 04-18-1965 COVID-19 VACCINE (#1) COVID-19 VACCINE (#1) [facility] Start: 1964 HEPATITIS B (1 of 3 - 3-dose series) HEPATITIS B (1 of 3 - 3-dose series) [facility] COVID 19 PRE-OP TESTING B/O COVID 19 PRE-OP TESTING B/O Lab Routine Special screening for malignant neoplasms, colon Ordered: 03/12/2021 [facility] Work Phone: Comment on above: Ordered: 03/12/2021 End: 07-14-2024 DBT Breast - bilateral screening ROGELIO SCREENING W MICHAEL Radiology Routine Encounter for screening mammogram for breast cancer 1 Occurrences starting 06/15/2023 until 07/14/2024 [facility] Comment on above: 1 Occurrences starting 06/15/2023 until 07/14/2024 End: 07-14-2025 DBT Breast - bilateral screening ROGELIO SCREENING W MICHAEL Radiology Routine Encounter for screening mammogram for breast cancer 1 Occurrences starting 06/14/2024 until 07/14/2025 [facility] Work Phone: Comment on above: 1 Occurrences starting 06/14/2024 until 07/14/2025 Hepb vaccine adult 3 dose schedule for im use HEP B VACCINE, 3-DOSE, AGE 20+ YR (ENGERIX-B, RECOMBIVAX HB) Immunization/Injection Routine Encounter for immunization 1 Occurrences starting 06/15/2023 [facility] Work Phone: Comment on above: 1 Occurrences starting 06/15/2023 Patient Education ED Kidney Stone with Pa in [facility] Work Phone: Patient referral [facility] Work Phone: PFIZER-BIONTECH COVID-19 VACCINE, AGE 12+ YR (GRANADOS TOP) PFIZER-BIONTECH COVID-19 VACCINE, AGE 12+ YR (GRANADOS TOP) Immunization/Injection Routine Encounter for immunization 1 Occurrences starting 09/09/2021 [facility] Work Phone: Comment on above: 1 Occurrences starting 09/09/2021 [facility] Immunizations Immunization Date Immunization Notes Care Provider Karla linkophelia 06-14-2024 pneumococcal conjugate (PCV20) vaccine, 20 valent (PREVNAR 20) Macey Neri MACHINIST SET UP.AGILE COACH Work Phone: [facility] 06-14-2024 pneumococcal Conjugate, unspecified formulation Macey Neri MACHINIST SET UP.AGILE COACH Work Phone: [facility] 01-23-2022 influenza, injectable, quadrivalent, preservative free Rafaela Hand MACHINIST SET UP.AGILE COACH Work Phone: [facility] 01-23-2022 influenza virus vaccine, unspecified formulation Agnieszka Bruce MD Work Phone: [facility] 03-12-2021 TD(adult) unspecifie d formulation Agnieszka Bruce MD Work Phone: [facility] Work Phone: 03-12-2021 tetanus and diphtheria toxoids, adsorbed, preservative free, for adult use (5 Lf of tetanus toxoid and 2 Lf of diphtheria toxoid) Agnieszka Bruce MD Work Phone: [facility] 12-23-2020 influenza, injectable, quadrivalent, contains preservative Agnieszka Bruce MD Work Phone: [facility] Work Phone: 03-19-2020 zoster vaccine recombinant Agnieszka Bruce MD Work Phone: [facility] Work Phone: 11-18-2019 zoster vaccine recombinant Agnieszka Bruce MD Work Phone: [facility] Work Phone: 11-13-2019 influenza, injectable, quadrivalent, contains preservative Agnieszka Bruce MD Work Phone: [facility] Work Phone: 04-04-2019 influenza, injectable, quadrivalent, contains preservative Agnieszka Bruce MD Work Phone: [facility] 12-04-2017 Influenza, injectable, Madin Adriana Canine Kidney, preservative free, quadrivalent Agnieszka Bruce MD Work Phone: [facility] 12-07-2016 influenza, seasonal, injectable Agnieszka Bruce MD Work Phone: [facility] Work Phone: 01-05-2016 influenza, seasonal, injectable Agnieszka Bruce MD Work Phone: [facility] Work Phone: 12-14-2014 influenza, seasonal, injectable Agnieszka Bruce MD Work Phone: [facility] 11-28-2012 influenza virus vaccine, whole virus Agnieszka Bruce MD Work Phone: [facility] Work Phone: 11-23-2011 influenza virus vaccine, unspecified formulation Agnieszka Bruce MD Work Phone: [facility] Work Phone: 01-20-2011 tetanus toxoid, reduced diphtheria toxoid, and acellular pertussis vaccine, adsorbed Agnieszka Bruce MD Work Phone: [facility] NEGATED: Highlighted row has not occurred!06-15-2023 hepatitis B vaccine, adult dosage Hamilton Oakes APRN.[facility] Work Phone: [facility] Comment on above: Deferred: OTHER - pt left. to get first dose at next office visit. Payers Date Payer Category Payer Self-pay [id number] 2021 Private Health Insurance [employer] [id number] 2021 Unknown [employer] PPO [id number] 2021-Present [phone] [address] [place] [address] PPO [id number] 2021 Unknown [id number] 2021 Unknown [id number] Private Health Insurance [id number] Private Health Insurance [id number] Unknown [id number] Unknown [id number] Unknown [id number] Unknown [id number] Unknown [id number] Unknown [id number] Social History Date Type Detail Facility Start: 02-22-2024 Tobacco smoking stat [facility] Never smoked tobacco [facility] Work Phone: Start: 03-12-2021 End: 06-14-2024 Alcohol intake Current drinker of alcohol (finding) [facility] Start: 02-05-2015 History SDOH Alcohol Comment Occasionally [facility] Start: 1965 Sex Assigned At Not on file [facility] Start: 03-12-2021 End: 01-25-2022 Exposure to SARS-CoV-2 (event) Not sure [facility] Start: 08-27-2020 End: 05-22-2023 Tobacco smoking status NHIS Unknown if ever smoked [facility] Start: 1965 Sex Assigned At Female [facility] Start: 05-24-2022 End: 12-09-2022 History of Social function [facility] Work Phone: Start: 05-24-2022 End: 12-09-2022 Tobacco use panel [facility] Work Phone: Adult Depression Screening Assessment 0 [facility] Work Phone: Functional Status Date Assessment Result Facility 07-25-2014 Are you deaf, or do you have serious difficulty hearing No 07/25/2014 8:19 AM Jemma Porras LPN No [facility] 07-25-2014 Are you blind, or do you have serious difficulty seeing, even when wearing glasses No 07/25/2014 8:19 AM Jemma Porras LPN No [facility] 07-25-2014 Do you have serious difficulty walking or climbing stairs No 07/25/2014 8:19 AM Jemma Porras LPN No [facility] 07-25-2014 Do you have difficul ty dressing or bathing No 07/25/2014 8:19 AM Jemma Porras LPN No [facility] 07-25-2014 Because of a physica l, mental, or emotional condition, do you have difficulty doing errands alone such as visiting a physician's office or shopping No 07/25/2014 8:19 AM Jemma Porras LPN No [facility] Mental Status Date Assessment Result Facility 07-25-2014 Because of a physica l, mental, or emotional condition, do you have serious difficulty concentrating, remembering, or making decisions No 07/25/2014 8:19 AM EDT Jemma Phillips LPN No [facility] Clinical Notes 06-11-2012 to 07-20-2024 Macey Neri APRN.AGILE COACH - 06/14/2024 9:00 AM EDTPatient InstructionsPraisler- Rafaela Lackey APRN.AGILE COACH - 02/27/2024 12:20 PM ESTTelephone Encounter - Ronna Mesa MA - 02/21/2024 9:31 AM EST Note Date & Type Note Facility 07-20-2024 Radiology Diagnostic study note [facility] Services [address] [place] [address] Abdomen Single View MR#: [id number] Acct: [id number] Name: VALENTINA DONAHUE Rep #: [id number] : 1965 F 58 From: Russ Bryant MD PCP: Dr. Agnieszka Bruce MD Status: RE G CLI Study:Abdomen Single View Date of Exam: 07/19/24 Exam# [id number] Ordering Dr: Ann-Marie Huffman MD PROCEDURE: ABDOMEN SINGLE VIEW 07/19/2024 REASON FOR EXAM: KUB- KIDNEY STONE TECHNIQUE: Single view abdomen. 2 images to include the entire abdomen and pelvis FINDINGS: No abdominal calcification identified concerning for a renal stone. Left pelvicphlebolith incidental. Visualized lung bases appear unremarkable. No gaseous distention of bowel or evidence of mass effect. RAD/Abdomen Single View IMPRESSION: No abdominal calcification identified concerning for a renal stone. Reading Location: [id number] CC: Dr. Ann-Marie Huffman MD; Dr. Agnieszka Bruce MD ~ Manager Adult: Signed [facility] 06-14-2024 Note HNO ID: [id number] Author: MACEY NERI APRN.AGILE COACH Service: ? Author Type: Nurse Practitioner Type: Progress Notes Filed: 06/14/2024 09:29 Note Text: SUBJECTIVE Valentina Donahue is a 58 year old female here today for a check up on her medical problems. Chief Complaint Patient presents with: F/U 6 months HPI Valentina L Godfrey is a 58 year old female. She is an established patient of Agnieszka Bruce MD. She presents today for her 6 month follow up. She reports having some tiredness. Trouble falling asleep. Trazodone not helping much. Asthma doing okay, has albuterol for as needed. Blood pressure stable. Reviewed labs. Hgba1c stable. Her medications were reviewed today and her list is now up to date. Medications Current Outpatient Medications Medication Sig albuterol HFA (PROAIR HFA) 90 mcg/actuation inhaler Inhale 2 Puffs as instructed every 6 hours as needed. losartan (COZAAR) 25 mg tablet Take 1 tablet by mouth once daily. carbidopa-levodopa (SINEMET 10-100) 10-100 mg per tablet Take 1 tablet by mouth once daily. ibuprofen (MOTRIN) 200 mg tablet Take 2-3 tablets by mouth twice daily as needed for Pain. MULTIVITAMIN TAB Take by mouth. traZODone (DESYREL) 100 mg tablet Take 1 tablet by mouth daily at bedtime. take 1/2 tablet by mouth at bedtime No current facility-administered medications for this visit. ALLERGIES Allergen Reactions Aleve [Naproxen Sod* Amoxicillin Benadryl [Diphenhyd* Rash Ceftin [Cefuroxime * Erythromycin Guaifenesin Intolerance Humibid Lisinopril Other: See Comments lightheadedness Macrobid [Nitrofura* Nortriptyline Penicillins Rash Semprex-D [Acrivast* ACTIVE PROBLEM LIST Elevated Blood Pressure Reading - 01/28/2022 Stress Incontinence - 04/04/2019 Obesity, Class II, Bmi 35-39.9 - 09/20/2018 Trigger Ring Finger of Right Hand - 04/07/2016 Postmenopausal Atrophic Vaginitis - 02/05/2015 Insomnia - 05/20/2012 Rls (Restless Legs Syndrome) Impaired Fasting Glucose - 07/15/2009 Social History Tobacco Use Smoking status: Never Smokeless tobacco: Never Vaping Use Vaping status: Never Used Substance Use Topics Alcohol use: Yes Comment: Occasionally Drug use: No Review of Systems Constitutional: Negative. Respiratory: Negative. Cardiovascular: Negative. OBJECTIVE BP 128/72 Pulse 87 Wt 173 lb 8 oz (78.7kg) SpO2 97% LMP 08/29/2010 Physical Exam Vitals and nursing note reviewed. Constitutional: General: She is awake. She is not in acute distress. Appearance: Normal appearance. She is well-developed and well-groomed. She is not ill-appearing, toxic-appearing or diaphoretic. HENT: Head: Normocephalic. Right Ear: External ear normal. Left Ear: External ear normal. Nose: Nose normal. Eyes: General: Vision grossly intact. Conjunctiva/sclera: Conjunctivae normal. Pupils: Pupils are equal, round, and reactive to light. Neck: Vascular: No JVD. Trachea: Trachea normal. Cardiovascular: Rate and Rhythm: Normal rate and regular rhythm. Pulses: Normal pulses. Heart sounds: Normal heart sounds. No murmur heard. Pulmonary: Effort: Pulmonary effort is normal. No accessory muscle usage, prolonged expiration or respiratory distress. Breath sounds: Normal breath sounds. Musculoskeletal: Cervical back: Neck supple. Skin: General: Skin is warm and dry. Capillary Refill: Capillary refill takes less than 2 seconds. Neurological: General: No focal deficit present. Mental Status: She is alert and oriented to person, place, and time. Mental status is at baseline. Psychiatric: Attention and Perception: Attention and perception normal. Mood and Affect: Mood and affect normal. Speech: Speech normal. Behavior: Behavior normal. Behavior is cooperative. Thought Content: Thought content normal. Cognition and Memory: Cognition and memory normal. Judgment: Judgment normal. ASSESSMENT/PLAN: 1. Psychophysiological insomnia - ICD9: 307.42, ICD10: F51.04 (primary diagnosis) Trial an increase in Trazodone. - TRAZODONE 100 MG TABLET 2. Mild intermittent asthma without complication (HCC) - ICD9: 493.90, ICD10: J45.20 - Mild intermittent asthma stable - Continue current medications - Avoidance of triggers recommended 3. Primary hypertension - ICD9: 401.9, ICD10: I10 - Controlled - Continue current medications - Recommend home blood pressure monitoring, to bring results to next visit - Encouraged sodium restriction, DASH or Mediterranean diet - Recommend regular aerobic exercise 4. Impaired fasting glucose - ICD9: 790.21, ICD10: R73.01 Stable. Reviewed labs. 5. Screening for depression - ICD9: V79.0, ICD10: Z13.31 - DEPRESSION SCREENING 6. Encounter for screening examination for other mental health and behavioral disorders - ICD9: V79.8, ICD10: Z13.39 - ANXIETY SCREENING 7. Encounter for screening mammogram for breast cancer - ICD9: V76.12, ICD10: Z12.31 - M (more content not included)... [facility] 06-14-2024 History of Present illness Narrative SUBJECTIVE Valentina Donahue is a 58 year old female here today for a check up on her medical problems. Chief Complaint Patient presents with: F/U 6 months HPI Valentina Donahue is a 58 year old female. She is an established patient of Agnieszka Bruce MD. She presents today for her 6 month follow up. She reports having some tiredness. Trouble falling asleep. Trazodone not helping much. Asthma doing okay, has albuterol for as needed. Blood pressure stable. Reviewed labs. Hgba1c stable. Her medications were reviewed today and her list is now up to date. Medications Current Outpatient Medications Medication Sig albuterol HFA (PROAIR HFA) 90 mcg/actuation inhaler Inhale 2 Puffs as instructed every 6 hours as needed. losartan (COZAAR) 25 mg tablet Take 1 tablet by mouth once daily. carbidopa-levodopa (SINEMET 10-100) 10-100 mg per tablet Take 1 tablet by mouth once daily. ibuprofen (MOTRIN) 200 mg tablet Take 2-3 tablets by mouth twice daily as needed for Pain. MULTIVITAMIN TAB Take by mouth. traZODone (DESYREL) 100 mg tablet Take 1 tablet by mouth daily at bedtime. take 1/2 tablet by mouth at bedtime No current facility-administered medications for this visit. ALLERGIES Allergen Reactions Aleve [Naproxen Sod* Amoxicillin Benadryl [Diphenhyd* Rash Ceftin [Cefuroxime * Erythromycin Guaifenesin Intolerance Humibid Lisinopril Other: See Comments lightheadedness Macrobid [Nitrofura* Nortriptyline Penicillins Rash Semprex-D [Acrivast* ACTIVE PROBLEM LIST Elevated Blood Pressure Reading - 01/28/2022 Stress Incontinence - 04/04/2019 Obesity, Class II, Bmi 35-39.9 - 09/20/2018 Trigger Ring Finger of Right Hand - 04/07/2016 Postmenopausal Atrophic Vaginitis - 02/05/2015 Insomnia - 05/20/2012 Rls (Restless Legs Syndrome) Impaired Fasting Glucose - 07/15/2009 Social History Tobacco Use Smoking status: Never Smokeless tobacco: Never Vaping Use Vaping status: Never Used Substance Use Topics Alcohol use: Yes Comment: Occasionally Drug use: No Review of Systems Constitutional: Negative. Respiratory: Negative. Cardiovascular: Negative. OBJECTIVE BP 128/72 Pulse 87 Wt 173 lb 8 oz (78.7kg) SpO2 97% LMP 08/29/2010 Physical Exam Vitals and nursing note reviewed. Constitutional: General: She is awake. She is not in acute distress. Appearance: Normal appearance. She is well-developed and well-groomed. She is not ill-appearing, toxic-appearing or diaphoretic. HENT: Head: Normocephalic. Right Ear: External ear normal. Left Ear: External ear normal. Nose: Nose normal. Eyes: General: Vision grossly intact. Conjunctiva/sclera: Conjunctivae normal. Pupils: Pupils are equal, round, and reactive to light. Neck: Vascular: No JVD. Trachea: Trachea normal. Cardiovascular: Rate and Rhythm: Normal rate and regular rhythm. Pulses: Normal pulses. Heart sounds: Normal heart sounds. No murmur heard. Pulmonary: Effort: Pulmonary effort is normal. No accessory muscle usage, prolonged expiration or respiratory distress. Breath sounds: Normal breath sounds. Musculoskeletal: Cervical back: Neck supple. Skin: General: Skin is warm and dry. Capillary Refill: Capillary refill takes less than 2 seconds. Neurological: General: No focal deficit present. Mental Status: She is alert and oriented to person, place, and time. Mental status is at baseline. Psychiatric: Attention and Perception: Attention and perception normal. Mood and Affect: Mood and affect normal. Speech: Speech normal. Behavior: Behavior normal. Behavior is cooperative. Thought Content: Thought content normal. Cognition and Memory: Cognition and memory normal. Judgment: Judgment normal. ASSESSMENT/PLAN: 1. Psychophysiological insomnia - ICD9: 307.42, ICD10: F51.04 (primary diagnosis) Trial an increase in Trazodone. - TRAZODONE 100 MG TABLET 2. Mild intermittent asthma without complication (HCC) - ICD9: 493.90, ICD10: J45.20 - Mild intermittent asthma stable - Continue current medications - Avoidance of triggers recommended 3. Primary hypertension - ICD9: 401.9, ICD10: I10 - Controlled - Continue current medications - Recommend home blood pressure monitoring, to bring results to next visit - Encouraged sodium restriction, DASH or Mediterranean diet - Recommend regular aerobic exercise 4. Impaired fasting glucose - ICD9: 790.21, ICD10: R73.01 Stable. Reviewed labs. 5. Screening for depression - ICD9: V79.0, ICD10: Z13.31 - DEPRESSION SCREENING 6. Encounter for screening examination for other mental health and behavioral disorders - ICD9: V79.8, ICD10: Z13.39 - ANXIETY SCREENING 7. Encounter for screening mammogram for breast cancer - ICD9: V76.12, ICD10: Z12.31 - ROGELIO SCREENING W MICHAEL 8. Encounter for immunization - ICD9: V03.89, ICD10: Z23 - PNEUMOCOCCAL VACCINE, 20 VALENT (PREVNAR 20) Portions of this note have been entered by ancillary staff. I have reviewed and when necessary edited, so that they are an adequate record of my encounter with this patient Please note that parts of this document were created using voice recognition software and therefore may contain grammatical errors. Patient verbalizes understanding of instructions from today's visit and in agreement with treatment plan. Questions answered. Agrees to call the office if questions, concerns of issues with acute symptoms not improving or if they worsen. See diagnoses and orders for additional plan(s). Allergies and medications were reviewed, list was updated, and refills given if needed. Past medical, surgical, social, and family history reviewed and updated as appropriate. Encouraged proper diet & exercise as well as compliance with taking medications. Age-appropriate health preventative measures were discussed. Return if symptoms worsen or fail to improve, for Keep next scheduled appointment.. Macey Neri APRN-SANDY documented in this encounter [facility] 02-27-2024 Instructions Rafaela Hand APRN.CNP - 02/27/2024 12:21 PM EST ASSESSMENT/PLAN: 1. Sore throat - ICD9: 462, ICD10: J02.9 (primary diagnosis) - Group A strep molecular testing positive - Discussed supportive care treatment with fluids, rest and analgesia. - STREP A MOLECULAR (POC) 2. Strep throat - ICD9: 034.0, ICD10: J02.0 - Zithromax for PCN allergy. - Discussed supportive care treatment with fluids, rest and analgesia. - The patient may also use warm salt water gargles, throat lozenges and/or OTC throat spray as needed. - Contagious dz precautions discussed- including considered contagious until on antibiotics for 24 hours - Call back if drooling, increased temperature, symptoms of dehydration and/or still sick in one week - AZITHROMYCIN 500 MG TABLET 3. Sinobronchitis - ICD9: 473.9, 490, ICD10: J32.9, J40 - Will begin treatment with as per antibiotic as written, see orders - Supportive care with plenty of fluids, rest, and analgesia prn. - AZITHROMYCIN 500 MG TABLET - PREDNISONE 20 MG TABLET - Follow-up with your PCP in 3-5 days if symptoms have not improved or sooner if symptoms worsen - Discussed red flags and need for immediate medical evaluation if any occur. - Discussed supportive care treatment with fluids, rest and analgesia. - Discussed expected course of illness Rafaela Hand APRN.AGILE COACH What is strep throat? Strep throat is an infection caused by a specific type of bacteria, Streptococcus. When your child has a strep throat, the tonsils are usually very inflamed, and the inflammation may affect the surrounding part of the throat as well. Symptoms Strep throat is caused by a bacterium called Streptococcus pyogenes. To some extent, the symptoms of strep throat depend on the child s age. Infants with strep infections may have only a low fever and a thickened or bloody nasal discharge. Toddlers (ages one to three) also may have a thickened or bloody nasal discharge with a fever. Such children are usually quite cranky, have no appetite, and often have swollen glands in the neck. Sometimes toddlers will complain of tummy pain instead of a sore throat. Children over three years of age with strep are often more ill; they may have an extremely painful throat, fever over 102 degrees Fahrenheit (38.9 degrees Celsius), swollen glands in the neck, and pus on the tonsils. It s important to be able to distinguish a strep throat from a viral sore throat, because strep infections are treated with antibiotics. When to call the bullard machine operator If your child has a sore throat that persists (not one that goes away after her first drink in the morning), whether or not it is accompanied by fever, headache, stomachache, or extreme fatigue, you should call your bullard machine operator. That call should be made even more urgently if your child seems extremely ill, or if she has difficulty breathing or extreme trouble swallowing (causing her to drool). This may indicate a more serious infection. Treatment If the strep test shows that your child does have strep throat, your bullard machine operator will prescribe an antibiotic to be taken by mouth or by injection. If your child is given the oral medication, it s very important that she take it for the full course, as prescribed, even if the symptoms get better or go away. If a child s strep throat is not treated with antibiotics, or if she doesn t complete the treatment, the infection may worsen or spread to other parts of her body, leading to conditions such as abscesses of the tonsils or kidney problems. Untreated strep infections also can lead to rheumatic fever, a disease that affects the heart. However, rheumatic fever is rare in the [place] and in children under five years old. Prevention Most types of throat infections are contagious, being passed primarily through the air on droplets of moisture or on the hands of infected children or adults. For that reason, it makes sense to keep your child away from people who have symptoms of this condition. However, most people are contagious before their first symptoms appear, so often there s really no practical way to prevent your child from doc the disease. In the past when a child had several sore throats, her tonsils might have been removed in an attempt to prevent further infections. But this operation, called a tonsillectomy, is recommended today only for the most severely affected children. Even in difficult cases, where there is repeated strep throat, antibiotic treatment is usually the best solution. documented in this encounter [facility] 02-27-2024 Note HNO ID: [id number] Author: RAFAELA HAND APRN.AGILE COACH Service: ? Author Type: Nurse Practitioner Type: Progress Notes Filed: 02/27/2024 12:27 Note Text: Subjective Sore Throat Associated symptoms include congestion, coughing and shortness of breath. Pertinent negatives include no diarrhea or vomiting. Valentina Donahue is a 58 year old female who presents with one week of sore throat, chest congestion, sinus congestion and cough. She has not had a fever. Denies known sick contacts. She has been taking mucinex. States her chest hurts with cough and cough is non-productive. Review of Systems Constitutional: Negative for chills, fever and malaise/fatigue. HENT: Positive for congestion and sore throat. Respiratory: Positive for cough, shortness of breath and wheezing. Negative for sputum production. Cardiovascular: Negative. Gastrointestinal: Negative for diarrhea, nausea and vomiting. Musculoskeletal: Negative for myalgias. BP 124/82 Pulse 96 Temp 37.1 ?C (98.7 ?F) (Tympanic) Resp 18 Wt 78.1 kg (172 lb 2.9 oz) LMP 08/29/2010 SpO2 99% BMI 37.92 kg/m? PAST MEDICAL HISTORY Diagnosis Date C. difficile colitis 06/11/2012 Calculus of kidney 07/26/2006 Essential hypertension 01/10/2009 Impaired Fasting Glucose 07/15/2009 Resolved RLS (restless legs syndrome) Trigger ring finger of right hand 04/07/2016 Unspecified Essential Hypertension 01/10/2009 Urinary calculus, unspecified Renal stones PAST SURGICAL HISTORY Procedure Laterality Date ABDOMINAL SURGERY HX APPENDECTOMY HX COLONOSCOPY 04/11/2021 repeat in 5 years INCISE FINGER TENDON SHEATH Right 07/23/2016 Right ring trigger finger release LAPAROSCOPIC APPENDECTOMY 10/27/2008 PAST SURGICAL HISTORY OF wisdom teeth PAST SURGICAL HISTORY OF meredith excised from nose PAST SURGICAL HISTORY OF 2005 kidney stone removed ALLERGIES Aleve [Naproxen Sodium], Amoxicillin, Benadryl [Diphenhydramine Hcl], Ceftin [Cefuroxime Axetil], Erythromycin, Guaifenesin, Lisinopril, Macrobid [Nitrofurantoin Monohyd/M-Cryst], Nortriptyline, Penicillins, and Semprex-D [Acrivastine-Pseudoephedrine] MEDICATIONS albuterol HFA (PROAIR HFA) 90 mcg/actuation inhaler Inhale 2 Puffs as instructed every 6 hours as needed. losartan (COZAAR) 25 mg tablet Take 1 tablet by mouth once daily. carbidopa-levodopa (SINEMET 10-100) 10-100 mg per tablet Take 1 tablet by mouth once daily. traZODone (DESYREL) 50 mg tablet take 1/2 tablet by mouth at bedtime tamsulosin (FLOMAX) 0.4 mg Take 1 capsule by mouth once daily for 16 days. ibuprofen (MOTRIN) 200 mg tablet Take 2-3 tablets by mouth twice daily as needed for Pain. MULTIVITAMIN TAB Take by mouth. azithromycin (ZITHROMAX) 500 mg tablet Take 1 tablet by mouth once daily for 5 days. predniSONE (DELTASONE) 20 mg tablet Take 2 tablets by mouth once daily for 4 days. FAMILY HISTORY Problem Relation Age of Onset Hypertension Mother Cancer Mother Ovarian Osteoporosis Mother Heart Father pacemaker Hypertension Father Skin Cancer Sister not sure what type; had 2 skin cancer lesions excised Heart Maternal Grandmother from massive heart attack Social History Tobacco Use Smoking status: Never Smokeless tobacco: Never Vaping Use Vaping status: Never Used Substance Use Topics Alcohol use: Yes Comment: Occasionally Drug use: No Objective Physical Exam Vitals and nursing note reviewed. Constitutional: General: She is not in acute distress. Appearance: Normal appearance. She is not ill-appearing. HENT: Right Ear: Tympanic membrane, ear canal and external ear normal. Left Ear: Tympanic membrane, ear canal and external ear normal. Nose: Mucosal edema, congestion and rhinorrhea present. Mouth/Throat: Pharynx: Uvula midline. Posterior oropharyngeal erythema present. No oropharyngeal exudate. Cardiovascular: Rate and Rhythm: Normal rate and regular rhythm. Heart sounds: Normal heart sounds. Pulmonary: Effort: Pulmonary effort is normal. No respiratory distress. Breath sounds: Examination of the right-upper field reveals wheezing. Examination of the left-upper field reveals wheezing. Wheezing present. No rales. Musculoskeletal: Cervical back: Neck supple. Lymphadenopathy: Cervical: No cervical adenopathy. Skin: General: Skin is warm and dry. Findings: No erythema or rash. Neurological: Mental Status: She is alert. ASSESSMENT/PLAN: 1. Sore throat - ICD9: 462, ICD10: J02.9 (primary diagnosis) - Group A strep molecular testing positive - Discussed supportive care treatment with fluids, rest and analgesia. - STREP A MOLECULAR (POC) 2. Strep throat - ICD9: 034.0, ICD10: J02.0 - Zithromax for PCN allergy. - Discussed supportive care treatment with fluids, rest and analgesia. - The patient may also use warm salt water gargles, throat lozenges and/or OTC throat spray as needed. - Contagious dz precaution (more content not included)... [facility] 02-27-2024 History of Present illness Narrative Subjective Sore Throat Associated symptoms include congestion, coughing and shortness of breath. Pertinent negatives include no diarrhea or vomiting. Valentina Donahue is a 58 year old female who presents with one week of sore throat, chest congestion, sinus congestion and cough. She has not had a fever. Denies known sick contacts. She has been taking mucinex. States her chest hurts with cough and cough is non-productive. Review of Systems Constitutional: Negative for chills, fever and malaise/fatigue. HENT: Positive for congestion and sore throat. Respiratory: Positive for cough, shortness of breath and wheezing. Negative for sputum production. Cardiovascular: Negative. Gastrointestinal: Negative for diarrhea, nausea and vomiting. Musculoskeletal: Negative for myalgias. BP 124/82 Pulse 96 Temp 37.1 C (98.7 F) (Tympanic) Resp 18 Wt 78.1 kg (172 lb 2.9 oz) LMP 08/29/2010 SpO2 99% BMI 37.92 kg/m PAST MEDICAL HISTORY Diagnosis Date C. difficile colitis 06/11/2012 Calculus of kidney 07/26/2006 Essential hypertension 01/10/2009 Impaired Fasting Glucose 07/15/2009 Resolved RLS (restless legs syndrome) Trigger ring finger of right hand 04/07/2016 Unspecified Essential Hypertension 01/10/2009 Urinary calculus, unspecified Renal stones PAST SURGICAL HISTORY Procedure Laterality Date ABDOMINAL SURGERY HX APPENDECTOMY HX COLONOSCOPY 04/11/2021 repeat in 5 years INCISE FINGER TENDON SHEATH Right 07/23/2016 Right ring trigger finger release LAPAROSCOPIC APPENDECTOMY 10/27/2008 PAST SURGICAL HISTORY OF wisdom teeth PAST SURGICAL HISTORY OF meredith excised from nose PAST SURGICAL HISTORY OF 2005 kidney stone removed ALLERGIES Aleve [Naproxen Sodium], Amoxicillin, Benadryl [Diphenhydramine Hcl], Ceftin [Cefuroxime Axetil], Erythromycin, Guaifenesin, Lisinopril, Macrobid [Nitrofurantoin Monohyd/M-Cryst], Nortriptyline, Penicillins, and Semprex-D [Acrivastine-Pseudoephedrine] MEDICATIONS albuterol HFA (PROAIR HFA) 90 mcg/actuation inhaler Inhale 2 Puffs as instructed every 6 hours as needed. losartan (COZAAR) 25 mg tablet Take 1 tablet by mouth once daily. carbidopa-levodopa (SINEMET 10-100) 10-100 mg per tablet Take 1 tablet by mouth once daily. traZODone (DESYREL) 50 mg tablet take 1/2 tablet by mouth at bedtime tamsulosin (FLOMAX) 0.4 mg Take 1 capsule by mouth once daily for 16 days. ibuprofen (MOTRIN) 200 mg tablet Take 2-3 tablets by mouth twice daily as needed for Pain. MULTIVITAMIN TAB Take by mouth. azithromycin (ZITHROMAX) 500 mg tablet Take 1 tablet by mouth once daily for 5 days. predniSONE (DELTASONE) 20 mg tablet Take 2 tablets by mouth once daily for 4 days. FAMILY HISTORY Problem Relation Age of Onset Hypertension Mother Cancer Mother Ovarian Osteoporosis Mother Heart Father pacemaker Hypertension Father Skin Cancer Sister not sure what type; had 2 skin cancer lesions excised Heart Maternal Grandmother from massive heart attack Social History Tobacco Use Smoking status: Never Smokeless tobacco: Never Vaping Use Vaping status: Never Used Substance Use Topics Alcohol use: Yes Comment: Occasionally Drug use: No Objective Physical Exam Vitals and nursing note reviewed. Constitutional: General: She is not in acute distress. Appearance: Normal appearance. She is not ill-appearing. HENT: Right Ear: Tympanic membrane, ear canal and external ear normal. Left Ear: Tympanic membrane, ear canal and external ear normal. Nose: Mucosal edema, congestion and rhinorrhea present. Mouth/Throat: Pharynx: Uvula midline. Posterior oropharyngeal erythema present. No oropharyngeal exudate. Cardiovascular: Rate and Rhythm: Normal rate and regular rhythm. Heart sounds: Normal heart sounds. Pulmonary: Effort: Pulmonary effort is normal. No respiratory distress. Breath sounds: Examination of the right-upper field reveals wheezing. Examination of the left-upper field reveals wheezing. Wheezing present. No rales. Musculoskeletal: Cervical back: Neck supple. Lymphadenopathy: Cervical: No cervical adenopathy. Skin: General: Skin is warm and dry. Findings: No erythema or rash. Neurological: Mental Status: She is alert. ASSESSMENT/PLAN: 1. Sore throat - ICD9: 462, ICD10: J02.9 (primary diagnosis) - Group A strep molecular testing positive - Discussed supportive care treatment with fluids, rest and analgesia. - STREP A MOLECULAR (POC) 2. Strep throat - ICD9: 034.0, ICD10: J02.0 - Zithromax for PCN allergy. - Discussed supportive care treatment with fluids, rest and analgesia. - The patient may also use warm salt water gargles, throat lozenges and/or OTC throat spray as needed. - Contagious dz precautions discussed- including considered contagious until on antibiotics for 24 hours - Call back if drooling, increased temperature, symptoms of dehydration and/or still sick in one week - AZITHROMYCIN 500 MG TABLET 3. Sinobronchitis - ICD9: 473.9, 490, ICD10: J32.9, J40 - Will begin treatment with as per antibiotic as written, see orders - Supportive care with plenty of fluids, rest, and analgesia prn. - AZITHROMYCIN 500 MG TABLET - PREDNISONE 20 MG TABLET - Follow-up with your PCP in 3-5 days if symptoms have not improved or sooner if symptoms worsen - Discussed red flags and need for immediate medical evaluation if any occur. - Discussed supportive care treatment with fluids, rest and analgesia. - Discussed expected course of illness Rafaela Hand APRN.AGILE COACH documented in this encounter [facility] 02-21-2024 Telephone encounter Note Order faxed to [facility]. [facility] 02-21-2024 Miscellaneous Notes Order faxed to [facility]. Filed consult order Fax as requested Patient came in stating they would like a referral to pulmonology for [facility]. 02/11/24 : Wong Abraham documented in this encounter [facility] 02-20-2024 Telephone encounter Note Filed consult order Fax as requested [facility] 02-11-2024 Telephone encounter Note Patient came in stating they would like a referral to pulmonology for [facility]. 02/11/24 : Wong Abraham [facility] 12-20-2023 Note HNO ID: [id number] Author: MONIKA BALES APRN.AGILE COACH Service: ? Author Type: Nurse Practitioner Type: Progress Notes Filed: 12/20/2023 16:26 Note Text: CC: Patient presents with: Ear Pain: Bilateral x 5 days Sore throat x 3 days HPI: Valentina Donahue is a 58 year old female who presents to the office with complaint of sore throat and ear symptoms for a few days. Symptoms are worsening Associated symptoms includes sore throat. Denies fever, wheezing, dyspnea, nausea, vomiting , and diarrhea. Treatments tried include nothing so far. with no relief of symptoms. Sick contacts: unknown. History of asthma, frequent episodes of bronchitis, chronic bronchitis, bronchiectasis or COPD: No Smoker: No Seasonal/environmental allergies: No The ROS is otherwise negative. The patient's pmh, medications, allergies, and past visits are reviewed. PHYSICAL EXAM: BP 126/82 Pulse 90 Temp 36.8 ?C (98.2 ?F) (Tympanic) Resp 14 Wt 80 kg (176 lb 5.9 oz) LMP 08/29/2010 SpO2 95% BMI 38.84 kg/m? General appearance: alert, cooperative, pleasant, in no acute distress Head: Normocephalic Eyes: EOM's intact, conjunctiva pink and moist, no icterus, sclera white, non-injected Ears: Right ear: External ear/canal- Normal, TM - clear with good landmarks. Left ear: External ear/canal- Normal, TM - clear with good landmarks Oropharynx:moderate erythema, without exudates present Heart: Negative. RRR without obvious murmur, gallop, or rubs. No ectopy. Lungs: clear to auscultation, without rales or wheeze, good air exchange PAST MEDICAL HISTORY Diagnosis Date C. difficile colitis 06/11/2012 Calculus of kidney 07/26/2006 Essential hypertension 01/10/2009 Impaired Fasting Glucose 07/15/2009 Resolved RLS (restless legs syndrome) Trigger ring finger of right hand 04/07/2016 Unspecified Essential Hypertension 01/10/2009 Urinary calculus, unspecified Renal stones PAST SURGICAL HISTORY Procedure Laterality Date ABDOMINAL SURGERY HX APPENDECTOMY HX COLONOSCOPY 04/11/2021 repeat in 5 years INCISE FINGER TENDON SHEATH Right 07/23/2016 Right ring trigger finger release LAPAROSCOPIC APPENDECTOMY 10/27/2008 PAST SURGICAL HISTORY OF wisdom teeth PAST SURGICAL HISTORY OF meredith excised from nose PAST SURGICAL HISTORY OF 2005 kidney stone removed ALLERGIES Aleve [Naproxen Sodium], Amoxicillin, Benadryl [Diphenhydramine Hcl], Ceftin [Cefuroxime Axetil], Erythromycin, Guaifenesin, Lisinopril, Macrobid [Nitrofurantoin Monohyd/M-Cryst], Nortriptyline, Penicillins, and Semprex-D [Acrivastine-Pseudoephedrine] MEDICATIONS albuterol HFA (PROAIR HFA) 90 mcg/actuation inhaler Inhale 2 Puffs as instructed every 6 hours as needed. losartan (COZAAR) 25 mg tablet Take 1 tablet by mouth once daily. carbidopa-levodopa (SINEMET 10-100) 10-100 mg per tablet Take 1 tablet by mouth once daily. traZODone (DESYREL) 50 mg tablet take 1/2 tablet by mouth at bedtime ibuprofen (MOTRIN) 200 mg tablet Take 2-3 tablets by mouth twice daily as needed for Pain. MULTIVITAMIN TAB Take by mouth. tamsulosin (FLOMAX) 0.4 mg Take 1 capsule by mouth once daily for 16 days. FAMILY HISTORY Problem Relation Age of Onset Hypertension Mother Cancer Mother Ovarian Osteoporosis Mother Heart Father pacemaker Hypertension Father Skin Cancer Sister not sure what type; had 2 skin cancer lesions excised Heart Maternal Grandmother from massive heart attack Social History Tobacco Use Smoking status: Never Smokeless tobacco: Never Vaping Use Vaping status: Never Used Substance Use Topics Alcohol use: Yes Comment: Occasionally Drug use: No ASSESSMENT/PLAN: 1. Sore throat - ICD9: 462, ICD10: J02.9 - STREP A MOLECULAR (POC) - neg Budesonide ordered Prescription instructions reviewed with patient as applicable. Potential red flag symptoms discussed with the patient. Reviewed appropriate action plan to take if red flag symptoms occur. Patient agreeable to treatment plan. Monika Bales APRN.[facility] 12-20-2023 History of Present illness Narrative CC: Patient presents with: Ear Pain: Bilateral x 5 days Sore throat x 3 days HPI: Valentina Donahue is a 58 year old female who presents to the office with complaint of sore throat and ear symptoms for a few days. Symptoms are worsening Associated symptoms includes sore throat. Denies fever, wheezing, dyspnea, nausea, vomiting , and diarrhea. Treatments tried include nothing so far. with no relief of symptoms. Sick contacts: unknown. History of asthma, frequent episodes of bronchitis, chronic bronchitis, bronchiectasis or COPD: No Smoker: No Seasonal/environmental allergies: No The ROS is otherwise negative. The patient's pmh, medications, allergies, and past visits are reviewed. PHYSICAL EXAM: BP 126/82 Pulse 90 Temp 36.8 C (98.2 F) (Tympanic) Resp 14 Wt 80 kg (176 lb 5.9 oz) LMP 08/29/2010 SpO2 95% BMI 38.84 kg/m General appearance: alert, cooperative, pleasant, in no acute distress Head: Normocephalic Eyes: EOM's intact, conjunctiva pink and moist, no icterus, sclera white, non-injected Ears: Right ear: External ear/canal- Normal, TM - clear with good landmarks. Left ear: External ear/canal- Normal, TM - clear with good landmarks Oropharynx:moderate erythema, without exudates present Heart: Negative. RRR without obvious murmur, gallop, or rubs. No ectopy. Lungs: clear to auscultation, without rales or wheeze, good air exchange PAST MEDICAL HISTORY Diagnosis Date C. difficile colitis 06/11/2012 Calculus of kidney 07/26/2006 Essential hypertension 01/10/2009 Impaired Fasting Glucose 07/15/2009 Resolved RLS (restless legs syndrome) Trigger ring finger of right hand 04/07/2016 Unspecified Essential Hypertension 01/10/2009 Urinary calculus, unspecified Renal stones PAST SURGICAL HISTORY Procedure Laterality Date ABDOMINAL SURGERY HX APPENDECTOMY HX COLONOSCOPY 04/11/2021 repeat in 5 years INCISE FINGER TENDON SHEATH Right 07/23/2016 Right ring trigger finger release LAPAROSCOPIC APPENDECTOMY 10/27/2008 PAST SURGICAL HISTORY OF wisdom teeth PAST SURGICAL HISTORY OF meredith excised from nose PAST SURGICAL HISTORY OF 2005 kidney stone removed ALLERGIES Aleve [Naproxen Sodium], Amoxicillin, Benadryl [Diphenhydramine Hcl], Ceftin [Cefuroxime Axetil], Erythromycin, Guaifenesin, Lisinopril, Macrobid [Nitrofurantoin Monohyd/M-Cryst], Nortriptyline, Penicillins, and Semprex-D [Acrivastine-Pseudoephedrine] MEDICATIONS albuterol HFA (PROAIR HFA) 90 mcg/actuation inhaler Inhale 2 Puffs as instructed every 6 hours as needed. losartan (COZAAR) 25 mg tablet Take 1 tablet by mouth once daily. carbidopa-levodopa (SINEMET 10-100) 10-100 mg per tablet Take 1 tablet by mouth once daily. traZODone (DESYREL) 50 mg tablet take 1/2 tablet by mouth at bedtime ibuprofen (MOTRIN) 200 mg tablet Take 2-3 tablets by mouth twice daily as needed for Pain. MULTIVITAMIN TAB Take by mouth. tamsulosin (FLOMAX) 0.4 mg Take 1 capsule by mouth once daily for 16 days. FAMILY HISTORY Problem Relation Age of Onset Hypertension Mother Cancer Mother Ovarian Osteoporosis Mother Heart Father pacemaker Hypertension Father Skin Cancer Sister not sure what type; had 2 skin cancer lesions excised Heart Maternal Grandmother from massive heart attack Social History Tobacco Use Smoking status: Never Smokeless tobacco: Never Vaping Use Vaping status: Never Used Substance Use Topics Alcohol use: Yes Comment: Occasionally Drug use: No ASSESSMENT/PLAN: 1. Sore throat - ICD9: 462, ICD10: J02.9 - STREP A MOLECULAR (POC) - neg Budesonide ordered Prescription instructions reviewed with patient as applicable. Potential red flag symptoms discussed with the patient. Reviewed appropriate action plan to take if red flag symptoms occur. Patient agreeable to treatment plan. Monika Bales APRN.AGILE COACH documented in this encounter [facility] 12-08-2023 Instructions Agnieszka Bruce MD - 12/08/2023 10:37 AM EDT - Continue taking current medications as prescribed: - Sinemet for restless legs. - Losartan for blood pressure. - Trazodone, half a tablet at bedtime for sleep. - Multivitamin daily. - Tamsulosin as needed for kidney stones. - Albuterol inhaler refill sent to the pharmacy; use as needed for asthma. - Flonase is available [id number]; use as needed for allergies. - Drink 6-8 cups of water daily to stay hydrated. - Drink water before lab tests to ensure accurate results. - Maintain a healthy diet, focusing on vegetables and avoiding deep-fried foods. - Limit snacking; aim for healthy snacks 80% of the time. - Next follow-up appointment in 6 months (May). - Complete fasting lab tests, including cholesterol and A1c, one week before the next appointment. documented in this encounter [facility] 12-08-2023 Note HNO ID: [id number] Author: AGNIESZKA BRUCE MD Service: ? Author Type: Physician Type: Progress Notes Filed: 12/08/2023 10:42 Note Text: This note was created using [employer]. Subjective Valentina Donahue is a 58 year old female. Patient presents with: F/U 6 months: Labs prior SUBJECTIVE: Valentina Donahue is a 58 year old year old lady here today for 6 month follow up appointment for review of medical conditions. Decided does not want Hep B vaccine after all. The patient is a 58-year-old female with a history of HTN, asthma, and RLS, presenting for a 6-month follow-up visit. The patient reports significant lifestyle changes over the past six months, including eliminating deep-fried foods, increasing vegetable intake, and reducing snacking, particularly on chips and pretzels. These dietary modifications have resulted in a weight loss of nearly 10 lbs since May. She denies any new symptoms or issues related to her current medications, which include losartan, Sinemet, and trazodone. She is also taking a multivitamin and has tamsulosin on hand for potential kidney stone issues. She has an albuterol inhaler for asthma management but has not needed a refill recently. She is scheduled to see her sumac tanner, Dr. Caldwell, in January. The patient declines the hepatitis B vaccine, stating she does not plan to travel to areas where she might be exposed to the virus. She also reports that her sleep is generally good with the use of trazodone, although her two dogs occasionally disrupt her sleep by waking her up two to three times a night. PAST MEDICAL HISTORY Diagnosis Date C. difficile colitis 06/11/2012 Calculus of kidney 07/26/2006 Essential hypertension 01/10/2009 Impaired Fasting Glucose 07/15/2009 Resolved RLS (restless legs syndrome) Trigger ring finger of right hand 04/07/2016 Unspecified Essential Hypertension 01/10/2009 Urinary calculus, unspecified Renal stones Current Outpatient Medications Medication Sig losartan (COZAAR) 25 mg tablet Take 1 tablet by mouth once daily. carbidopa-levodopa (SINEMET 10-100) 10-100 mg per tablet Take 1 tablet by mouth once daily. traZODone (DESYREL) 50 mg tablet take 1/2 tablet by mouth at bedtime albuterol HFA (PROAIR HFA) 90 mcg/actuation inhaler Inhale 2 Puffs as instructed every 6 hours as needed. ibuprofen (MOTRIN) 200 mg tablet Take 2-3 tablets by mouth twice daily as needed for Pain. MULTIVITAMIN TAB Take by mouth. tamsulosin (FLOMAX) 0.4 mg Take 1 capsule by mouth once daily for 16 days. fluticasone (FLONASE) 50 mcg/actuation nasal spray USE 2 SPRAYS IN EACH NOSTRIL ONCE DAILY. RINSE MOUTH AFTER USE. (Patient not taking: Reported on 12/08/2023) No current facility-administered medications for this visit. Review of Systems Objective BP 110/76 Pulse 79 Temp 36.8 ?C (98.3 ?F) Resp 16 Wt 79.1 kg (174 lb 6.1 oz) LMP 08/29/2010 SpO2 99% BMI 38.41 kg/m? Last 5 Encounter Wt Readings: Date: Wt: 12/08/2023 79.1 kg (174 lb 6.1 oz) 06/15/2023 81 kg (178 lb 9.6 oz) 05/24/2023 83 kg (183 lb) 02/25/2023 81.2 kg (179 lb) 12/09/2022 79.4 kg (175 lb) No waist measurement recorded Estimated body mass index is 38.41 kg/m? as calculated from the following: Height as of 04/07/21: 143.5 cm (4' 8.5). Weight as of this encounter: 79.1 kg (174 lb 6.1 oz). Last 5 Encounter BP Readings: Date: BP: 12/08/2023 110/76 06/15/2023 128/76 05/24/2023 141/84 02/25/2023 146/79 12/09/2022 122/78 Physical Exam Constitutional: Appearance: Normal appearance. She is obese. HENT: Head: Normocephalic. Eyes: Conjunctiva/sclera: Conjunctivae normal. Cardiovascular: Rate and Rhythm: Normal rate and regular rhythm. Heart sounds: Normal heart sounds. Pulmonary: Effort: Pulmonary effort is normal. Breath sounds: Normal breath sounds. Musculoskeletal: Right lower leg: No edema. Left lower leg: No edema. Skin: General: Skin is warm and dry. Neurological: General: No focal deficit present. Mental Status: She is alert and oriented to person, place, and time. Psychiatric: Mood and Affect: Mood normal. Behavior: Behavior normal. Thought Content: Thought content normal. Judgment: Judgment normal. Latest Ref Rng 05/09/2022 12/11/2022 02/25/2023 12/04/2023 WBC 3.70 - 11.00 k/uL 6.41 5.25 7.25 RBC 3.90 - 5.20 m/uL 5.09 4.69 5.19 Hemoglobin 11.5 - 15.5 g/dL 14.4 13.4 14.6 Hematocrit 36.0 - 46.0 % 46.0 42.8 47.4 (H) MCV 80.0 - 100.0 fL 90.4 91.3 91.3 MCH 26.0 - 34.0 pg 28.3 28.6 28.1 MCHC 30.5 - 36.0 g/dL 31.3 31.3 30.8 RDW-CV 11.5 - 15.0 % 13.6 13.8 13.5 Platelet Count 150 - 400 k/uL 353 316 372 MPV 9.0 - 12.7 fL 10.1 10.5 10.8 Neut% % 58.2 65.7 Abs Neut (ANC) 1.45 - 7.50 k/uL 3.73 4.76 Lymph% % 29.6 24.8 Abs Lymph 1.00 - 4.00 k/uL 1.90 1.80 Grand% % 9.8 7.0 Abs Grand <0.87 k/uL 0.63 0.51 Eosin% % 1.4 1.5 Abs Eosin <0.46 k/uL 0.09 0.11 Baso% % 0.8 0.7 Abs Baso <0.11 k/uL 0. (more content not included)... [facility] 12-08-2023 History of Present illness Narrative This note was created using [employer]. Subjective Valentina Donahue is a 58 year old female. Patient presents with: F/U 6 months: Labs prior SUBJECTIVE: Valentina Donahue is a 58 year old year old lady here today for 6 month follow up appointment for review of medical conditions. Decided does not want Hep B vaccine after all. The patient is a 58-year-old female with a history of HTN, asthma, and RLS, presenting for a 6-month follow-up visit. The patient reports significant lifestyle changes over the past six months, including eliminating deep-fried foods, increasing vegetable intake, and reducing snacking, particularly on chips and pretzels. These dietary modifications have resulted in a weight loss of nearly 10 lbs since May. She denies any new symptoms or issues related to her current medications, which include losartan, Sinemet, and trazodone. She is also taking a multivitamin and has tamsulosin on hand for potential kidney stone issues. She has an albuterol inhaler for asthma management but has not needed a refill recently. She is scheduled to see her sumac tanner, Dr. Caldwell, in January. The patient declines the hepatitis B vaccine, stating she does not plan to travel to areas where she might be exposed to the virus. She also reports that her sleep is generally good with the use of trazodone, although her two dogs occasionally disrupt her sleep by waking her up two to three times a night. PAST MEDICAL HISTORY Diagnosis Date C. difficile colitis 06/11/2012 Calculus of kidney 07/26/2006 Essential hypertension 01/10/2009 Impaired Fasting Glucose 07/15/2009 Resolved RLS (restless legs syndrome) Trigger ring finger of right hand 04/07/2016 Unspecified Essential Hypertension 01/10/2009 Urinary calculus, unspecified Renal stones Current Outpatient Medications Medication Sig losartan (COZAAR) 25 mg tablet Take 1 tablet by mouth once daily. carbidopa-levodopa (SINEMET 10-100) 10-100 mg per tablet Take 1 tablet by mouth once daily. traZODone (DESYREL) 50 mg tablet take 1/2 tablet by mouth at bedtime albuterol HFA (PROAIR HFA) 90 mcg/actuation inhaler Inhale 2 Puffs as instructed every 6 hours as needed. ibuprofen (MOTRIN) 200 mg tablet Take 2-3 tablets by mouth twice daily as needed for Pain. MULTIVITAMIN TAB Take by mouth. tamsulosin (FLOMAX) 0.4 mg Take 1 capsule by mouth once daily for 16 days. fluticasone (FLONASE) 50 mcg/actuation nasal spray USE 2 SPRAYS IN EACH NOSTRIL ONCE DAILY. RINSE MOUTH AFTER USE. (Patient not taking: Reported on 12/08/2023) No current facility-administered medications for this visit. Review of Systems Objective BP 110/76 Pulse 79 Temp 36.8 C (98.3 F) Resp 16 Wt 79.1 kg (174 lb 6.1 oz) LMP 08/29/2010 SpO2 99% BMI 38.41 kg/m Last 5 Encounter Wt Readings: Date: Wt: 12/08/2023 79.1 kg (174 lb 6.1 oz) 06/15/2023 81 kg (178 lb 9.6 oz) 05/24/2023 83 kg (183 lb) 02/25/2023 81.2 kg (179 lb) 12/09/2022 79.4 kg (175 lb) No waist measurement recorded Estimated body mass index is 38.41 kg/m as calculated from the following: Height as of 04/07/21: 143.5 cm (4' 8.5). Weight as of this encounter: 79.1 kg (174 lb 6.1 oz). Last 5 Encounter BP Readings: Date: BP: 12/08/2023 110/76 06/15/2023 128/76 05/24/2023 141/84 02/25/2023 146/79 12/09/2022 122/78 Physical Exam Constitutional: Appearance: Normal appearance. She is obese. HENT: Head: Normocephalic. Eyes: Conjunctiva/sclera: Conjunctivae normal. Cardiovascular: Rate and Rhythm: Normal rate and regular rhythm. Heart sounds: Normal heart sounds. Pulmonary: Effort: Pulmonary effort is normal. Breath sounds: Normal breath sounds. Musculoskeletal: Right lower leg: No edema. Left lower leg: No edema. Skin: General: Skin is warm and dry. Neurological: General: No focal deficit present. Mental Status: She is alert and oriented to person, place, and time. Psychiatric: Mood and Affect: Mood normal. Behavior: Behavior normal. Thought Content: Thought content normal. Judgment: Judgment normal. Latest Ref Rng 05/09/2022 12/11/2022 02/25/2023 12/04/2023 WBC 3.70 - 11.00 k/uL 6.41 5.25 7.25 RBC 3.90 - 5.20 m/uL 5.09 4.69 5.19 Hemoglobin 11.5 - 15.5 g/dL 14.4 13.4 14.6 Hematocrit 36.0 - 46.0 % 46.0 42.8 47.4 (H) MCV 80.0 - 100.0 fL 90.4 91.3 91.3 MCH 26.0 - 34.0 pg 28.3 28.6 28.1 MCHC 30.5 - 36.0 g/dL 31.3 31.3 30.8 RDW-CV 11.5 - 15.0 % 13.6 13.8 13.5 Platelet Count 150 - 400 k/uL 353 316 372 MPV 9.0 - 12.7 fL 10.1 10.5 10.8 Neut% % 58.2 65.7 Abs Neut (ANC) 1.45 - 7.50 k/uL 3.73 4.76 Lymph% % 29.6 24.8 Abs Lymph 1.00 - 4.00 k/uL 1.90 1.80 Grand% % 9.8 7.0 Abs Grand <0.87 k/uL 0.63 0.51 Eosin% % 1.4 1.5 Abs Eosin <0.46 k/uL 0.09 0.11 Baso% % 0.8 0.7 Abs Baso <0.11 k/uL 0.05 0.05 Immature Gran % % 0.2 0.3 IMMATURE GRANS (ABS) <0.10 k/uL <0.03 <0.03 NRBC /100 WBC 0.0 0.0 Absolute nRBC <0.01 k/uL <0.01 <0.01 <0.01 DTYPE Auto Auto Protein, Total 6.3 - 8.0 g/dL 7.2 6.4 7.2 Albumin 3.9 - 4.9 g/dL 4.4 4.2 4.3 Calcium 8.5 - 10.2 mg/dL 10.6 (H) 9.7 10.2 Bilirubin, Total 0.2 - 1.3 mg/dL 0.7 0.6 0.5 Alkaline Phosphatase 34 - 123 U/L 55 53 58 AST 13 - 35 U/L 24 18 22 ALT 7 - 38 U/L 22 23 23 Glucose 74 - 99 mg/dL 103 (H) 99 94 BUN 7 - 21 mg/dL 19 17 22 (H) Creatinine 0.58 - 0.96 mg/dL 0.81 0.76 1.03 (H) Sodium 136 - 144 mmol/L 139 140 141 Potassium 3.7 - 5.1 mmol/L 4.4 4.5 4.4 Chloride 98 - 107 mmol/L 103 104 103 CO2 22 - 30 mmol/L 27 25 26 Anion Gap 8 - 15 mmol/L 9 11 12 eGFR >=60 mL/min/1.73m 85 91 63 SARS-CoV-2 (Agent of COVID-19) RNA See comment Not detected Influenza A RNA Not Detected Not detected Influenza B RNA Not Detected Not detected Respiratory syncytial virus (RSV) RNA Not Detected Not detected Hemoglobin A1C 4.3 - 5.6 % 5.7 (H) 5.8 (H) Estimated Average Glucose mg/dL 117 120 TSH 0.270 - 4.200 mIU/L 2.000 1.310 PTH, Intact 15 - 65 pg/mL 29 Legend: (H) High Assessment and Plan # Primary hypertension (I10) - Blood pressure well-controlled, recent readings improved from 140 mmHg in May to 110 mmHg. - Continue current management with losartan, last filled in September. - Ordered follow-up labs to monitor kidney function and blood glucose levels. # Mild intermittent asthma without complication (J45.20) - Managed by Dr. Caldwell; follow-up scheduled in January. - Albuterol inhaler prescription sent to pharmacy to ensure availability of a fresh inhaler. # RLS (restless legs syndrome) (G25.81) - Well-controlled with Sinemet, last refilled in September. # Class 2 obesity due to excess calories with body mass index (BMI) of 38.0 to 38.9 in adult, unspecified whether serious comorbidity present (E66.812) - Weight has decreased by approximately 10 pounds since May. - Patient has made dietary changes, including eliminating deep-fried foods and increasing vegetable intake. - Encouraged continuation of healthy eating habits and regular hydration. # Psychophysiological insomnia (F51.04) - Managed with trazodone 25 mg at bedtime, last filled in May. - Patient reports adequate sleep, though occasionally disrupted by pets. # Impaired fasting glucose (R73.01) - Previous A1c levels slightly above normal; ordered follow-up A1c and lipid panel to be done fasting. - Discussed importance of maintaining hydration before lab tests. Agnieszka Bruce MD documented in this encounter [facility] 09-27-2023 Telephone encounter Note The patient has been identified by name and date of : Yes Caregiver verified no other encounters exist for this prescription request: Yes Caregiver confirmed with patient/requestor that no other refills are due, in the near future, with this provider at this time: Yes The last office visit in the department: 06/15/2023 Does the patient have a future office visit with this provider/department: Yes 12/08/2023 Requested Prescriptions Pending Prescriptions Disp Refills losartan (COZAAR) 25 mg tablet 90 tablet 3 Sig: Take 1 tablet by mouth once daily. carbidopa-levodopa (SINEMET 10-100) 10-100 mg per tablet 90 tablet 3 Sig: Take 1 tablet by mouth once daily. Sabina Solitario RN September 27, 2023 3:11 PM [facility] 09-27-2023 Miscellaneous Notes The patient has been identified by name and date of : Yes Caregiver verified no other encounters exist for this prescription request: Yes Caregiver confirmed with patient/requestor that no other refills are due, in the near future, with this provider at this time: Yes The last office visit in the department: 06/15/2023 Does the patient have a future office visit with this provider/department: Yes 12/08/2023 Requested Prescriptions Pending Prescriptions Disp Refills losartan (COZAAR) 25 mg tablet 90 tablet 3 Sig: Take 1 tablet by mouth once daily. carbidopa-levodopa (SINEMET 10-100) 10-100 mg per tablet 90 tablet 3 Sig: Take 1 tablet by mouth once daily. Sabina Solitario RN September 27, 2023 3:11 PM documented in this encounter [facility] 06-15-2023 Note Addended by: SIMIN GUPTA on: 06/15/2023 09:11 AM Modules accepted: Orders [facility] 06-15-2023 Miscellaneous Notes Addended by: SIMIN GUPTA on: 06/15/2023 09:11 AM Modules accepted: Orders Addended by: SIMIN GUPTA on: 06/15/2023 09:08 AM Modules accepted: Orders documented in this encounter [facility] 06-15-2023 Note Addended by: SIMIN GUPTA on: 06/15/2023 09:08 AM Modules accepted: Orders [facility] 06-15-2023 History of Present illness Narrative SUBJECTIVE: Hepatitis B Vaccine(1 of 3 - 19+ 3-dose series) Never done Behavioral Health Screening Never done Mammogram Screening due on 09/08/2023 HPI Valentina Donahue is a 57 year old female. PMH significant for ACTIVE PROBLEM LIST Impaired Fasting Glucose Rls (Restless Legs Syndrome) Insomnia Postmenopausal Atrophic Vaginitis Trigger Ring Finger of Right Hand Obesity, Class II, Bmi 35-39.9 Stress Incontinence Elevated Blood Pressure Reading Presents for routine checkup today. HPI excerpt from previous visit: Presents today for emergency department follow-up visit. She presented to [facility] on May 22, 2023 with flank pain. She notes that she was sleeping when she awoke with left-sided pain. Noted it on the left lateral abdomen sharp in nature. She noted dark-colored urine. She reports history of remote kidney stone and feels this is similar problem. Pain on palpation in the ER in the left lateral and upper quadrant. Hematuria noted. CT scan did show a 4 mm stone in the mid left ureter with mild hydronephrosis. She was treated with IV fluids and Toradol and had resolution of the pain. She was advised to follow-up with outpatient urology. Provided with ketorolac and tamsulosin to be taken at home. Today reports that she continues to note lower abdominal pain flank pain. No gross hematuria. Has not observed a stone passing. Notes she has been taking tamsulosin and ketorolac which are helping somewhat. States she has an appointment coming up with urologist on Wednesday. Wonders if she can return to work. Today notes that she is feeling improved. No further abdominal discomfort. No gross hematuria not sure if she passed the kidney stone or not. She has been seen by urology at [facility] since last year. She has a CT scan scheduled for 6-week follow-up. Continues with tamsulosin. She notes that Sinemet is working well for RLS. Trazodone 25 mg at bedtime effective for insomnia. Using CPAP for DEVANTE, does help She has been seen by Dr. Caldwell sumac tanner was for hospital. She has PFTs scheduled. Checking for asthma. Reports rare use of albuterol inhaler. Review of Systems Constitutional: Negative. Objective BP 128/76 Pulse 93 Resp 16 Wt 81 kg (178 lb 9.6 oz) LMP 08/29/2010 SpO2 98% BMI 39.34 kg/m Physical Exam Vitals and nursing note reviewed. Constitutional: General: She is not in acute distress. Appearance: She is obese. She is not ill-appearing or toxic-appearing. HENT: Head: Normocephalic and atraumatic. Eyes: General: No scleral icterus. Right eye: No discharge. Left eye: No discharge. Conjunctiva/sclera: Conjunctivae normal. Neck: Thyroid: No thyromegaly or thyroid tenderness. Vascular: No carotid bruit. Cardiovascular: Rate and Rhythm: Normal rate and regular rhythm. Pulses: Normal pulses. Heart sounds: Normal heart sounds. Pulmonary: Effort: Pulmonary effort is normal. Breath sounds: Normal breath sounds. Abdominal: General: Bowel sounds are normal. Palpations: Abdomen is soft. Musculoskeletal: Right lower leg: No edema. Left lower leg: No edema. Lymphadenopathy: Cervical: No cervical adenopathy. Skin: General: Skin is warm and dry. Neurological: General: No focal deficit present. Mental Status: She is alert and oriented to person, place, and time. ALLERGIES Allergen Reactions Aleve [Naproxen Sod* Amoxicillin Benadryl [Diphenhyd* Rash Ceftin [Cefuroxime * Erythromycin Guaifenesin Intolerance Humibid Lisinopril Other: See Comments lightheadedness Macrobid [Nitrofura* Nortriptyline Penicillins Rash Semprex-D [Acrivast* Medications tamsulosin (FLOMAX) 0.4 mg Take 1 capsule by mouth once daily for 16 days. fluticasone (FLONASE) 50 mcg/actuation nasal spray USE 2 SPRAYS IN EACH NOSTRIL ONCE DAILY. RINSE MOUTH AFTER USE. losartan (COZAAR) 25 mg tablet Take 1 tablet by mouth once daily. carbidopa-levodopa (SINEMET 10-100) 10-100 mg per tablet Take 1 tablet by mouth once daily. traZODone (DESYREL) 50 mg tablet take 1/2 tablet by mouth at bedtime ibuprofen (MOTRIN) 200 mg tablet Take 2-3 tablets by mouth twice daily as needed for Pain. MULTIVITAMIN TAB Take by mouth. keTORolac (TORADOL) 10 mg tablet (Patient not taking: Reported on 06/15/2023) albuterol HFA (PROAIR HFA) 90 mcg/actuation inhaler Inhale 2 Puffs as instructed every 6 hours as needed. (Patient not taking: Reported on 12/09/2022) PAST MEDICAL HISTORY Diagnosis Date C. difficile colitis 06/11/2012 Calculus of kidney 07/26/2006 Essential hypertension 01/10/2009 Impaired Fasting Glucose 07/15/2009 Resolved RLS (restless legs syndrome) Trigger ring finger of right hand 04/07/2016 Unspecified Essential Hypertension 01/10/2009 Urinary calculus, unspecified Renal stones Social History Tobacco Use Smoking status: Never Smokeless tobacco: Never Vaping Use Vaping Use: Never used Substance Use Topics Alcohol use: Yes Comment: Occasionally Drug use: No Latest Ref Rng 08/30/2021 05/09/2022 12/11/2022 04/28/2023 WBC 3.70 - 11.00 k/uL 6.36 6.41 5.25 RBC 3.90 - 5.20 m/uL 5.19 5.09 4.69 Hemoglobin 11.5 - 15.5 g/dL 14.5 14.4 13.4 Hematocrit 36.0 - 46.0 % 46.8 (H) 46.0 42.8 MCV 80.0 - 100.0 fL 90.2 90.4 91.3 MCH 26.0 - 34.0 pg 27.9 28.3 28.6 MCHC 30.5 - 36.0 g/dL 31.0 31.3 31.3 RDW-CV 11.5 - 15.0 % 13.6 13.6 13.8 Platelet Count 150 - 400 k/uL 317 353 316 MPV 9.0 - 12.7 fL 10.5 10.1 10.5 Neut% % 58.2 Abs Neut (ANC) 1.45 - 7.50 k/uL 3.73 Lymph% % 29.6 Abs Lymph 1.00 - 4.00 k/uL 1.90 Grand% % 9.8 Abs Grand <0.87 k/uL 0.63 Eosin% % 1.4 Abs Eosin <0.46 k/uL 0.09 Baso% % 0.8 Abs Baso <0.11 k/uL 0.05 Immature Gran % % 0.2 IMMATURE GRANS (ABS) <0.10 k/uL <0.03 NRBC /100 WBC 0.0 Absolute nRBC <0.01 k/uL <0.01 <0.01 <0.01 DTYPE Auto Protein, Total 6.3 - 8.0 g/dL 7.0 7.2 6.4 Albumin 3.9 - 4.9 g/dL 4.4 4.4 4.2 Calcium 8.5 - 10.2 mg/dL 10.1 10.6 (H) 9.7 Bilirubin, Total 0.2 - 1.3 mg/dL 0.4 0.7 0.6 Alkaline Phosphatase 34 - 123 U/L 56 55 53 AST 13 - 35 U/L 17 24 18 ALT 7 - 38 U/L 18 22 23 Glucose 74 - 99 mg/dL 96 103 (H) 99 BUN 7 - 21 mg/dL 21 19 17 Creatinine 0.58 - 0.96 mg/dL 0.85 0.81 0.76 Sodium 136 - 144 mmol/L 139 139 140 Potassium 3.7 - 5.1 mmol/L 4.4 4.4 4.5 Chloride 97 - 105 mmol/L 101 103 104 CO2 22 - 30 mmol/L 26 27 25 Anion Gap 9 - 18 mmol/L 12 9 11 eGFR >=60 mL/min/1.73m 81 85 91 Hemoglobin A1C 4.3 - 5.6 % 5.8 (H) 5.7 (H) 5.8 (H) Estimated Average Glucose mg/dL 120 117 120 TSH 0.270 - 4.200 mIU/L 2.000 PTH, Intact 15 - 65 pg/mL 29 Ferritin 14.7 - 205.1 ng/mL 182.0 ASSESSMENT/PLAN: 1. Renal calculus - ICD9: 592.0, ICD10: N20.0 (primary diagnosis) Feeling improved. She has been seen by urology. CT flank 6-week follow-up to be scheduled at [facility]. Endorse drinking plenty of water or other beverage 64 ounces at least per day, continue with tamsulosin times total of 30 days. Continue to follow with urologist.. 2. Psychophysiological insomnia - ICD9: 307.42, ICD10: F51.04 Insomnia currently well-controlled on 25 mg at bedtime. - TRAZODONE 50 MG TABLET 3. RLS (restless legs syndrome) - ICD9: 333.94, ICD10: G25.81 Symptoms are controlled on current treatment. Continue unchanged for now. 4. Elevated blood pressure reading - ICD9: 796.2, ICD10: R03.0 Blood pressure is in acceptable range 5. Obesity, Class II, BMI 35-39.9 - ICD9: 278.00, ICD10: E66.9 Endorsed portion control and routine exercise such as walking 6. Encounter for immunization - ICD9: V03.89, ICD10: Z23 - HEP B VACCINE, 3-DOSE, AGE 20+ YR (ENGERIX-B, RECOMBIVAX HB) - HEP B VACCINE, 3-DOSE, AGE 20+ YR (ENGERIX-B, RECOMBIVAX HB) - HEP B VACCINE, 3-DOSE, AGE 20+ YR (ENGERIX-B, RECOMBIVAX HB) 7. Encounter for screening mammogram for breast cancer - ICD9: V76.12, ICD10: Z12.31 Endorse routine BSE - ROGELIO SCREENING W MICHAEL 6 mo follow up MD Hamilton Jackson APRN.[employer] Medical Decision Making: Problems: Moderate: 2+ stable chronic illnesses Data: Unique test(s) ordered: 3+ Risk: Moderate: Drug management Medical Decision Making Level: 4 - Moderate documented in this encounter [facility] 05-24-2023 History of Present illness Narrative SUBJECTIVE: Hepatitis B Vaccine(1 of 3 - 19+ 3-dose series) Never done BP Controlled (<130/80) due on 09/09/2022 Depression Assessment due on 02/22/2023 HPI Valentina Donahue is a 57 year old female. PMH significant for ACTIVE PROBLEM LIST Impaired Fasting Glucose Rls (Restless Legs Syndrome) Insomnia Postmenopausal Atrophic Vaginitis Trigger Ring Finger of Right Hand Obesity, Class II, Bmi 35-39.9 Stress Incontinence Elevated Blood Pressure Reading Presents today for emergency department follow-up visit. She presented to [facility] on May 22, 2023 with flank pain. She notes that she was sleeping when she awoke with left-sided pain. Noted it on the left lateral abdomen sharp in nature. She noted dark-colored urine. She reports history of remote kidney stone and feels this is similar problem. Pain on palpation in the ER in the left lateral and upper quadrant. Hematuria noted. CT scan did show a 4 mm stone in the mid left ureter with mild hydronephrosis. She was treated with IV fluids and Toradol and had resolution of the pain. She was advised to follow-up with outpatient urology. Provided with ketorolac and tamsulosin to be taken at home. Today reports that she continues to note lower abdominal pain flank pain. No gross hematuria. Has not observed a stone passing. Notes she has been taking tamsulosin and ketorolac which are helping somewhat. States she has an appointment coming up with urologist on Wednesday. Wonders if she can return to work. Using CPAP for DEVANTE, does help Review of Systems Constitutional: Negative. Respiratory: Negative. Cardiovascular: Negative. Gastrointestinal: Positive for abdominal pain. Psychiatric/Behavioral: Positive for sleep disturbance. Objective BP 141/84 Pulse 106 Resp 16 Wt 83 kg (183 lb) LMP 08/29/2010 BMI 40.30 kg/m Physical Exam Vitals and nursing note reviewed. Constitutional: General: She is not in acute distress. Appearance: She is obese. She is not ill-appearing or toxic-appearing. HENT: Head: Normocephalic and atraumatic. Eyes: General: No scleral icterus. Right eye: No discharge. Left eye: No discharge. Conjunctiva/sclera: Conjunctivae normal. Neck: Thyroid: No thyromegaly or thyroid tenderness. Vascular: No carotid bruit. Cardiovascular: Rate and Rhythm: Normal rate and regular rhythm. Pulses: Normal pulses. Heart sounds: Normal heart sounds. Pulmonary: Effort: Pulmonary effort is normal. Breath sounds: Normal breath sounds. Abdominal: General: Bowel sounds are normal. Palpations: Abdomen is soft. Tenderness: There is abdominal tenderness (lower abdominal). Musculoskeletal: Right lower leg: No edema. Left lower leg: No edema. Lymphadenopathy: Cervical: No cervical adenopathy. Skin: General: Skin is warm and dry. Comments: she reports perineal itching and burning Neurological: General: No focal deficit present. Mental Status: She is alert and oriented to person, place, and time. ALLERGIES Allergen Reactions Aleve [Naproxen Sod* Amoxicillin Benadryl [Diphenhyd* Rash Ceftin [Cefuroxime * Erythromycin Guaifenesin Intolerance Humibid Lisinopril Other: See Comments lightheadedness Macrobid [Nitrofura* Nortriptyline Penicillins Rash Semprex-D [Acrivast* Medications tamsulosin (FLOMAX) 0.4 mg keTORolac (TORADOL) 10 mg tablet fluticasone (FLONASE) 50 mcg/actuation nasal spray USE 2 SPRAYS IN EACH NOSTRIL ONCE DAILY. RINSE MOUTH AFTER USE. losartan (COZAAR) 25 mg tablet Take 1 tablet by mouth once daily. carbidopa-levodopa (SINEMET 10-100) 10-100 mg per tablet Take 1 tablet by mouth once daily. traZODone (DESYREL) 50 mg tablet take 1/2 tablet by mouth at bedtime ibuprofen (MOTRIN) 200 mg tablet Take 2-3 tablets by mouth twice daily as needed for Pain. MULTIVITAMIN TAB Take by mouth. albuterol HFA (PROAIR HFA) 90 mcg/actuation inhaler Inhale 2 Puffs as instructed every 6 hours as needed. (Patient not taking: Reported on 12/09/2022) benzonatate (TESSALON PERLES) 100 mg capsule Take 1 capsule by mouth three times a day as needed for cough. (Patient not taking: Reported on 12/09/2022) PAST MEDICAL HISTORY Diagnosis Date C. difficile colitis 06/11/2012 Calculus of kidney 07/26/2006 Essential hypertension 01/10/2009 Impaired Fasting Glucose 07/15/2009 Resolved RLS (restless legs syndrome) Trigger ring finger of right hand 04/07/2016 Unspecified Essential Hypertension 01/10/2009 Urinary calculus, unspecified Renal stones Social History Tobacco Use Smoking status: Never Smokeless tobacco: Never Vaping Use Vaping Use: Never used Substance Use Topics Alcohol use: Yes Comment: Occasionally Drug use: No Component Latest Ref Rng & Units 08/30/2021 Protein, Total 6.3 - 8.0 g/dL 7.0 Albumin 3.9 - 4.9 g/dL 4.4 Calcium 8.5 - 10.2 mg/dL 10.1 Bilirubin, Total 0.2 - 1.3 mg/dL 0.4 Alkaline Phosphatase 34 - 123 U/L 56 AST 13 - 35 U/L 17 ALT 7 - 38 U/L 18 Glucose 74 - 99 mg/dL 96 BUN 7 - 21 mg/dL 21 Creatinine 0.58 - 0.96 mg/dL 0.85 Sodium 136 - 144 mmol/L 139 Potassium 3.7 - 5.1 mmol/L 4.4 Chloride 97 - 105 mmol/L 101 CO2 22 - 30 mmol/L 26 Anion Gap 9 - 18 mmol/L 12 eGFR >=60 mL/min/1.73m 81 WBC 3.70 - 11.00 k/uL 6.36 RBC 3.90 - 5.20 m/uL 5.19 Hemoglobin 11.5 - 15.5 g/dL 14.5 Hematocrit 36.0 - 46.0 % 46.8 (H) MCV 80.0 - 100.0 fL 90.2 MCH 26.0 - 34.0 pg 27.9 MCHC 30.5 - 36.0 g/dL 31.0 RDW-CV 11.5 - 15.0 % 13.6 Platelet Count 150 - 400 k/uL 317 MPV 9.0 - 12.7 fL 10.5 Absolute nRBC <0.01 k/uL <0.01 Hemoglobin A1C 4.3 - 5.6 % 5.8 (H) Estimated Average Glucose mg/dL 120 ASSESSMENT/PLAN: 1. Renal calculus - ICD9: 592.0, ICD10: N20.0 (primary diagnosis) Endorse drinking plenty of water or other beverage 64 ounces at least per day, continue with tamsulosin times total of 30 days. Still taking ketorolac. Has urologist appointment on Wednesday. She would like to return to work I think cystitis she is feeling well. She will let us know if she wants to be off work - KETOROLAC 10 MG TABLET - CONSULT TO UROLOGY - TAMSULOSIN 0.4 MG CAPSULE 2. Perineal itching, female - ICD9: 698.0, ICD10: L29.3 Separately reports perineal itching matches started recently. Recommend try Mycolog ointment if not improving recommend CIRCULAR DISTRIBUTOR visit - NYSTATIN-TRIAMCINOLONE 100,000 UNIT/GRAM-0.1 % TOPICAL OINTMENT 6 mo follow up MD Hamilton Jackson, MACHINIST SET UP.INSPECTOR MACHINE PARTS Medical Decision Making: Problems: Moderate: 1+ chronic illnesses with change Data: Unique source(s) for external note(s) reviewed: 1 Unique test result(s) reviewed: 3+ Risk: Moderate: Drug management Medical Decision Making Level: 4 - Moderate documented in this encounter [facility] 12-09-2022 History of Present illness Narrative This note was created using MyNinesriter. Subjective Valentina Donahue is a 57 year old female. Patient presents with: F/U 6 months SUBJECTIVE: Valentina Donahue is a 57 year old year old lady here today for 6 month follow up appointment for review of medical conditions. Doing well aside from right shoulder pain that comes and goes. Lifted something that was too heavy yesterday--resting the arm was adequate. Doing well on meds. No adverse effects. Getting over sinobronchitis treated through [facility]. Was Day 11 when went there. No wheezing noted now. Not needing inhaler or tessalon perles. Follows with Yumiko Todd at [facility] for CIRCULAR DISTRIBUTOR exams and mammograms. Told not due for PAP till next year. Down to 1 dink of pop and working on cutting that down. PAST MEDICAL HISTORY Diagnosis Date C. difficile colitis 06/11/2012 Calculus of kidney 07/26/2006 Essential hypertension 01/10/2009 Impaired Fasting Glucose 07/15/2009 Resolved RLS (restless legs syndrome) Trigger ring finger of right hand 04/07/2016 Unspecified Essential Hypertension 01/10/2009 Urinary calculus, unspecified Renal stones Current Outpatient Medications Medication Sig albuterol HFA (PROAIR HFA) 90 mcg/actuation inhaler Inhale 2 Puffs as instructed every 6 hours as needed. benzonatate (TESSALON PERLES) 100 mg capsule Take 1 capsule by mouth three times a day as needed for cough. carbidopa-levodopa (SINEMET 10-100) 10-100 mg per tablet Take 1 tablet by mouth once daily. traZODone (DESYREL) 50 mg tablet take 1/2 tablet by mouth at bedtime losartan (COZAAR) 25 mg tablet TAKE 1 TABLET BY MOUTH EVERY DAY ibuprofen (MOTRIN) 200 mg tablet Take 2-3 tablets by mouth twice daily as needed for Pain. MULTIVITAMIN TAB Take by mouth. No current facility-administered medications for this visit. Review of Systems Objective BP 122/78 Pulse 81 Temp 36.7 C (98.1 F) Resp 18 Wt 79.4 kg (175 lb) LMP 08/29/2010 SpO2 97% BMI 38.54 kg/m Physical Exam Constitutional: Appearance: Normal appearance. HENT: Head: Normocephalic. Eyes: Conjunctiva/sclera: Conjunctivae normal. Cardiovascular: Rate and Rhythm: Normal rate and regular rhythm. Heart sounds: Normal heart sounds. Pulmonary: Effort: Pulmonary effort is normal. Breath sounds: Normal breath sounds. No wheezing (None with forced expirations). Musculoskeletal: Right lower leg: No edema. Left lower leg: No edema. Skin: General: Skin is warm and dry. Neurological: General: No focal deficit present. Mental Status: She is alert and oriented to person, place, and time. Psychiatric: Mood and Affect: Mood normal. Behavior: Behavior normal. Thought Content: Thought content normal. Judgment: Judgment normal. Component Latest Ref Rng & Units 12/30/2020 08/30/2021 05/09/2022 WBC 3.70 - 11.00 k/uL 5.5 6.36 6.41 RBC 3.90 - 5.20 m/uL 5.12 5.19 5.09 Hemoglobin 11.5 - 15.5 g/dL 14.3 14.5 14.4 Hematocrit 36.0 - 46.0 % 45.2 46.8 (H) 46.0 MCV 80.0 - 100.0 fL 88 90.2 90.4 MCH 26.0 - 34.0 pg 27.9 27.9 28.3 MCHC 30.5 - 36.0 g/dL 31.6 (A) 31.0 31.3 RDW-CV 11.5 - 15.0 % 13.6 13.6 Platelet Count 150 - 400 k/uL 301 317 353 MPV 9.0 - 12.7 fL 10.5 10.1 Neut% % 58.2 Abs Neut (ANC) 1.45 - 7.50 k/uL 3.73 Lymph% % 29.6 Abs Lymph 1.00 - 4.00 k/uL 1.90 Grand% % 9.8 Abs Grand <0.87 k/uL 0.63 Eosin% % 1.4 Abs Eosin <0.46 k/uL 0.09 Baso% % 0.8 Abs Baso <0.11 k/uL 0.05 Immature Gran % % 0.2 IMMATURE GRANS (ABS) <0.10 k/uL <0.03 NRBC /100 WBC 0.0 Absolute nRBC <0.01 k/uL <0.01 <0.01 DTYPE Auto RDW 11.5 - 14.5 % 13.1 NEUTROPHILS ABSOLUTE 1.4 - 7.0 k/uL 3.2 LYMPHS ABSOLUTE 0.7 - 3.1 k/uL 1.6 MONOCYTES ABSOLUTE 0.1 - 0.9 k/uL 0.2 EOSINOPHILS,ABSOLUTE 0.1 BASO ABSOLUTE 0.0 - 0.2 k/uL 0.0 Immature Granulocyte % - Intl 0 IMMATURE GRANS ABSOLUTE 0.0 - 0.1 k/uL 0 NEUTROPHILS 58 Lymphocyte % % 30 Monocyte 9 Eosinophil 2 Basos%, CSF 1 NA 136 - 145 mmol/L 134 (A) K 3.5 - 5.1 mmol/L 4.2 Chloride 97 - 105 mmol/L 100 101 103 CO2 22 - 30 mmol/L 23 26 27 Glucose 74 - 99 mg/dL 92 96 103 (H) BUN 7 - 21 mg/dL 20 (A) 21 19 Creatinine 0.58 - 0.96 mg/dL 0.82 0.85 0.81 GFR mL/MIN 80 GFR AFR AMER mL/MIN 93 Total Protein 6.4 - 8.2 gm/dL 6.6 Albumin 3.9 - 4.9 g/dL 4.5 4.4 4.4 Calcium 8.5 - 10.1 mg/dL 9.6 Bili Total 0.2 - 1 mg/dL 0.5 AST 13 - 35 U/L 15 17 24 ALT (SGPT) 12 - 78 U/L 19 Alk Phos Total 45 - 117 U/L 63 BUN/CREATININE RATIO 9 - 20 24 (A) Protein, Total 6.3 - 8.0 g/dL 7.0 7.2 Calcium 8.5 - 10.2 mg/dL 10.1 10.6 (H) Bilirubin, Total 0.2 - 1.3 mg/dL 0.4 0.7 Alkaline Phosphatase 34 - 123 U/L 56 55 ALT 7 - 38 U/L 18 22 Sodium 136 - 144 mmol/L 139 139 Potassium 3.7 - 5.1 mmol/L 4.4 4.4 Anion Gap 9 - 18 mmol/L 12 9 eGFR >=60 mL/min/1.73m 81 85 Triglyceride 149 mg/dL 172 (A) CHOLESTEROL, TOTAL 0 - 200 MG/DL 218 (A) HDC-L 41 mg/dL 57 (A) LDL Chol, calculated 130 MG/DL 131 (A) VLDL 10 - 38 Ratio 30 Hemoglobin A1C 4.3 - 5.6 % 6.0 5.8 (H) 5.7 (H) Estimated Average Glucose mg/dL 120 117 TSH 0.270 - 4.200 mIU/L 2.000 Assessment and Plan Encounter Diagnosis ICD-10-CM 1. Essential hypertension I10 losartan (COZAAR) 25 mg tablet COMP METABOLIC PANEL CBC 2. Elevated hemoglobin A1c R73.09 COMP METABOLIC PANEL HGB A1C 3. Hypercalcemia E83.52 COMP METABOLIC PANEL PTH INTACT BLD 4. Class 2 obesity due to excess calories with body mass index (BMI) of 38.0 to 38.9 in adult, unspecified whether serious comorbidity present E66.09 Z68.38 see below 5. Encounter for long-term current use of medication Z79.899 COMP METABOLIC PANEL CBC PTH INTACT BLD HGB A1C Above issues addressed with patient. Patient involved in shared decision making for management of medical issues. History and medications reviewed. Epic updated as needed Refills and/or prescriptions taken care of and meds adjusted as indicated after reviewed history, exam and labs. Health Maintenance reviewed. Updated record and/or ordered tests as recorded. Encouraged on efforts at healthy diet and regular exercise and adequate sleep. I spent a total of 33 minutes on the date of the service which included preparing to see the patient, [id number] patient care, completing clinical documentation, obtaining and/or reviewing separately obtained history, performing a medically appropriate examination, counseling and educating the patient/family/caregiver, and ordering medications, tests, or procedures. Agnieszka Bruce MD documented in this encounter [facility] 12-01-2022 History of Present illness Narrative Subjective HPI Nontoxic-appearing female presents urgent care chief complaint sinus pressure cough. Duration of symptoms 11 days. Associated symptoms sinus pressure cough sore throat fatigue. Patient states most prominent symptom today is cough and sinus pressure. Has used OTC medications this is helped a little. Sick contacts at work similar signs symptoms. No significant pain. Denies any fever body aches chills productive cough chest pain shortness of breath pleuritic pain hemoptysis nausea vomiting abdominal pain change in bowel or bladder habits. Past medical history prescription medication use and allergies reviewed. .Patient presents with: Nasal Congestion: drainage, cough, bilateral ear pain, sore throat x 11 days PAST MEDICAL HISTORY Diagnosis Date C. difficile colitis 06/11/2012 Calculus of kidney 07/26/2006 Essential hypertension 01/10/2009 Impaired Fasting Glucose 07/15/2009 Resolved RLS (restless legs syndrome) Trigger ring finger of right hand 04/07/2016 Unspecified Essential Hypertension 01/10/2009 Urinary calculus, unspecified Renal stones PAST SURGICAL HISTORY Procedure Laterality Date ABDOMINAL SURGERY HX APPENDECTOMY HX COLONOSCOPY 04/11/2021 repeat in 5 years INCISE FINGER TENDON SHEATH Right 07/23/2016 Right ring trigger finger release LAPAROSCOPIC APPENDECTOMY 10/27/2008 PAST SURGICAL HISTORY OF wisdom teeth PAST SURGICAL HISTORY OF meredith excised from nose PAST SURGICAL HISTORY OF 2005 kidney stone removed ALLERGIES Aleve [Naproxen Sodium], Amoxicillin, Benadryl [Diphenhydramine Hcl], Ceftin [Cefuroxime Axetil], Erythromycin, Humabid [Other], Lisinopril, Macrobid [Nitrofurantoin Monohyd/M-Cryst], Nortriptyline, Penicillins, and Semprex-D [Acrivastine-Pseudoephedrine] MEDICATIONS carbidopa-levodopa (SINEMET 10-100) 10-100 mg per tablet Take 1 tablet by mouth once daily. traZODone (DESYREL) 50 mg tablet take 1/2 tablet by mouth at bedtime losartan (COZAAR) 25 mg tablet TAKE 1 TABLET BY MOUTH EVERY DAY ibuprofen (MOTRIN) 200 mg tablet Take 2-3 tablets by mouth twice daily as needed for Pain. MULTIVITAMIN TAB Take by mouth. FAMILY HISTORY Problem Relation Age of Onset Hypertension Mother Cancer Mother Ovarian Osteoporosis Mother Heart Father pacemaker Hypertension Father Skin Cancer Sister not sure what type; had 2 skin cancer lesions excised Heart Maternal Grandmother from massive heart attack Social History Tobacco Use Smoking status: Never Smokeless tobacco: Never Vaping Use Vaping Use: Never used Substance Use Topics Alcohol use: Yes Comment: Occasionally Drug use: No BP 132/74 Pulse 94 Temp 36.9 C (98.4 F) Resp 16 Wt 78 kg (172 lb) LMP 08/29/2010 SpO2 96% BMI 37.88 kg/m Review of Systems Constitutional: Negative for chills, fever and malaise/fatigue. HENT: Positive for congestion and sore throat. Negative for ear discharge, ear pain and sinus pain. Eyes: Negative for blurred vision, pain, discharge and redness. Respiratory: Positive for cough. Negative for hemoptysis, sputum production, shortness of breath, wheezing and stridor. Cardiovascular: Negative for chest pain. Gastrointestinal: Negative for abdominal pain, diarrhea, nausea and vomiting. Musculoskeletal: Positive for myalgias. Skin: Negative for itching and rash. Neurological: Negative for dizziness and headaches. Objective Physical Exam Constitutional: General: She is not in acute distress. Appearance: She is not diaphoretic. HENT: Head: Normocephalic. Jaw: No trismus, tenderness, swelling or pain on movement. Nose: Congestion present. Right Sinus: Maxillary sinus tenderness present. Left Sinus: Maxillary sinus tenderness present. Mouth/Throat: Mouth: Mucous membranes are moist. Pharynx: Oropharynx is clear. Uvula midline. No pharyngeal swelling, oropharyngeal exudate, posterior oropharyngeal erythema or uvula swelling. Eyes: Conjunctiva/sclera: Conjunctivae normal. Pupils: Pupils are equal, round, and reactive to light. Cardiovascular: Rate and Rhythm: Normal rate and regular rhythm. Heart sounds: Normal heart sounds. Pulmonary: Effort: Pulmonary effort is normal. No tachypnea, accessory muscle usage or respiratory distress. Breath sounds: Normal breath sounds. No stridor. No wheezing, rhonchi or rales. Abdominal: General: There is no distension. Palpations: Abdomen is soft. Tenderness: There is no abdominal tenderness. There is no guarding or rebound. Musculoskeletal: Cervical back: Normal range of motion and neck supple. No edema, erythema, rigidity or tenderness. No pain with movement. Normal range of motion. Lymphadenopathy: Cervical: No cervical adenopathy. Skin: General: Skin is warm and dry. Neurological: Mental Status: She is alert and oriented to person, place, and time. ASSESSMENT/PLAN: 1. Sinobronchitis - ICD9: 473.9, 490, ICD10: J32.9, J40 Diagnosed with sinobronchitis. Chest x-ray offered declined testing at this time. Placed on doxycycline Tessalon Perles and albuterol. Red flags prompt reevaluation discussed. Patient was educated on supportive therapies. Patient will follow up with primary care provider as needed. Patient was instructed to immediately proceed to emergency room for any new, worsening, or symptoms lasting longer than anticipated. The patient's clinical presentation is otherwise unremarkable at this time. Based on exam and clinical finding, the patient is stable for discharge. Plan of care was discussed with patient. Patient verbalizes understanding and agrees to plan of care. This note was generated using Billboard Jungle software. It may contain errors in wording, punctuation, or spelling. Mukul Romano APRN.SANDY documented in this encounter [facility] 11-13-2022 Miscellaneous Notes Note that RX on med list says takes at bed time, RX says daily. Patient may take either time of day--whichever she prefers The following approved medication requests have been transmitted electronically. Requested Prescriptions Signed Prescriptions Disp Refills carbidopa-levodopa (SINEMET 10-100) 10-100 mg per tablet 90 tablet 3 Sig: Take 1 tablet by mouth once daily. Authorizing Provider: AGNIESZKA BRUCE MD Patient has been identified by name and date of : Yes Last office visit in this department: Visit date not found RX INSTRUCTIONS: Patient aware RX will be sent to pharmacy. No need to notify patient. Patient phones requesting refills as follows: Requested Prescriptions Pending Prescriptions Disp Refills carbidopa-levodopa (SINEMET 10-100) 10-100 mg per tablet 90 tablet 3 Sig: Take 1 tablet by mouth. Please review and advise. Izzy Chavez documented in this encounter [facility] 09-22-2022 Miscellaneous Notes Patient has been identified by name and date of : Yes Last office visit in this department: Visit date not found RX INSTRUCTIONS: Patient aware RX will be sent to pharmacy. No need to notify patient. Patient phones requesting refills as follows: Requested Prescriptions Pending Prescriptions Disp Refills traZODone (DESYREL) 50 mg tablet 45 tablet 3 Sig: take 1/2 tablet by mouth at bedtime Please review and advise. Mohan Weir documented in this encounter [facility] 06-24-2022 Miscellaneous Notes [place]irma Patient has been identified by name and date of : Yes, Patient phones for refill(s): Requested Prescriptions Pending Prescriptions Disp Refills losartan (COZAAR) 25 mg tablet [Pharmacy Med Name: LOSARTAN POTASSIUM 25 MG TAB] 30 tablet 2 Sig: TAKE 1 TABLET BY MOUTH EVERY DAY Date of last office visit in primary care: 04/27/2022 6 month follow-up: 12/09/2022 Last 2 Encounter Wt Readings: Date: Wt: 05/24/2022 77.2 kg (170 lb 3.2 oz) 04/27/2022 78.5 kg (173 lb) Previous labs/tests for medication: Blood Pressure: BUN Date Value 05/09/2022 19 mg/dL 12/30/2020 20 MG/DL 09/30/2019 17 mg/dL Sodium (mmol/L) Date Value 05/09/2022 139 09/30/2019 136 NA (mmol/L) Date Value 12/30/2020 134 Last 1 Encounter BP Readings: Date: BP: 05/24/2022 152/90 Please advise. Thank you. Kylee Santizo LPN documented in this encounter [facility] 05-24-2022 History of Present illness Narrative This note was created using MyNinesriter. Subjective Valentina Donahue is a 56 year old female. 56 year old female with PMH RLS and HTN presents for illness. Acute onset 2 days ago +sore throat +bilateral ear pain. +popping + pain +low grade fever Denies cough. Denies SOB. Denies dyspnea Denies body aches. Denies fatigue. Denies tobacco usage. The history is provided by the patient. No humanities and languages professor was used. Sore Throat This is a new problem. The current episode started in the past 7 days. The problem has been unchanged. Neither side of throat is experiencing more pain than the other. The maximum temperature recorded prior to her arrival was 100.4 - 100.9 F. The fever has been present for Less than 1 day. The pain is at a severity of 5/10. The pain is moderate. Associated symptoms include ear pain and headaches. Pertinent negatives include no abdominal pain, congestion, coughing, diarrhea, drooling, ear discharge, hoarse voice, plugged ear sensation, neck pain, shortness of breath, stridor, swollen glands, trouble swallowing or vomiting. She has had no exposure to strep or mono. She has tried nothing for the symptoms. The treatment provided no relief. PAST MEDICAL HISTORY Diagnosis Date C. difficile colitis 06/11/2012 Calculus of kidney 07/26/2006 Essential hypertension 01/10/2009 Impaired Fasting Glucose 07/15/2009 Resolved RLS (restless legs syndrome) Trigger ring finger of right hand 04/07/2016 Unspecified Essential Hypertension 01/10/2009 Urinary calculus, unspecified Renal stones PAST SURGICAL HISTORY Procedure Laterality Date ABDOMINAL SURGERY HX APPENDECTOMY HX COLONOSCOPY 04/11/2021 repeat in 5 years INCISE FINGER TENDON SHEATH Right 07/23/2016 Right ring trigger finger release LAPAROSCOPIC APPENDECTOMY 10/27/2008 PAST SURGICAL HISTORY OF wisdom teeth PAST SURGICAL HISTORY OF meredith excised from nose PAST SURGICAL HISTORY OF 2006 kidney stone removed ALLERGIES Aleve [Naproxen Sodium], Amoxicillin, Benadryl [Diphenhydramine Hcl], Ceftin [Cefuroxime Axetil], Erythromycin, Humabid [Other], Lisinopril, Macrobid [Nitrofurantoin Monohyd/M-Cryst], Nortriptyline, Penicillins, and Semprex-D [Acrivastine-Pseudoephedrine] MEDICATIONS losartan (COZAAR) 25 mg tablet Take 1 tablet by mouth once daily. carbidopa-levodopa (SINEMET 10-100) 10-100 mg per tablet Take 1 tablet by mouth daily at bedtime. traZODone (DESYREL) 50 mg tablet take 1/2 tablet by mouth at bedtime ibuprofen (MOTRIN) 200 mg tablet Take 2-3 tablets by mouth twice daily as needed for Pain. MULTIVITAMIN TAB Take by mouth. azithromycin (ZITHROMAX) 250 mg tablet Take 2 tablets by mouth once daily for 1 day, THEN 1 tablet once daily for 4 days. FAMILY HISTORY Problem Relation Age of Onset Hypertension Mother Cancer Mother Ovarian Osteoporosis Mother Heart Father pacemaker Hypertension Father Skin Cancer Sister not sure what type; had 2 skin cancer lesions excised Heart Maternal Grandmother from massive heart attack Social History Tobacco Use Smoking status: Never Smokeless tobacco: Never Vaping Use Vaping Use: Never used Substance Use Topics Alcohol use: Yes Comment: Occasionally Drug use: No Review of Systems Constitutional: Positive for fever. Negative for activity change, appetite change, chills, diaphoresis and fatigue. HENT: Positive for ear pain and sore throat. Negative for congestion, drooling, ear discharge, hoarse voice and trouble swallowing. Eyes: Negative for pain, discharge, redness and itching. Respiratory: Negative for apnea, cough, choking, chest tightness, shortness of breath and stridor. Cardiovascular: Negative for chest pain, palpitations and leg swelling. Gastrointestinal: Negative for abdominal pain, diarrhea and vomiting. Musculoskeletal: Negative for neck pain. Skin: Negative for color change and pallor. Allergic/Immunologic: Negative for environmental allergies, food allergies and immunocompromised state. Neurological: Positive for headaches. Hematological: Negative for adenopathy. Does not bruise/bleed easily. Psychiatric/Behavioral: Negative for agitation and behavioral problems. Objective BP 152/90 Pulse 105 Temp 37.9 C (100.2 F) Resp 21 Wt 77.2 kg (170 lb 3.2 oz) LMP 08/29/2010 SpO2 96% BMI 37.49 kg/m Physical Exam Vitals and nursing note reviewed. Constitutional: General: She is not in acute distress. Appearance: Normal appearance. She is normal weight. She is not ill-appearing, toxic-appearing or diaphoretic. HENT: Head: Normocephalic and atraumatic. Right Ear: Ear canal and external ear normal. Left Ear: Ear canal and external ear normal. Ears: Comments: Right TM erythematous and bulging Nose: Nose normal. No congestion or rhinorrhea. Mouth/Throat: Mouth: Mucous membranes are moist. Pharynx: Posterior oropharyngeal erythema (2 + enlarged tonsils bilaterally. Uvula midline) present. No oropharyngeal exudate. Eyes: General: Right eye: No discharge. Left eye: No discharge. Extraocular Movements: Extraocular movements intact. Conjunctiva/sclera: Conjunctivae normal. Pupils: Pupils are equal, round, and reactive to light. Cardiovascular: Rate and Rhythm: Normal rate and regular rhythm. Pulses: Normal pulses. Heart sounds: Normal heart sounds. No murmur heard. No friction rub. Pulmonary: Effort: Pulmonary effort is normal. No respiratory distress. Breath sounds: Normal breath sounds. No stridor. No wheezing, rhonchi or rales. Chest: Chest wall: No tenderness. Abdominal: General: Abdomen is flat. There is no distension. Palpations: Abdomen is soft. There is no mass. Tenderness: There is no abdominal tenderness. There is no right CVA tenderness, left CVA tenderness, guarding or rebound. Hernia: No hernia is present. Musculoskeletal: General: No swelling, tenderness, deformity or signs of injury. Normal range of motion. Cervical back: Normal range of motion and neck supple. No rigidity. Right lower leg: No edema. Left lower leg: No edema. Lymphadenopathy: Cervical: No cervical adenopathy. Skin: General: Skin is warm and dry. Coloration: Skin is not jaundiced or pale. Findings: No bruising, erythema, lesion or rash. Neurological: General: No focal deficit present. Mental Status: She is alert and oriented to person, place, and time. Cranial Nerves: No cranial nerve deficit. Sensory: No sensory deficit. Motor: No weakness. Coordination: Coordination normal. Gait: Gait normal. Psychiatric: Mood and Affect: Mood normal. Behavior: Behavior normal. Thought Content: Thought content normal. Judgment: Judgment normal. Assessment and Plan ASSESSMENT/PLAN: 1. Pharyngitis, unspecified etiology - ICD9: 462, ICD10: J02.9 (primary diagnosis) - suspect viral - Alere Strep Test NEGATIVE, no culture pending - Discussed supportive care treatment with fluids, rest and analgesia. - The patient may also use OTC cough and cold meds as needed, warm salt water gargles, throat lozenges and/or OTC throat spray as needed, and nasal saline gtts and suction prn. - Contagious dz precautions discussed- including considered contagious until on antibiotics for 24 hours - The patient should follow up in 3-5 days if symptoms persist or worsen - Call back if drooling, increased temperature, symptoms of dehydration and/or still sick in one week - STREP A MOLECULAR (POC) 2. Acute otitis media, right - ICD9: 382.9, ICD10: H66.91 - Will begin treatment with as per antibiotic as written, see orders - The patient should also be given OTC cough and cold meds as needed, warm salt water gargles, throat lozenges and/or OTC throat spray as needed, and nasal saline gtts and suction prn for the first 5-7 days of treatment. - Supportive care with plenty of fluids, rest, and analgesia prn. - Follow up in 3-5 days if symptoms persist or worsen. Izzy Cook APRN.AGILE COACH documented in this encounter [facility] 05-19-2022 Miscellaneous Notes Pt notified of results. Smitha Salvador LPN LEFT MESSAGE FOR PATIENT TO CALL OFFICE. 04/27/22 Agnieszka Bruce MD appt. Slight elevation of calcium and glucose. A1c stable at 5.9%. CBC within normal limits documented in this encounter [facility] 04-27-2022 History of Present illness Narrative This note was created using NoteWriter. Subjective Valentina Donahue is a 56 year old female. Patient presents with: F/U 6 months SUBJECTIVE: Valentina Donahue is a 56 year old year old lady here today for 6 month follow up appointment for review of medical conditions. BPs at home running higher in 130 to 150s range with most in 130 to 140s range. Moved BP med to AM instead of PM this AM (skipped last night). Just on losartan. RLS controlled with sinemet. Needs to get labs. Depression Screening 08/27/2017 09/20/2018 01/28/2022 04/27/2022 PHQ-2 Score 0 2 0 0 Depression screening tool completed and reviewed. Based on score and interview, patient is not at risk for depression. Screening tool discussed with patient, and I recommended no further intervention at this time. PAST MEDICAL HISTORY Diagnosis Date C. difficile colitis 06/11/2012 Calculus of kidney 07/26/2006 Essential hypertension 01/10/2009 Impaired Fasting Glucose 07/15/2009 Resolved RLS (restless legs syndrome) Trigger ring finger of right hand 04/07/2016 Unspecified Essential Hypertension 01/10/2009 Urinary calculus, unspecified Renal stones Current Outpatient Medications Medication Sig losartan (COZAAR) 25 mg tablet Take 1 tablet by mouth once daily. carbidopa-levodopa (SINEMET 10-100) 10-100 mg per tablet Take 1 tablet by mouth daily at bedtime. traZODone (DESYREL) 50 mg tablet take 1/2 tablet by mouth at bedtime ibuprofen (MOTRIN) 200 mg tablet Take 2-3 tablets by mouth twice daily as needed for Pain. MULTIVITAMIN TAB Take by mouth. No current facility-administered medications for this visit. Review of Systems Objective BP 116/72 Pulse 100 Temp 36.6 C (97.9 F) Resp 18 Wt 78.5 kg (173 lb) LMP 08/29/2010 SpO2 97% BMI 38.10 kg/m Last 5 Encounter Wt Readings: Date: Wt: 04/27/2022 78.5 kg (173 lb) 01/28/2022 78 kg (172 lb) 01/25/2022 78.2 kg (172 lb 6.4 oz) 09/09/2021 78.9 kg (174 lb) 04/07/2021 78.4 kg (172 lb 12.8 oz) No waist measurement recorded Estimated body mass index is 38.1 kg/m as calculated from the following: Height as of 04/07/21: 143.5 cm (4' 8.5). Weight as of this encounter: 78.5 kg (173 lb). Last 5 Encounter BP Readings: Date: BP: 04/27/2022 116/72 03/11/2022 146/83[BP Gerald average[ 01/28/2022 144/83[BP Gerald average[ 01/25/2022 130/76 09/09/2021 134/82 04/27/22 1641 04/27/22 1707 BP: 116/72 Pulse: 100 84 Resp: 18 Temp: 36.6 C (97.9 F) SpO2: 97% Weight: 78.5 kg (173 lb) Physical Exam Constitutional: Appearance: Normal appearance. HENT: Head: Normocephalic. Eyes: Conjunctiva/sclera: Conjunctivae normal. Cardiovascular: Rate and Rhythm: Normal rate and regular rhythm. Heart sounds: Normal heart sounds. Pulmonary: Effort: Pulmonary effort is normal. Breath sounds: Normal breath sounds. Musculoskeletal: Right lower leg: Edema (trace pretibial) present. Left lower leg: Edema (trace pretibial) present. Skin: General: Skin is warm and dry. Neurological: General: No focal deficit present. Mental Status: She is alert and oriented to person, place, and time. Psychiatric: Mood and Affect: Mood normal. Behavior: Behavior normal. Thought Content: Thought content normal. Judgment: Judgment normal. Last 5 Encounter Pulse Readings: Date: Pulse: 04/27/2022 100 03/11/2022 79 01/28/2022 89 01/25/2022 101 09/09/2021 92 Assessment and Plan Encounter Diagnosis ICD-10-CM 1. Essential hypertension I10 2. RLS (restless legs syndrome) G25.81 3. Obesity, Class II, BMI 35-39.9 E66.9 4. Elevated hemoglobin A1c R73.09 HGB A1C Above issues addressed with patient. Patient involved in shared decision making for management of medical issues. History and medications reviewed. Epic updated as needed Refills and/or prescriptions taken care of and meds adjusted as indicated after reviewed history, exam and labs. Health Maintenance reviewed. Updated record and/or ordered tests as recorded. Encouraged on efforts at healthy diet and regular exercise and adequate sleep. BP controlled. Continue present management. RLS also controlled well. Stay on Sinemet. Weight stable to slowly coming down. Needs to keep working on diet and exercise with lifestyle changes for effective weight loss as well as prevention of DM, and control of BP and lipids. Extended labs through the next 2 months. Added HgA1C Agnieszka Bruce MD documented in this encounter [facility] 03-17-2022 Miscellaneous Notes Pt notified of provider message. Pt voiced understanding. Kylie Cardona LPN Left message to call office. 03/17/2022 3:14 PM Jon Kearney Ma LEFT MESSAGE FOR PATIENT TO CALL OFFICE. Please let her know sent in for losartan 25 mg, she should keep her follow up as scheduled and we can recheck on bp and how she is doing on medication with that appointment, if possible she should monitor blood pressure at home a couple times a week, write this down and bring with her to her follow up. Patient returned call and went over notes from Macey Neri ECONOMIC RESEARCH ASSISTANT with understanding. Patient said she does have problems with high bp at times. She is willing to try the Losartan rx. She uses [facility] for her pharmacy and gets 30 day rx with refills. Patient would like call back. LEFT MESSAGE FOR PATIENT TO CALL OFFICE. Please call patient and see if she has a history of high blood pressure, it is not in her problem list but it does look like she was on lisinopril in the past. Lisinopril is in her allergies, I do think with her blood pressures being where they are she does need a low dose of medication, would she be agreeable to trying losartan? Manual Readin/84 Pulse: 80 BP Gerald average:146/83 P: 79 Repeat BP Check: 152/83 P77 #1 150/83 P75 #2 149/85 P77 #3 145/82 P78 #4 141/83 P79 #5 138/83 P84 #6 Reason for blood pressure check - Last BP elevated Patient is: Taking medication as prescribed Yes Took medication today No If no, date medication last taken 03/10/22 Experiencing side effects No BP was elevated at last appt 01/28/22. No BP medication changes were made at that time. Taking all medications as prescribed. Denies any chest pain, shortness of breath, dizziness, or headaches. Occasional caffeine use; none today. No personal history of tobacco; no current exposure. Alert and oriented. Pt has been identified by name and birthdate: Yes Allergies reviewed: Yes Latex allergy: no. Medication - prescribed and OTC reviewed and updated: Yes Do you need any prescription refills prior to your next visit: No Health Maintenance: Reviewed and not up to date and provider notified Patient advised that she would be contacted after review by PCP. Celina Tanner LPN documented in this encounter [facility] 03-11-2022 History of Present illness Narrative Manual Readin/84 Pulse: 80 BP Gerald average:146/83 P: 79 Repeat BP Check: 152/83 P77 #1 150/83 P75 #2 149/85 P77 #3 145/82 P78 #4 141/83 P79 #5 138/83 P84 #6 Reason for blood pressure check - Last BP elevated Patient is: Taking medication as prescribed Yes Took medication today No If no, date medication last taken 03/10/22 Experiencing side effects No BP was elevated at last appt 01/28/22. No BP medication changes were made at that time. Taking all medications as prescribed. Denies any chest pain, shortness of breath, dizziness, or headaches. Occasional caffeine use; none today. No personal history of tobacco; no current exposure. Alert and oriented. Pt has been identified by name and birthdate: Yes Allergies reviewed: Yes Latex allergy: no. Medication - prescribed and OTC reviewed and updated: Yes Do you need any prescription refills prior to your next visit: No Health Maintenance: Reviewed and not up to date and provider notified Patient advised that she would be contacted after review by PCP. Celina Tanner LPN documented in this encounter [facility] 02-02-2022 Miscellaneous Notes Pt notified of results and provider message. Kylie Cardona LPN VM left for patient to call PCP office for result copied below. Ashley Leiva RN COPIED: 01/31/22 Gerald Espinal MD chest X-ray within normal limits. documented in this encounter [facility] 01-28-2022 Miscellaneous Notes chest X-ray within normal limits. documented in this encounter [facility] 01-28-2022 Progress note Formatting of t his note might be different from the original. chest X-ray within normal limits. [facility] 01-28-2022 History of Present illness Narrative This note was created using [employer]. Subjective Valentina Donahue is a 56 year old female was here for persistent symptoms of cough, fever, ear pain, and sore throat for 4 days, with worsening symptoms. She was seen at and tested negative for Covid and flu. She was taking over the counter cough medication with no relief. Review of Systems Constitutional: Negative for appetite change and fatigue. HENT: Positive for ear pain. Negative for congestion. Respiratory: Negative for chest tightness and shortness of breath. Cardiovascular: Negative. Gastrointestinal: Negative for diarrhea, nausea and vomiting. ACTIVE PROBLEM LIST Impaired Fasting Glucose Rls (Restless Legs Syndrome) Insomnia Obesity Postmenopausal Atrophic Vaginitis Trigger Ring Finger of Right Hand Obesity, Class II, Bmi 35-39.9 Stress Incontinence Elevated Blood Pressure Reading Current Outpatient Medications Medication Sig benzonatate (TESSALON PERLE) 100 mg capsule Take 2 capsules by mouth three times daily as needed for up to 10 days. carbidopa-levodopa (SINEMET 10-100) 10-100 mg per tablet Take 1 tablet by mouth daily at bedtime. traZODone (DESYREL) 50 mg tablet take 1/2 tablet by mouth at bedtime estradiol (ESTRACE) 0.01 % (0.1 mg/gram) vaginal cream Apply pea-sized amount to perineum/urethral area daily as directed ibuprofen (MOTRIN) 200 mg tablet Take 2-3 tablets by mouth twice daily as needed for Pain. MULTIVITAMIN TAB Take by mouth. albuterol HFA (PROVENTIL HFA, VENTOLIN HFA) 90 mcg/actuation inhaler Inhale 2 Puffs as instructed every 6 hours as needed for wheezing/shortness of breath. azithromycin (ZITHROMAX Z-NANDA) 250 mg tablet Take 2 tablets day one, then, 1 tablet daily until gone. No current facility-administered medications for this visit. Objective BP 144/83 Pulse 89 Temp 36.2 C (97.1 F) Resp 18 Wt 78 kg (172 lb) LMP 08/29/2010 SpO2 97% BMI 37.88 kg/m Physical Exam Constitutional: General: She is not in acute distress. Appearance: She is obese. She is not ill-appearing. HENT: Head: Normocephalic. Right Ear: Tympanic membrane normal. Left Ear: A middle ear effusion is present. Nose: Congestion present. No rhinorrhea. Right Sinus: No maxillary sinus tenderness or frontal sinus tenderness. Left Sinus: No maxillary sinus tenderness or frontal sinus tenderness. Mouth/Throat: Pharynx: No oropharyngeal exudate. Cardiovascular: Rate and Rhythm: Normal rate and regular rhythm. Pulmonary: Effort: No respiratory distress. Breath sounds: Rhonchi present. No wheezing. Abdominal: Tenderness: There is no abdominal tenderness. Musculoskeletal: Cervical back: No tenderness. Right lower leg: No edema. Left lower leg: No edema. Lymphadenopathy: Cervical: No cervical adenopathy. Neurological: Mental Status: She is alert. Assessment and Plan ASSESSMENT/PLAN: 1. Bronchitis with bronchospasm - ICD9: 490, ICD10: J20.9 (primary diagnosis) - XR CHEST 2V FRONTAL/LAT - ALBUTEROL SULFATE HFA 90 MCG/ACTUATION AEROSOL INHALER - AZITHROMYCIN 250 MG TABLET Discussed medication dosage, usage, goals of therapy, and side effects. 2. Elevated blood pressure reading - ICD9: 796.2, ICD10: R03.0 - Encouraged dietary sodium restriction/DASH diet - Recommended regular aerobic exercise. - Discussed need and benefit for weight loss. - Reviewed risks of HTN and principles of treatment 3. Obesity, Class II, BMI 35-39.9 - ICD9: 278.00, ICD10: E66.9 Weight increasing - Behavioral intervention Gerald Espinal MD documented in this encounter [facility] 01-25-2022 History of Present illness Narrative Subjective Cough Associated symptoms include ear pain, headaches and sore throat. Pertinent negatives include no chest pain, no chills and no myalgias. Valentina Donahue is a 56 year old female who presents with chest congestion, cough, sore throat, headache, diarrhea since yesterday. She had a fever at home of 100 degrees F. She has been taking Cold KRZYSZTOF medication (OTC). She got her flu shot 2 days ago. Review of Systems Constitutional: Positive for fever. Negative for chills. HENT: Positive for congestion, ear pain and sore throat. Respiratory: Positive for cough. Cardiovascular: Negative for chest pain. Gastrointestinal: Positive for diarrhea. Negative for nausea and vomiting. Musculoskeletal: Negative for myalgias. Neurological: Positive for headaches. BP 130/76 Pulse 101 Temp 37.2 C (99 F) Resp 18 Wt 78.2 kg (172 lb 6.4 oz) LMP 08/29/2010 SpO2 96% BMI 37.97 kg/m PAST MEDICAL HISTORY Diagnosis Date C. difficile colitis 06/11/2012 Calculus of kidney 07/26/2006 Essential hypertension 01/10/2009 Impaired Fasting Glucose 07/15/2009 Resolved RLS (restless legs syndrome) Trigger ring finger of right hand 04/07/2016 Unspecified Essential Hypertension 01/10/2009 Urinary calculus, unspecified Renal stones PAST SURGICAL HISTORY Procedure Laterality Date ABDOMINAL SURGERY HX APPENDECTOMY HX COLONOSCOPY 04/11/2021 repeat in 5 years INCISE FINGER TENDON SHEATH Right 07/23/2016 Right ring trigger finger release LAPAROSCOPIC APPENDECTOMY 10/27/2008 PAST SURGICAL HISTORY OF wisdom teeth PAST SURGICAL HISTORY OF meredith excised from nose PAST SURGICAL HISTORY OF 2005 kidney stone removed ALLERGIES Aleve [Naproxen Sodium], Amoxicillin, Benadryl [Diphenhydramine Hcl], Ceftin [Cefuroxime Axetil], Erythromycin, Humabid [Other], Lisinopril, Macrobid [Nitrofurantoin Monohyd/M-Cryst], Nortriptyline, Penicillins, and Semprex-D [Acrivastine-Pseudoephedrine] MEDICATIONS carbidopa-levodopa (SINEMET 10-100) 10-100 mg per tablet Take 1 tablet by mouth daily at bedtime. traZODone (DESYREL) 50 mg tablet take 1/2 tablet by mouth at bedtime estradiol (ESTRACE) 0.01 % (0.1 mg/gram) vaginal cream Apply pea-sized amount to perineum/urethral area daily as directed ibuprofen (MOTRIN) 200 mg tablet Take 2-3 tablets by mouth twice daily as needed for Pain. MULTIVITAMIN TAB Take by mouth. benzonatate (TESSALON PERLE) 100 mg capsule Take 2 capsules by mouth three times daily as needed for up to 10 days. FAMILY HISTORY Problem Relation Age of Onset Hypertension Mother Cancer Mother Ovarian Osteoporosis Mother Heart Father pacemaker Hypertension Father Skin Cancer Sister not sure what type; had 2 skin cancer lesions excised Heart Maternal Grandmother from massive heart attack Social History Tobacco Use Smoking status: Never Smokeless tobacco: Never Vaping Use Vaping Use: Never used Substance Use Topics Alcohol use: Yes Comment: Occasionally Drug use: No Objective Physical Exam Vitals and nursing note reviewed. Constitutional: Appearance: She is obese. HENT: Right Ear: Tympanic membrane, ear canal and external ear normal. Left Ear: Tympanic membrane, ear canal and external ear normal. Mouth/Throat: Mouth: Mucous membranes are moist. Pharynx: Oropharynx is clear. Uvula midline. No oropharyngeal exudate or posterior oropharyngeal erythema. Cardiovascular: Rate and Rhythm: Normal rate and regular rhythm. Heart sounds: Normal heart sounds. Pulmonary: Effort: Pulmonary effort is normal. No respiratory distress. Breath sounds: Normal breath sounds. No wheezing or rales. Lymphadenopathy: Cervical: No cervical adenopathy. Skin: General: Skin is warm and dry. Findings: No erythema or rash. Neurological: Mental Status: She is alert. ASSESSMENT/PLAN: 1. Viral URI with cough - ICD9: 465.9, ICD10: J06.9 - Discussed viral etiology and rationale for treatment. - Symptomatic treatment with prn analgesia - Supportive care with fluids and rest - COVID WITH FLUA+B, ROUTINE - BENZONATATE 100 MG CAPSULE - Follow-up with your PCP in 3-5 days if symptoms have not improved or sooner if symptoms worsen - Discussed red flags and need for immediate medical evaluation if any occur. - Discussed supportive care treatment with fluids, rest and analgesia. - Discussed expected course of illness Rafaela Hand APRN.CNP documented in this encounter [facility] 01-25-2022 Instructions Rafaela Hand APRN.CNP - 01/25/2022 12:24 PM EST ASSESSMENT/PLAN: 1. Viral URI with cough - ICD9: 465.9, ICD10: J06.9 - Discussed viral etiology and rationale for treatment. - Symptomatic treatment with prn analgesia - Supportive care with fluids and rest - COVID WITH FLUA+B, ROUTINE - BENZONATATE 100 MG CAPSULE - Follow-up with your PCP in 3-5 days if symptoms have not improved or sooner if symptoms worsen - Discussed red flags and need for immediate medical evaluation if any occur. - Discussed supportive care treatment with fluids, rest and analgesia. - Discussed expected course of illness Rafaela Hand APRN.CNP Treatment for Viral Upper Respiratory Tract Infections Your body will kill off the virus by itself. Additionally, you can prime your body's immune system. This may help you get better more quickly. Drink lots of fluids - at least one gallon of non-caffeinated liquids per day Make sure you are eating well Get plenty of rest - at least 8 hours of sleep per night for adults and more for children We do not have any medications that kill off these viruses. Antibiotics are used to treat bacterial infections; however, they are not active against viral infections. There are some things that might help you feel better, though. Vaporizers, humidifiers, hot showers, and hot fluids help open respiratory and sinus passages [place] may offer relief of nasal and head congestion Adama's Vapor Rub placed on a hot towel and draped over the head may relieve congestion Tylenol and Advil help control fevers and headaches Salt water gargles help relieve sore throats Chloraceptic spray or throat lozenges may also help relieve sore throat symptoms Occasionally, viral infections turn into something more serious. You should see your doctor or return to the Urgent Care if: You have fevers for longer than five days You have fevers above 102 degrees You are still sick after 10 days You have shortness of breath or wheezing After several days you are getting worse rather than better documented in this encounter [facility] 09-09-2021 Instructions Hamilton Oakes APRN.[employer] - 09/09/2021 9:51 AM EDT For weight loss - Check the happy walk on [employer]. For weight and blood sugar control - Limit carbohydrate intake - sweets, sugary foods or drinks and limit portion sizes of bread rice potatoes, pasta Avoid fast foods and processed foods. Avoid excess salt in your diet. documented in this encounter [facility] 09-09-2021 History of Present illness Narrative SUBJECTIVE: Valentina Donahue is a 54 year old female. COVID-19 VACCINE(1) Never done BP CONTROLLED (<130/80) Never done PAP TESTING due on 02/18/2022 HPV TESTING due on 02/18/2022 HPI Notes consumes SAD. Does try to eat healthy. Notes she is not consistently exercising. Weight is stable. Works at [employer]. She reports stopping lisinopril due to feeling lightheaded. HTN: Ms. Donahue indicates that she is without chest pain, palpitations, dyspnea, peripheral edema, orthopnea, fatigue and PND. Last 14 Encounter BP Readings: Date: BP: 09/09/2021 134/82 04/11/2021 130/64 04/07/2021 138/82 03/12/2021 128/78 08/19/2020 122/78 06/25/2020 134/86 06/10/2020 112/62 01/04/2020 120/70 12/14/2019 148/82 11/13/2019 152/80 05/06/2019 142/96 04/04/2019 110/76 03/26/2019 132/86 01/14/2019 118/78 Using CPAP for DEVANTE, does help Patient's last HgA1C was Hemoglobin A1C (%) Date Value 08/30/2021 5.8 09/30/2019 6.0 08/26/2018 5.4 HGB A1C (no units) Date Value 12/30/2020 6.0 ) Notes current medication for sleep is helpful. No adverse effects noted. Review of Systems Constitutional: Negative. Respiratory: Negative. Cardiovascular: Negative. Psychiatric/Behavioral: Positive for sleep disturbance. Objective BP 134/82 Pulse 92 Resp 16 Wt 78.9 kg (174 lb) LMP 08/29/2010 BMI 38.32 kg/m Physical Exam Vitals and nursing note reviewed. Constitutional: General: She is not in acute distress. Appearance: She is obese. She is not ill-appearing or toxic-appearing. HENT: Head: Normocephalic and atraumatic. Eyes: General: No scleral icterus. Right eye: No discharge. Left eye: No discharge. Conjunctiva/sclera: Conjunctivae normal. Neck: Thyroid: No thyromegaly or thyroid tenderness. Vascular: No carotid bruit. Cardiovascular: Rate and Rhythm: Normal rate and regular rhythm. Pulses: Normal pulses. Heart sounds: Normal heart sounds. Pulmonary: Effort: Pulmonary effort is normal. Breath sounds: Normal breath sounds. Abdominal: General: Bowel sounds are normal. Palpations: Abdomen is soft. Musculoskeletal: Right lower leg: No edema. Left lower leg: No edema. Lymphadenopathy: Cervical: No cervical adenopathy. Skin: General: Skin is warm and dry. Neurological: General: No focal deficit present. Mental Status: She is alert and oriented to person, place, and time. ALLERGIES Allergen Reactions Aleve [Naproxen Sod* Amoxicillin Benadryl [Diphenhyd* Rash Ceftin [Cefuroxime * Erythromycin Humabid [Other] Macrobid [Nitrofura* Nortriptyline Penicillins Rash Semprex-D [Acrivast* Medications carbidopa-levodopa (SINEMET 10-100) 10-100 mg per tablet Take 1 tablet by mouth daily at bedtime. traZODone (DESYREL) 50 mg tablet take 1/2 tablet by mouth at bedtime estradiol (ESTRACE) 0.01 % (0.1 mg/gram) vaginal cream Apply pea-sized amount to perineum/urethral area daily as directed ibuprofen (MOTRIN) 200 mg tablet Take 2-3 tablets by mouth twice daily as needed for Pain. MULTIVITAMIN TAB Take by mouth. lisinopril (ZESTRIL, PRINIVIL) 5 mg tablet Take 1 tablet by mouth once daily. PAST MEDICAL HISTORY Diagnosis Date C. difficile colitis 06/11/2012 Calculus of kidney 07/26/2006 Essential hypertension 01/10/2009 Impaired Fasting Glucose 07/15/2009 Resolved RLS (restless legs syndrome) Trigger ring finger of right hand 04/07/2016 Unspecified Essential Hypertension 01/10/2009 Urinary calculus, unspecified Renal stones Social History Tobacco Use Smoking status: Never Smoker Smokeless tobacco: Never Used Vaping Use Vaping Use: Never used Substance Use Topics Alcohol use: Yes Comment: Occasionally Drug use: No Component Latest Ref Rng & Units 08/30/2021 Protein, Total 6.3 - 8.0 g/dL 7.0 Albumin 3.9 - 4.9 g/dL 4.4 Calcium 8.5 - 10.2 mg/dL 10.1 Bilirubin, Total 0.2 - 1.3 mg/dL 0.4 Alkaline Phosphatase 34 - 123 U/L 56 AST 13 - 35 U/L 17 ALT 7 - 38 U/L 18 Glucose 74 - 99 mg/dL 96 BUN 7 - 21 mg/dL 21 Creatinine 0.58 - 0.96 mg/dL 0.85 Sodium 136 - 144 mmol/L 139 Potassium 3.7 - 5.1 mmol/L 4.4 Chloride 97 - 105 mmol/L 101 CO2 22 - 30 mmol/L 26 Anion Gap 9 - 18 mmol/L 12 eGFR >=60 mL/min/1.73m 81 WBC 3.70 - 11.00 k/uL 6.36 RBC 3.90 - 5.20 m/uL 5.19 Hemoglobin 11.5 - 15.5 g/dL 14.5 Hematocrit 36.0 - 46.0 % 46.8 (H) MCV 80.0 - 100.0 fL 90.2 MCH 26.0 - 34.0 pg 27.9 MCHC 30.5 - 36.0 g/dL 31.0 RDW-CV 11.5 - 15.0 % 13.6 Platelet Count 150 - 400 k/uL 317 MPV 9.0 - 12.7 fL 10.5 Absolute nRBC <0.01 k/uL <0.01 Hemoglobin A1C 4.3 - 5.6 % 5.8 (H) Estimated Average Glucose mg/dL 120 ASSESSMENT/PLAN: 1. Obesity, Class II, BMI 35-39.9 - ICD9: 278.00, ICD10: E66.9 (primary diagnosis) Endorse portion control, avoidance of fast foods and processed foods and daily exercise, start low and go slow to increase to 1 hour/day 2. Encounter for immunization - ICD9: V03.89, ICD10: Z23 - PFIZER-BIONTECH COVID-19 VACCINE, AGE 12+ YR (GRANADOS TOP) 3. Screening for cervical cancer - ICD9: V76.2, ICD10: Z12.4 Sees Yumiko Todd at [facility]; last seen 2020 4. Impaired fasting glucose - ICD9: 790.21, ICD10: R73.01 5. Essential hypertension - ICD9: 401.9, ICD10: I10 Blood pressure at upper limits of normal, stopped taking lisinopril due to feeling lightheaded. Endorsed DASH diet and weight loss for now. Continue to monitor. - COMP METABOLIC PANEL - CBC + DIFF - TSH BLD 6. RLS (restless legs syndrome) - ICD9: 333.94, ICD10: G25.81 - CARBIDOPA 10 MG-LEVODOPA 100 MG TABLET - COMP METABOLIC PANEL - CBC + DIFF - TSH BLD 7. Psychophysiological insomnia - ICD9: 307.42, ICD10: F51.04 - TRAZODONE 50 MG TABLET Hamilton Oakes APRN.[employer] 1. Hypertension, unspecified type - ICD9: 401.9, ICD10: I10 (primary diagnosis) - controlled - continue lisinopril 5 mg - Encourage dietary sodium restriction/DASH diet - Recommend regular aerobic exercise. - Goal of BP <130/80 Advised: For weight loss - Check the happy walk on youtube. For weight and blood sugar control - Limit carbohydrate intake - sweets, sugary foods or drinks and limit portion sizes of bread rice potatoes, pasta Avoid fast foods and processed foods. Avoid excess salt in your diet. 6 mo follow up MD Hamilton Jackson APRN.[employer] Medical Decision Making: Problems: Moderate: 2+ stable chronic illnesses Data: Unique test(s) ordered: 3+ Risk: Moderate: Drug management Medical Decision Making Level: 4 - Moderate documented in this encounter [facility] 07-02-2021 Miscellaneous Notes Patient returned call and went over notes below. Patient said she was told had no refills left from the pharmacy. Phoned pharmacy and was told to early to fill, rx not due until 07/07. Phoned patient back and gave her information. Patient has refills available at pharmacy. Left message to call office. 07/02/2021 1:24 PM Patient has been identified by name and date of : Yes Pending Prescriptions Disp Refills CARBIDOPA 10 MG-LEVODOPA 100 MG TABLET 30 tablet 11 Sig: Take 1 tablet by mouth daily at bedtime. SAGE: No RX INSTRUCTIONS: Patient aware RX will be sent to pharmacy. No need to notify patient. Kaylee Field [facility] documented in this encounter [facility] 03-12-2021 Instructions Agnieszka Bruce MD - 03/12/2021 3:57 PM EST Images from the original note were not included. To prevent diabetes, aerobic exercise 20 minutes 5 days a week. Walking, biking , swimming ,etc. Eat less pasta and more vegetables and protein. Miralax/Dulcolax Bowel Prep For this bowel preparation, you will need to purchase the following medications at any pharmacy: Over the counter Miralax (generic name is polyethylene glycol) 8.3 oz or 238 grams Four (4) Dulcolax (generic name is Bisacodyl) tablets 3 days prior to your procedure, you need to be on a low fiber diet (Such as popcorn, beans, seeds, nuts, salad and raw vegetables, corn, fresh and dried fruit and multi-grain bread) YOU MUST BE ON CLEAR LIQUIDS FOR 2 FULL DAYS PRIOR TO YOUR COLONOSCOPY Day one which would be two days before your colonoscopy, you will need to be on clear liquids all day. You may have coffee or tea-black only (no cream), clear broths (beef, chicken or vegetable), apple juice, white grape juice, pop, Gatorade, Powerade, lemonade, Jello, popsicles, Alex-aid, and water-But nothing red or dark purple in color and no dairy products, tomato or orange juices. Day two which would be the day before your colonoscopy continue clear liquids all day as above. And follow the instructions below: 8:00 AM - Mix the Miralax with 64 oz of Gatorade or another clear liquid of choice and place in refrigerator. Most people say the drink is better cold. 4:00 PM - Take 2 of the Dulcolax tablets with 8 oz of water. 6:00 PM - Start to drink the Miralax mixture. You must finish it by midnight. 8:00 PM - Take the other 2 Dulcolax tablets with 8 oz of water. You may continue to drink clear liquids while you are taking your prep and after you finish it as long as it is before midnight. Drink lots of fluids so you don t become dehydrated. Nothing to drink after midnight the night before the procedure unless you are instructed differently by the physician or nurses. Please remember to take your normal medications the morning of the procedure with a small sip of water especially your blood pressure medications. If you are diabetic, you need to contact your physician about how to take your diabetic medications and/or insulin during the prepping period and the day of your procedure. Any questions please call: Dr. Valentin or Dr. Richards [phone] Adeline Fuentes [phone] Dr. Benavidez [phone] [facility] nurses [phone] documented in this encounter [facility] 03-12-2021 History of Present illness Narrative This note was created using [employer]. Subjective Valentina Donahue is a 55 year old female. Patient presents with: F/U 6 months SUBJECTIVE: Valentina Donahue is a 55 year old year old lady here today for 6 month follow up appointment for review of medical conditions. Not doing regular exercise. Tolerates meds well. Does have BP cuff. Was running 130s. Not checked lately. Sinemet still effective,. Was walking dog after work but quit that. Dog pulls on leash so stopped. PAST MEDICAL HISTORY Diagnosis Date C. difficile colitis 06/11/2012 Calculus of kidney 07/26/2006 Essential hypertension 01/10/2009 Impaired Fasting Glucose 07/15/2009 Resolved RLS (restless legs syndrome) Trigger ring finger of right hand 04/07/2016 Unspecified Essential Hypertension 01/10/2009 Urinary calculus, unspecified Renal stones Current Outpatient Medications Medication Sig traZODone (DESYREL) 50 mg tablet take 1/2 tablet by mouth at bedtime estradiol (ESTRACE) 0.01 % (0.1 mg/gram) vaginal cream Apply pea-sized amount to perineum/urethral area daily as directed carbidopa-levodopa (SINEMET 10-100) 10-100 mg per tablet Take 1 tablet by mouth daily at bedtime. ibuprofen (MOTRIN) 200 mg tablet Take 2-3 tablets by mouth twice daily as needed for Pain. lisinopril (ZESTRIL, PRINIVIL) 5 mg tablet Take 1 tablet by mouth once daily. (Patient not taking: Reported on 03/12/2021 ) MULTIVITAMIN TAB Take one(1) tablet daily. (Patient not taking: ) No current facility-administered medications for this visit. Review of Systems Objective BP 142/82 Pulse 82 Wt 78.9 kg (174 lb) LMP 08/29/2010 BMI (P) 39.01 kg/m Last 5 Encounter BP Readings: Date: BP: 03/12/2021 142/82 08/19/2020 122/78 06/25/2020 134/86 06/10/2020 112/62 01/04/2020 120/70 Last 5 Encounter Wt Readings: Date: Wt: 03/12/2021 78.9 kg (174 lb) 06/10/2020 79 kg (174 lb 3.2 oz) 01/04/2020 78 kg (172 lb) 12/14/2019 78.5 kg (173 lb) 11/13/2019 78 kg (172 lb) 03/12/21 1515 03/12/21 1619 BP: 142/82 128/78 Pulse: 82 Weight: 78.9 kg (174 lb) Physical Exam Constitutional: Appearance: Normal appearance. She is obese. HENT: Head: Normocephalic. Eyes: Conjunctiva/sclera: Conjunctivae normal. Cardiovascular: Rate and Rhythm: Normal rate and regular rhythm. Heart sounds: Normal heart sounds. Pulmonary: Effort: Pulmonary effort is normal. Breath sounds: Normal breath sounds. Skin: General: Skin is warm and dry. Neurological: General: No focal deficit present. Mental Status: She is alert and oriented to person, place, and time. Psychiatric: Mood and Affect: Mood normal. Behavior: Behavior normal. Thought Content: Thought content normal. Judgment: Judgment normal. reviewed November labs. Hemoglobin A1C (%) Date Value 09/30/2019 6.0 08/26/2018 5.4 08/07/2017 5.7 07/18/2016 5.7 07/11/2015 5.8 HGB A1C (no units) Date Value 12/30/2020 6.0 Assessment and Plan Encounter Diagnosis ICD-10-CM 1. RLS (restless legs syndrome) G25.81 carbidopa-levodopa (SINEMET 10-100) 10-100 mg per tablet 2. Essential hypertension I10 COMP METABOLIC PANEL CBC 3. Class 2 obesity due to excess calories without serious comorbidity with body mass index (BMI) of 39.0 to 39.9 in adult E66.09 Z68.39 4. Special screening for malignant neoplasms, colon Z12.11 COLONOSCOPY SCREENING COVID 19 PRE-OP TESTING B/O 5. Need for vaccination Z23 TETANUS/DIPTHERIA BOOSTER (OVER 7), PF IM 6. Elevated hemoglobin A1c R73.09 COMP METABOLIC PANEL HGB A1C ASSESSMENT/PLAN: 1. RLS (restless legs syndrome) - ICD9: 333.94, ICD10: G25.81 (primary diagnosis) Continue present management. - CARBIDOPA 10 MG-LEVODOPA 100 MG TABLET 2. Essential hypertension - ICD9: 401.9, ICD10: I10 - fair control - Continue current medication(s) - Recommended regular aerobic exercise. - Goal of BP <130/80 - COMP METABOLIC PANEL - CBC 3. Class 2 obesity due to excess calories without serious comorbidity with body mass index (BMI) of 39.0 to 39.9 in adult - ICD9: 278.00, V85.39, ICD10: E66.09, Z68.39 Needs to keep working on diet and exercise with lifestyle changes for effective weight loss as well as prevention of DM, and control of BP and lipids. 4. Special screening for malignant neoplasms, colon - ICD9: V76.51, ICD10: Z12.11 - COLONOSCOPY SCREENING - COVID 19 PRE-OP TESTING B/O 5. Need for vaccination - ICD9: V05.9, ICD10: Z23 - TETANUS/DIPTHERIA BOOSTER (OVER 7), PF IM 6. Elevated hemoglobin A1c - ICD9: 790.29, ICD10: R73.09 Needs to keep working on diet and exercise with lifestyle changes for effective weight loss as well as prevention of DM, and control of BP and lipids. - COMP METABOLIC PANEL - HGB A1C Above issues addressed with patient. Patient involved in shared decision making for management of medical issues. History and medications reviewed. Epic updated as needed Refills and/or prescriptions taken care of and meds adjusted as indicated after reviewed history, exam and labs. Health Maintenance reviewed. Updated record and/or ordered tests as recorded. Encouraged on efforts at healthy diet and regular exercise and adequate sleep. Agnieszka Bruce MD Medical Decision Making: Problems: Moderate: 2+ stable chronic illnesses Data: Unique test(s) ordered: 3+ Risk: Moderate: Drug management Medical Decision Making Level: 4 - Moderate WSTR OPEN ACCESS QUESTIONNAIRE 1. Are you currently having any new or unusual stomach/gastrointestinal issues at this time such as constipation, diarrhea, abdominal pain, rectal bleeding etc?No 2. Do you have any difficulty swallowing? No 3. Do you have any implanted devices such as a defibrillator, pacemaker, cardiac stents or deep brain stimulator? No 4. Do you take any Blood thinners such as Coumadin, Plavix, Xarelto, Eliquis, Brilinta or any other blood thinner? No 5. Do you have any new or past cardiac (heart) or pulmonary (lung) issues? No 6. Do you currently use any oxygen? No 7. Have you been hospitalized in the past 6 weeks? No 8. Have you had difficulty with anesthesia previously re: Difficult intubation? No Other difficulty or allergic reaction to anesthesia other than post op N/V? No 9. Are you on dialysis? No 10. Do you have any bleeding disorders such as hemophilia or Factor 5? No 11. Are you an Insulin Dependent Diabetic? No IF ANY OF THE TOP ELEVEN QUESTIONS ARE ANSWERED YES PLEASE SCHEDULE THE PATIENT FOR A CONSULT. N/A 12. Is the patient's BMI 40 or greater? No:Body mass index is 39.01 kg/m (pended).. 13. Do you take any narcotics or anti-Anxiety medications? No 14. Do you use any illegal or recreational drugs including marijuana? No 15. Any alcohol use: Rarely 16. Have you been diagnosed with chronic liver disease such as hepatitis or cirrhosis? No 17. Do you have a seizure disorder? No 18. Do you have ulcerative colitis or Crohn's disease? No 19. Are you or could you be ? No 20. Any other important health information we should be made aware of prior to your colonoscopy? No To be completed by LIP: Did patient have MAC anesthesia with a previous endoscopy procedure? No Patient appropriate for Open Access Colonoscopy: Yes: appropriate for Open Access Procedure Checklist: Prior to closing the encounter: Complete questionnaire: Yes Confirm Prep order has been Ordered/Pended: Yes. ? Patient's procedure could be delayed if not given the script for the prep. Please ensure the prep is escripted to pharmacy or printed. Instructions for the prep will print upon filing or pending this smartset. Please send all open access questionnaires to [facility] Sched Pool #[id number] documented in this encounter [facility] 07-25-2013 History of Past i llness Narrative Problem Noted Date Resolved Date Obesity 07/25/2013 01/30/2022 C. difficile colitis 06/11/2012 08/03/2016 Last Assessment & Plan: No recurrence Essential hypertension 01/10/2009 7 Last Assessment & Plan: Hasn't been exercising for the last few months. Likes to walk. Has gained wt. Dr Bruce decreased her atenolol 6 mos ago but Valentina increased it back to 25 mg daily since not exercising. Acute appendicitis without mention of peritoniti s 10/31/2008 01/24/2013 Viral warts, unspecified 03/01/2008 013 XEROSIS///SEBACEOUS GLAND DIS NEC 03/01/2008 01/24/2013 Onychia and paronychia of toe 09/02/2007 Calculus of kidney 07/26/2006 08/03/2016 Actinic keratosis 11/09/2005 12/25/2013 Inflamed seborrheic keratosis 11/09/2005 SOLAR LENTIGENES///DYSCHROMIA OTHER 11/09/2005 01/24/2013 Throat pain 12/04/2004 01/24/2013 Other dyschromia 10/21/2004 11/09/2005 Other chronic dermatitis due to solar radiation 10/21/2004 12/25/2013 documented as of this encounter (statuses as of 01/30/2022) [facility] History of Past illness Narrative* Problem Noted Date Resolved Date Obesity 07/25/2013 01/30/2022 C. difficile colitis 06/11/2012 08/03/2016 Last Assessment & Plan: No recurrence Essential hypertension 01/10/2009 7 Last Assessment & Plan: Hasn't been exercising for the last few months. Likes to walk. Has gained wt. Dr Bruce decreased her atenolol 6 mos ago but Valentina increased it back to 25 mg daily since not exercising. Acute appendicitis without mention of peritoniti s 10/31/2008 01/24/2013 Viral warts, unspecified 03/01/2008 013 XEROSIS///SEBACEOUS GLAND DIS NEC 03/01/2008 01/24/2013 Onychia and paronychia of toe 09/02/2007 Calculus of kidney 07/26/2006 08/03/2016 Actinic keratosis 11/09/2005 12/25/2013 Inflamed seborrheic keratosis 11/09/2005 SOLAR LENTIGENES///DYSCHROMIA OTHER 11/09/2005 01/24/2013 Throat pain 12/04/2004 01/24/2013 Other dyschromia 10/21/2004 11/09/2005 Other chronic dermatitis due to solar radiation 10/21/2004 12/25/2013 documented as of this encounter (statuses as of 02/02/2022) [facility] History of Past illness Narrative* Problem Noted Date Resolved Date Obesity 07/25/2013 01/30/2022 C. difficile colitis 06/11/2012 08/03/2016 Last Assessment & Plan: No recurrence Essential hypertension 01/10/2009 7 Last Assessment & Plan: Hasn't been exercising for the last few months. Likes to walk. Has gained wt. Dr Bruce decreased her atenolol 6 mos ago but Valentina increased it back to 25 mg daily since not exercising. Acute appendicitis without mention of peritoniti s 10/31/2008 01/24/2013 Viral warts, unspecified 03/01/2008 013 XEROSIS///SEBACEOUS GLAND DIS NEC 03/01/2008 01/24/2013 Onychia and paronychia of toe 09/02/2007 Calculus of kidney 07/26/2006 08/03/2016 Actinic keratosis 11/09/2005 12/25/2013 Inflamed seborrheic keratosis 11/09/2005 SOLAR LENTIGENES///DYSCHROMIA OTHER 11/09/2005 01/24/2013 Throat pain 12/04/2004 01/24/2013 Other dyschromia 10/21/2004 11/09/2005 Other chronic dermatitis due to solar radiation 10/21/2004 12/25/2013 documented as of this encounter (statuses as of 03/11/2022) [facility] History of Past illness Narrative* Problem Noted Date Resolved Date Obesity 07/25/2013 01/30/2022 C. difficile colitis 06/11/2012 08/03/2016 Last Assessment & Plan: No recurrence Essential hypertension 01/10/2009 7 Last Assessment & Plan: Hasn't been exercising for the last few months. Likes to walk. Has gained wt. Dr Bruce decreased her atenolol 6 mos ago but Valentina increased it back to 25 mg daily since not exercising. Acute appendicitis without mention of peritoniti s 10/31/2008 01/24/2013 Viral warts, unspecified 03/01/2008 013 XEROSIS///SEBACEOUS GLAND DIS NEC 03/01/2008 01/24/2013 Onychia and paronychia of toe 09/02/2007 Calculus of kidney 07/26/2006 08/03/2016 Actinic keratosis 11/09/2005 12/25/2013 Inflamed seborrheic keratosis 11/09/2005 SOLAR LENTIGENES///DYSCHROMIA OTHER 11/09/2005 01/24/2013 Throat pain 12/04/2004 01/24/2013 Other dyschromia 10/21/2004 11/09/2005 Other chronic dermatitis due to solar radiation 10/21/2004 12/25/2013 documented as of this encounter (statuses as of 03/18/2022) [facility] History of Past illness Narrative* Problem Noted Date Resolved Date Obesity 07/25/2013 01/30/2022 C. difficile colitis 06/11/2012 08/03/2016 Last Assessment & Plan: No recurrence Essential hypertension 01/10/2009 7 Last Assessment & Plan: Hasn't been exercising for the last few months. Likes to walk. Has gained wt. Dr Bruce decreased her atenolol 6 mos ago but Valentina increased it back to 25 mg daily since not exercising. Acute appendicitis without mention of peritoniti s 10/31/2008 01/24/2013 Viral warts, unspecified 03/01/2008 013 XEROSIS///SEBACEOUS GLAND DIS NEC 03/01/2008 01/24/2013 Onychia and paronychia of toe 09/02/2007 Calculus of kidney 07/26/2006 08/03/2016 Actinic keratosis 11/09/2005 12/25/2013 Inflamed seborrheic keratosis 11/09/2005 SOLAR LENTIGENES///DYSCHROMIA OTHER 11/09/2005 01/24/2013 Throat pain 12/04/2004 01/24/2013 Other dyschromia 10/21/2004 11/09/2005 Other chronic dermatitis due to solar radiation 10/21/2004 12/25/2013 documented as of this encounter (statuses as of 04/09/2022) [facility] History of Past illness Narrative* Problem Noted Date Resolved Date Obesity 07/25/2013 01/30/2022 C. difficile colitis 06/11/2012 08/03/2016 Last Assessment & Plan: No recurrence Essential hypertension 01/10/2009 7 Last Assessment & Plan: Hasn't been exercising for the last few months. Likes to walk. Has gained wt. Dr Bruce decreased her atenolol 6 mos ago but Valentina increased it back to 25 mg daily since not exercising. Acute appendicitis without mention of peritoniti s 10/31/2008 01/24/2013 Viral warts, unspecified 03/01/2008 013 XEROSIS///SEBACEOUS GLAND DIS NEC 03/01/2008 01/24/2013 Onychia and paronychia of toe 09/02/2007 Calculus of kidney 07/26/2006 08/03/2016 Actinic keratosis 11/09/2005 12/25/2013 Inflamed seborrheic keratosis 11/09/2005 SOLAR LENTIGENES///DYSCHROMIA OTHER 11/09/2005 01/24/2013 Throat pain 12/04/2004 01/24/2013 Other dyschromia 10/21/2004 11/09/2005 Other chronic dermatitis due to solar radiation 10/21/2004 12/25/2013 documented as of this encounter (statuses as of 04/28/2022) [facility] History of Past illness Narrative* Problem Noted Date Resolved Date Obesity 07/25/2013 01/30/2022 C. difficile colitis 06/11/2012 08/03/2016 Last Assessment & Plan: No recurrence Essential hypertension 01/10/2009 7 Last Assessment & Plan: Hasn't been exercising for the last few months. Likes to walk. Has gained wt. Dr Bruce decreased her atenolol 6 mos ago but Valentina increased it back to 25 mg daily since not exercising. Acute appendicitis without mention of peritoniti s 10/31/2008 01/24/2013 Viral warts, unspecified 03/01/2008 013 XEROSIS///SEBACEOUS GLAND DIS NEC 03/01/2008 01/24/2013 Onychia and paronychia of toe 09/02/2007 Calculus of kidney 07/26/2006 08/03/2016 Actinic keratosis 11/09/2005 12/25/2013 Inflamed seborrheic keratosis 11/09/2005 SOLAR LENTIGENES///DYSCHROMIA OTHER 11/09/2005 01/24/2013 Throat pain 12/04/2004 01/24/2013 Other dyschromia 10/21/2004 11/09/2005 Other chronic dermatitis due to solar radiation 10/21/2004 12/25/2013 documented as of this encounter (statuses as of 05/08/2022) [facility] History of Past illness Narrative* Problem Noted Date Resolved Date Obesity 07/25/2013 01/30/2022 C. difficile colitis 06/11/2012 08/03/2016 Last Assessment & Plan: No recurrence Essential hypertension 01/10/2009 7 Last Assessment & Plan: Hasn't been exercising for the last few months. Likes to walk. Has gained wt. Dr Bruce decreased her atenolol 6 mos ago but Valentina increased it back to 25 mg daily since not exercising. Acute appendicitis without mention of peritoniti s 10/31/2008 01/24/2013 Viral warts, unspecified 03/01/2008 013 XEROSIS///SEBACEOUS GLAND DIS NEC 03/01/2008 01/24/2013 Onychia and paronychia of toe 09/02/2007 Calculus of kidney 07/26/2006 08/03/2016 Actinic keratosis 11/09/2005 12/25/2013 Inflamed seborrheic keratosis 11/09/2005 SOLAR LENTIGENES///DYSCHROMIA OTHER 11/09/2005 01/24/2013 Throat pain 12/04/2004 01/24/2013 Other dyschromia 10/21/2004 11/09/2005 Other chronic dermatitis due to solar radiation 10/21/2004 12/25/2013 documented as of this encounter (statuses as of 05/19/2022) [facility] of Past illness Narrative* Problem Noted Date Resolved Date Obesity 07/25/2013 01/30/2022 C. difficile colitis 06/11/2012 08/03/2016 Last Assessment & Plan: No recurrence Essential hypertension 01/10/2009 7 Last Assessment & Plan: Hasn't been exercising for the last few months. Likes to walk. Has gained wt. Dr Bruce decreased her atenolol 6 mos ago but Valentina increased it back to 25 mg daily since not exercising. Acute appendicitis without mention of peritoniti s 10/31/2008 01/24/2013 Viral warts, unspecified 03/01/2008 013 XEROSIS///SEBACEOUS GLAND DIS NEC 03/01/2008 01/24/2013 Onychia and paronychia of toe 09/02/2007 Calculus of kidney 07/26/2006 08/03/2016 Actinic keratosis 11/09/2005 12/25/2013 Inflamed seborrheic keratosis 11/09/2005 SOLAR LENTIGENES///DYSCHROMIA OTHER 11/09/2005 01/24/2013 Throat pain 12/04/2004 01/24/2013 Other dyschromia 10/21/2004 11/09/2005 Other chronic dermatitis due to solar radiation 10/21/2004 12/25/2013 documented as of this encounter (statuses as of 05/24/2022) [facility] of Past illness Narrative* Problem Noted Date Resolved Date Obesity 07/25/2013 01/30/2022 C. difficile colitis 06/11/2012 08/03/2016 Last Assessment & Plan: No recurrence Essential hypertension 01/10/2009 7 Last Assessment & Plan: Hasn't been exercising for the last few months. Likes to walk. Has gained wt. Dr Bruce decreased her atenolol 6 mos ago but Valentina increased it back to 25 mg daily since not exercising. Acute appendicitis without mention of peritoniti s 10/31/2008 01/24/2013 Viral warts, unspecified 03/01/2008 013 XEROSIS///SEBACEOUS GLAND DIS NEC 03/01/2008 01/24/2013 Onychia and paronychia of toe 09/02/2007 Calculus of kidney 07/26/2006 08/03/2016 Actinic keratosis 11/09/2005 12/25/2013 Inflamed seborrheic keratosis 11/09/2005 SOLAR LENTIGENES///DYSCHROMIA OTHER 11/09/2005 01/24/2013 Throat pain 12/04/2004 01/24/2013 Other dyschromia 10/21/2004 11/09/2005 Other chronic dermatitis due to solar radiation 10/21/2004 12/25/2013 documented as of this encounter (statuses as of 06/24/2022) [facility] of Past illness Narrative* Problem Noted Date Diagnosed Date Resolved Date Obesity 07/25/2013 01/30/2022 C. difficile colitis 06/11/2012 017 Last Assessment & Plan: No recurrence Essential hypertension 01/10/200908/03 Last Assessment & Plan: Hasn't been exercising for the last few months. Likes to walk. Has gained wt. Dr Bruce decreased her atenolol 6 mos ago but Valentina increased it back to 25 mg daily since not exercising. Acute appendicitis without m ention of peritonitis 10/31/2008 01/24/2013 Viral warts, unspecified 03/01/200804/2012 XEROSIS///SEBACEOUS GLAND DIS NEC 03/01/2008 01/24/2013 Onychia and paronychia of toe 09/02/2007 01/24/2013 Calculus of kidney 07/26/2006 7 Actinic keratosis 11/09/2005 12/25/2013 Inflamed seborrheic keratosis 11/09/2005 12/25/2013 SOLAR LENTIGENES///DYSCHROMIA OTHER 11/09/2005 01/24/2013 Throat pain 12/04/2004 01/24/2013 Other dyschromia 10/21/2004 11/09/2005 Other chronic dermatitis due to solar radiation 10/21/2004 12/25/2013 documented as of this encounter (statuses as of 09/22/2022) [facility] of Past illness Narrative* Problem Noted Date Diagnosed Date Resolved Date Obesity 07/25/2013 01/30/2022 C. difficile colitis 06/11/2012 017 Last Assessment & Plan: No recurrence Essential hypertension 01/10/200908/03 Last Assessment & Plan: Hasn't been exercising for the last few months. Likes to walk. Has gained wt. Dr Bruce decreased her atenolol 6 mos ago but Valentina increased it back to 25 mg daily since not exercising. Acute appendicitis without m ention of peritonitis 10/31/2008 01/24/2013 Viral warts, unspecified 03/01/200804/2012 XEROSIS///SEBACEOUS GLAND DIS NEC 03/01/2008 01/24/2013 Onychia and paronychia of toe 09/02/2007 01/24/2013 Calculus of kidney 07/26/2006 7 Actinic keratosis 11/09/2005 12/25/2013 Inflamed seborrheic keratosis 11/09/2005 12/25/2013 SOLAR LENTIGENES///DYSCHROMIA OTHER 11/09/2005 01/24/2013 Throat pain 12/04/2004 01/24/2013 Other dyschromia 10/21/2004 11/09/2005 Other chronic dermatitis due to solar radiation 10/21/2004 12/25/2013 documented as of this encounter (statuses as of 11/14/2022) [facility] of Past illness Narrative* Problem Noted Date Diagnosed Date Resolved Date Obesity 07/25/2013 01/30/2022 C. difficile colitis 06/11/2012 017 Last Assessment & Plan: No recurrence Essential hypertension 01/10/200908/03 Last Assessment & Plan: Hasn't been exercising for the last few months. Likes to walk. Has gained wt. Dr Bruce decreased her atenolol 6 mos ago but Valentina increased it back to 25 mg daily since not exercising. Acute appendicitis without m ention of peritonitis 10/31/2008 01/24/2013 Viral warts, unspecified 03/01/200804/2012 XEROSIS///SEBACEOUS GLAND DIS NEC 03/01/2008 01/24/2013 Onychia and paronychia of toe 09/02/2007 01/24/2013 Calculus of kidney 07/26/2006 7 Actinic keratosis 11/09/2005 12/25/2013 Inflamed seborrheic keratosis 11/09/2005 12/25/2013 SOLAR LENTIGENES///DYSCHROMIA OTHER 11/09/2005 01/24/2013 Throat pain 12/04/2004 01/24/2013 Other dyschromia 10/21/2004 11/09/2005 Other chronic dermatitis due to solar radiation 10/21/2004 12/25/2013 documented as of this encounter (statuses as of 12/01/2022) [facility] History of Past illness Narrative* Problem Noted Date Diagnosed Date Resolved Date Obesity 07/25/2013 01/30/2022 C. difficile colitis 06/11/2012 017 Last Assessment & Plan: No recurrence Essential hypertension 01/10/200908/03 Last Assessment & Plan: Hasn't been exercising for the last few months. Likes to walk. Has gained wt. Dr Bruce decreased her atenolol 6 mos ago but Valentina increased it back to 25 mg daily since not exercising. Acute appendicitis without m ention of peritonitis 10/31/2008 01/24/2013 Viral warts, unspecified 03/01/200804/2012 XEROSIS///SEBACEOUS GLAND DIS NEC 03/01/2008 01/24/2013 Onychia and paronychia of toe 09/02/2007 01/24/2013 Calculus of kidney 07/26/2006 7 Actinic keratosis 11/09/2005 12/25/2013 Inflamed seborrheic keratosis 11/09/2005 12/25/2013 SOLAR LENTIGENES///DYSCHROMIA OTHER 11/09/2005 01/24/2013 Throat pain 12/04/2004 01/24/2013 Other dyschromia 10/21/2004 11/09/2005 Other chronic dermatitis due to solar radiation 10/21/2004 12/25/2013 documented as of this encounter (statuses as of 01/11/2023) [facility] History of Past illness Narrative* Problem Noted Date Diagnosed Date Resolved Date Obesity 07/25/2013 01/30/2022 C. difficile colitis 06/11/2012 017 Last Assessment & Plan: No recurrence Essential hypertension 01/10/200908/03 Last Assessment & Plan: Hasn't been exercising for the last few months. Likes to walk. Has gained wt. Dr Bruce decreased her atenolol 6 mos ago but Valentina increased it back to 25 mg daily since not exercising. Acute appendicitis without m ention of peritonitis 10/31/2008 01/24/2013 Viral warts, unspecified 03/01/200804/2012 XEROSIS///SEBACEOUS GLAND DIS NEC 03/01/2008 01/24/2013 Onychia and paronychia of toe 09/02/2007 01/24/2013 Calculus of kidney 07/26/2006 7 Actinic keratosis 11/09/2005 12/25/2013 Inflamed seborrheic keratosis 11/09/2005 12/25/2013 SOLAR LENTIGENES///DYSCHROMIA OTHER 11/09/2005 01/24/2013 Throat pain 12/04/2004 01/24/2013 Other dyschromia 10/21/2004 11/09/2005 Other chronic dermatitis due to solar radiation 10/21/2004 12/25/2013 documented as of this encounter (statuses as of 05/24/2023) [facility] History of Past illness Narrative* Problem Noted Date Resolved Date C. difficile colitis 06/11/2012 08/03/2016 Last Assessment & Plan: No recurrence Essential hypertension 01/10/2009 7 Last Assessment & Plan: Hasn't been exercising for the last few months. Likes to walk. Has gained wt. Dr Bruec decreased her atenolol 6 mos ago but Valentina increased it back to 25 mg daily since not exercising. Acute appendicitis without mention of peritoniti s 10/31/2008 01/24/2013 Viral warts, unspecified 03/01/2008 013 XEROSIS///SEBACEOUS GLAND DIS NEC 03/01/2008 01/24/2013 Onychia and paronychia of toe 09/02/2007 Calculus of kidney 07/26/2006 08/03/2016 Actinic keratosis 11/09/2005 12/25/2013 Inflamed seborrheic keratosis 11/09/2005 SOLAR LENTIGENES///DYSCHROMIA OTHER 11/09/2005 01/24/2013 Throat pain 12/04/2004 01/24/2013 Other dyschromia 10/21/2004 11/09/2005 Other chronic dermatitis due to solar radiation 10/21/2004 12/25/2013 documented as of this encounter (statuses as of 05/25/2021) [facility] History of Past illness Narrative* Problem Noted Date Resolved Date C. difficile colitis 06/11/2012 08/03/2016 Last Assessment & Plan: No recurrence Essential hypertension 01/10/2009 7 Last Assessment & Plan: Hasn't been exercising for the last few months. Likes to walk. Has gained wt. Dr Bruce decreased her atenolol 6 mos ago but Valentina increased it back to 25 mg daily since not exercising. Acute appendicitis without mention of peritoniti s 10/31/2008 01/24/2013 Viral warts, unspecified 03/01/2008 013 XEROSIS///SEBACEOUS GLAND DIS NEC 03/01/2008 01/24/2013 Onychia and paronychia of toe 09/02/2007 Calculus of kidney 07/26/2006 08/03/2016 Actinic keratosis 11/09/2005 12/25/2013 Inflamed seborrheic keratosis 11/09/2005 SOLAR LENTIGENES///DYSCHROMIA OTHER 11/09/2005 01/24/2013 Throat pain 12/04/2004 01/24/2013 Other dyschromia 10/21/2004 11/09/2005 Other chronic dermatitis due to solar radiation 10/21/2004 12/25/2013 documented as of this encounter (statuses as of 07/02/2021) [facility] History of Past illness Narrative* Problem Noted Date Resolved Date C. difficile colitis 06/11/2012 08/03/2016 Last Assessment & Plan: No recurrence Essential hypertension 01/10/2009 7 Last Assessment & Plan: Hasn't been exercising for the last few months. Likes to walk. Has gained wt. Dr Bruce decreased her atenolol 6 mos ago but Valentina increased it back to 25 mg daily since not exercising. Acute appendicitis without mention of peritoniti s 10/31/2008 01/24/2013 Viral warts, unspecified 03/01/2008 013 XEROSIS///SEBACEOUS GLAND DIS NEC 03/01/2008 01/24/2013 Onychia and paronychia of toe 09/02/2007 Calculus of kidney 07/26/2006 08/03/2016 Actinic keratosis 11/09/2005 12/25/2013 Inflamed seborrheic keratosis 11/09/2005 SOLAR LENTIGENES///DYSCHROMIA OTHER 11/09/2005 01/24/2013 Throat pain 12/04/2004 01/24/2013 Other dyschromia 10/21/2004 11/09/2005 Other chronic dermatitis due to solar radiation 10/21/2004 12/25/2013 documented as of this encounter (statuses as of 09/09/2021) [facility] History of Past illness Narrative* Problem Noted Date Resolved Date C. difficile colitis 06/11/2012 08/03/2016 Last Assessment & Plan: No recurrence Essential hypertension 01/10/2009 7 Last Assessment & Plan: Hasn't been exercising for the last few months. Likes to walk. Has gained wt. Dr Bruce decreased her atenolol 6 mos ago but Valentina increased it back to 25 mg daily since not exercising. Acute appendicitis without mention of peritoniti s 10/31/2008 01/24/2013 Viral warts, unspecified 03/01/2008 013 XEROSIS///SEBACEOUS GLAND DIS NEC 03/01/2008 01/24/2013 Onychia and paronychia of toe 09/02/2007 Calculus of kidney 07/26/2006 08/03/2016 Actinic keratosis 11/09/2005 12/25/2013 Inflamed seborrheic keratosis 11/09/2005 SOLAR LENTIGENES///DYSCHROMIA OTHER 11/09/2005 01/24/2013 Throat pain 12/04/2004 01/24/2013 Other dyschromia 10/21/2004 11/09/2005 Other chronic dermatitis due to solar radiation 10/21/2004 12/25/2013 documented as of this encounter (statuses as of 01/25/2022) [facility] Smith Tripp [facility] May 22, 2023 7:31am Note Date/Time May 22, 2023 7:1 2am [facility] Medical Records Department [address] [place] [address] Emergency Department Summary 05/22/23 MR#: [id number] Acct: [id number] Name: VALENTINA DONAHUE Rep #:[id number] : 1965 57 From: Smith Tripp DO PCP: Dr. Agnieszka Bruce MD Status:RE G ER Location: ED HPI History of Present Illness Chief Complaint: Flank Pain Informant: patient and spouse/S.O. Narrative Narrative: Patient is a 57-year-old female with past medical history of hypertension restless leg syndrome and sleep apnea. She states she was sleeping when she woke with left-sided pain. She states the pain is located along the left lateral abdomen and sharp in nature. She denies any recent trauma or excessive activity prior to the pain beginning. She states her urine is dark but also reports that is because she does not drink enough water. She states that she does have a remote history of kidney stone and this feels similar nature and secondary to concern for that she presents for evaluation [facility] Medical History Hypertension Restless leg syndrome Sleep apnea Home Medications carbidopa 25 mg-levodopa 100 mg-entacapone 200 mg tablet 1 tab PO QHS 06/04/15 [History Last Taken 06/05/15 \] trazodone 50 mg tablet 25 mg PO QHS 06/04/15 [History Last Taken 06/05/15] estradiol 0.01% (0.1 mg/gram) vaginal cream (Estrace) 1 g vaginal 2XW #42.5 grams 08/21/19 [Rx Last Taken Unknown] ketorolac 10 mg tablet 10 mg PO 4X/DAY PRN PRN pain 5 days #20 tabs 05/22/23 [Rx Last Taken Unknown] tamsulosin 0.4 mg capsule (Flomax) 0.4 mg PO DAILY #14 caps 05/22/23 [Rx Last Taken Unknown] Allergy/AdvReac Type Severity Reaction Status Date / Time acrivastine [From Semprex-D] Allergy Other Verified 09/07/22 14:48 cefuroxime axetil Allergy Rash Verified 09/07/22 14:48 [From Ceftin] diphenhydramine HCl Allergy Rash Verified 09/07/22 14:48 [From Benadryl] erythromycin base Allergy Rash Verified 09/07/22 14:48 insulin lispro [From Humalog] Allergy Unknown Verified 09/07/22 14:48 naproxen Allergy Unknown Verified 09/07/22 14:48 nitrofurantoin Allergy Rash Verified 09/07/22 14:48 [From Macrobid] nortriptyline Allergy Unknown Verified 09/07/22 14:48 Penicillins Allergy Rash Verified 09/07/22 14:48 pseudoephedrine HCl Allergy Other Verified 09/07/22 14:48 [From Semprex-D] Family History Mother Ovarian cancer Grandmother Heart disease [place] at 82 Father Heart disease Surgical History H/O hand surgery History of appendectomy History of lithotripsy Social History Smoking Status: Never smoker alcohol intake: current details: occasionally substance use type: does not use caffeine: Yes what type of physical activity do you participate in: walking frequency: 3-4 times per week seatbelt use: always do you feel safe at home: Yes additional social history: - [employer] Patient works at [employer] ROS ROS ED Constitutional Constitutional ED: Denies chills or fever(s) ENT ENT ED: Denies sore throat Cardiovascular Cardiovascular: Denies chest pain Respiratory/Chest Respiratory/Chest: Denies cough or dyspnea Gastrointestinal Gastrointestinal: Reports abdominal pain and nausea; Denies diarrhea or vomiting Genitourinary Genitourinary ED: Denies dysuria or urinary frequency Musculoskeletal Musculoskeletal: Reports back pain; Denies myalgias Integumentary Denies rash Neurologic Neurologic: Denies headache(s) Hematologic/Lymphatic Hematologic/Lymphatic: Denies easy bleeding or easy bruising EXAM Physical Exam Const Vital Signs: 05/22/23 04:35 05/22/23 06:34 Temperature 98 F Temperature Source Oral Pulse Rate 105 H 88 Respiratory Rate 19 H 18 Blood Pressure 153/75 H 144/85 H Blood Pressure Mean 101 104 Pulse Ox 98 97 Oxygen Delivery Method Room Air Room Air Positive well nourished, well developed and obese General Appearance ED: well developed; Negative for pallor Nutritional Appearance: obese HEENT HEENT Narrative: Normocephalic atraumatic Eyes PERRL and EOMs intact bilaterally General Eye ED: Negative for scleral icterus Neck supple Neck Narrative: No nuchal rigidity or meningeal signs noted Resp normal respiratory effort and clear to auscultation bilaterally Cardio regular rate and regular rhythm Rate: other Other Details: Radial and carotid pulses are equal and symmetric GI non-distended GI Narrative: Abdomen is obese soft and nondistended with normal active bowel sounds. There is pain with palpation in the left lateral/upper quadrant. No voluntary guarding or rigidity. No pulsatile mass or fluid wave Auscultation: normoactive bowel sounds Palpation: soft Back/Spine Back/Spine Narrative: Positive left CVA pain noted Extremity normal to inspection Neuro oriented x3, CN's II-XII intact bilaterally and no sensory deficits noted Sensorium / Orientation: alert Motor Exam: strength 5/5 throughout Psych mental status grossly normal Skin no rashes or lesions noted Skin Narrative: No overlying soft tissue changes to suggest trauma or infection General Skin Exam: Negative for jaundice or pallor MDM MDM MDM Narrative Medical decision making narrative: Patient presented to the ER hypertensive otherwise with stable vitals. She reported sudden onset of sharp pain along the left lateral abdomen with remote history of kidney stone. Differential diagnosis is for kidney stone versus UTI versus pyelonephritis versus colitis. Basic labs were obtained which shows blood within the urine concerning for stone without secondary changes to suggestinfection. No significant electrolyte abnormality or signs of [place]. CT scan didconfirm a 4 mm stone in the mid left ureter with mild hydronephrosis. She was treated with IV fluids and Toradol and had resolution of her pain. At this timeas she does not have findings concerning for urosepsis or acute kidney injury and her pain is controlled there is no need for admission and she is otherwise safe for discharge and outpatient follow-up with urology History & Record Review Discussion w/independent historian: Patient and Significant other Lab Data Attestation: I reviewed the patient's lab results. Labs: Laboratory Results - last 24 hr 05/22/23 05/22/23 05:30 06:17 WBC 11.7 H RBC 4.76 Hgb 13.3 Hct 42.4 MCV 89.1 MCH 27.9 MCHC 31.4 L RDW Std Deviation 44.0 H RDW Coeff of Heather 13.4 Plt Count 316 MPV 10.0 Immature Gran % (Auto) 0.400 Neut % (Auto) 88.8 H Lymph % (Auto) 7.4 L Grand % (Auto) 3.1 Eos % (Auto) 0.0 Baso % (Auto) 0.3 Absolute Neuts (auto) 10.4 H Absolute Lymphs (auto) 0.87 Nucleated RBC % 0 Sodium 141 Potassium 3.6 Chloride 108 H Carbon Dioxide 26.0 Anion Gap 7 BUN 19 H Creatinine 1.07 H Estim Creat Clear Calc 54.23 Est GFR (MDRD) Af Amer 68 Est GFR (MDRD) Non-Af 56 L BUN/Creatinine Ratio 17.8 Glucose 136 H Calcium 9.2 Urine Color Yellow Urine Clarity Clear Urine pH 7.0 Ur Specific [place] 1.010 Urine Protein Negative Urine Glucose (UA) Normal Urine Ketones Negative Urine Occult Blood 50 H Urine Nitrite Negative Urine Bilirubin Negative Urine Urobilinogen Normal Ur Leukocyte Esterase Negative Urine RBC 10-25 SEEN Urine WBC 0 SEEN Ur Squamous Epith Cells 10-25 SEEN Urine Bacteria 0 SEEN Urine Mucus 0 SEEN Radiography Diagnostic Testing: Clinical Impression(s) from Imaging Studies Abdomen/Pelvis CT 05/22/23 04:50 IMPRESSION: Proximal left ureteral calculus with mild left hydroureteronephrosis. Electronically Signed: Ana Olson MD at 7:21 EDT , Discharge Plan Triage Chief Complaint: Flank Pain Other Complaint: Abd Pain ED Provider: Smith Tripp Dx/Rx/DC Orders Clinical Impression: Renal colic, Kidney stone, Sleep apnea, Hypertension Instructions: ED Kidney Stone with Pain Prescriptions: New ketorolac 10 mg tablet 10 mg PO 4X/DAY PRN PRN (Reason: pain) 5 Days Qty: 20 0RF tamsulosin [Flomax] 0.4 mg capsule 0.4 mg PO DAILY Qty: 14 0RF No Action estradiol [Estrace] 0.01 % (0.1 mg/gram) cream 1 g VAGINAL 2XW Qty: 42.5 2RF trazodone 50 MG tablet 25 mg PO QHS Patient Comments: sleep [id number] 1 EACH tablet 1 tab PO QHS Primary Care Provider: Agnieszka Bruce Referrals: Ann-Marie Huffman MD [Med Staff - Active Staff] - Agnieszka Bruce MD [Primary Care Provider] - Activity Restrictions/Additional Instructions: Please follow-up with urology for repeat evaluation. Keep yourself well-hydrated and stay active. If you develop a fever over 100.4 or your pain is notcontrolled with the prescribed medication please return for repeat evaluation. Disposition Disposition: Home, Self Care What to do if you have Problems For any increased pain, shortness of breath, bleeding, nausea or vomiting, chestpain, or any unexpected problems, contact your Primary Care Provider. Call [facility] ([phone]) or report to the closest Emergency Room. Call 911 if necessary. 05/22/23 0731 <Electronically signed by Smith Tripp DO> Cosigner Signature (if applicable): CC: Dr. Agnieszka Bruce MD ~ Signed [facility] Work Phone: Evaluation note* Diagnosis RLS (restless legs syndrome)- Primary Restless legs syndrome (RLS) Essential hypertension Unspecified essential hypertension Class 2 obesity due to excess calories without serious comorbidity with body mass index (BMI) of 39.0 to 39.9 in adult Special screening for malignant neoplasms, colon Need for vaccination Need for prophylactic vaccination and inoculation against unspecified single disease Elevated hemoglobin A1c Other abnormal blood chemistry [facility] Diagnosis RLS (restless legs syndrome) Restless legs syndrome (RLS) [facility] noteNo assessment information availableWKind[facility] Work Phone: Evaluation note* Diagnosis Onset Date Resolution Status Encounter for routine gynecological examination noneactive [facility] Work Phone: evaluation note* Diagnosis Obesity, Class II, BMI 35-39.9- Primary Obesity, unspecified Encounter for immunization Need for other specified prophylactic vaccination against single bacterial disease Screening for cervical cancer Screening for malignant neoplasm of the cervix Impaired fasting glucose Essential hypertension Unspecified essential hypertension RLS (restless legs syndrome) Restless legs syndrome (RLS) Psychophysiological insomnia Persistent disorder of initiating or maintaining sleep [facility]* Diagnosis Viral URI with cough- Primary Acute upper respiratory infections of unspecified site [facility]* Diagnosis Bronchitis with bronchospasm- Primary Bronchitis, not specified as acute or chronic Elevated blood pressure reading Elevated blood pressure reading without diagnosis of hypertension Obesity, Class II, BMI 35-39.9 Obesity, unspecified [facility]* Diagnosis Hypertension, essential- Primary Unspecified essential hypertension [facility]* Diagnosis Essential hypertension- Primary Unspecified essential hypertension [facility]* Diagnosis Essential hypertension Unspecified essential hypertension [facility]* Diagnosis Essential hypertension- Primary Unspecified essential hypertension RLS (restless legs syndrome) Restless legs syndrome (RLS) Obesity, Class II, BMI 35-39.9 Obesity, unspecified Elevated hemoglobin A1c Other abnormal blood chemistry [facility]* Diagnosis Essential hypertension Unspecified essential hypertension [facility]* Diagnosis Pharyngitis, unspecified etiology- Primary Acute otitis media, right Unspecified otitis media [facility]* Diagnosis Essential hypertension Unspecified essential hypertension documented in this encounter [facility] note* Diagnosis Psychophysiological insomnia Persistent disorder of initiating or maintaining sleep documented in this encounter [facility] note* Diagnosis RLS (restless legs syndrome) Restless legs syndrome (RLS) [facility]* Diagnosis Sinobronchitis- Primary Unspecified sinusitis (chronic) documented in this encounter [facility] note* Diagnosis Essential hypertension- Primary Unspecified essential hypertension Elevated hemoglobin A1c Other abnormal blood chemistry Hypercalcemia Class 2 obesity due to excess calories with body mass index (BMI) of 38.0 to 38.9 in adult, unspecified whether serious comorbidity present Encounter for long-term current use of medication documented in this encounter [facility] note* Diagnosis Renal calculus- Primary Calculus of kidney Perineal itching, female Pruritus ani documented in this encounter [facility] note* Diagnosis Renal calculus- Primary Calculus of kidney Psychophysiological insomnia Persistent disorder of initiating or maintaining sleep RLS (restless legs syndrome) Restless legs syndrome (RLS) Elevated blood pressure reading Elevated blood pressure reading without diagnosis of hypertension Obesity, Class II, BMI 35-39.9 Obesity, unspecified Encounter for immunization Need for other specified prophylactic vaccination against single bacterial disease Encounter for screening mammogram for breast cancer documented in this encounter [facility] note* Diagnosis Essential hypertension Unspecified essential hypertension RLS (restless legs syndrome) Restless legs syndrome (RLS) documented in this encounter [facility] note* Diagnosis Insomnia- Primary Insomnia, unspecified Unspecified essential hypertension RLS (restless legs syndrome) Restless legs syndrome (RLS) Impaired fasting glucose C. difficile colitis Intestinal infection due to clostridium difficile Bronchitis with bronchospasm Bronchitis, not specified as acute or chronic documented in this encounter [facility] note* Diagnosis Insomnia- Primary Insomnia, unspecified Unspecified essential hypertension RLS (restless legs syndrome) Restless legs syndrome (RLS) Impaired fasting glucose C. difficile colitis Intestinal infection due to clostridium difficile Primary hypertension- Primary Unspecified essential hypertension Mild intermittent asthma without complication Unspecified asthma RLS (restless legs syndrome) Restless legs syndrome (RLS) Class 2 obesity due to excess calories with body mass index (BMI) of 38.0 to 38.9 in adult, unspecified whether serious comorbidity present Psychophysiological insomnia Persistent disorder of initiating or maintaining sleep Impaired fasting glucose documented in this encounter [facility] note* Diagnosis Insomnia- Primary Insomnia, unspecified Unspecified essential hypertension RLS (restless legs syndrome) Restless legs syndrome (RLS) Impaired fasting glucose C. difficile colitis Intestinal infection due to clostridium difficile Sore throat- Primary Acute pharyngitis documented in this encounter [facility] note* Diagnosis Insomnia- Primary Insomnia, unspecified Unspecified essential hypertension RLS (restless legs syndrome) Restless legs syndrome (RLS) Impaired fasting glucose C. difficile colitis Intestinal infection due to clostridium difficile Mild intermittent asthma, unspecified whether complicated- Primary [facility]* Diagnosis Insomnia- Primary Insomnia, unspecified Unspecified essential hypertension RLS (restless legs syndrome) Restless legs syndrome (RLS) Impaired fasting glucose C. difficile colitis Intestinal infection due to clostridium difficile Sore throat- Primary Acute pharyngitis Strep throat Streptococcal sore throat Sinobronchitis Unspecified sinusitis (chronic) [facility]* Diagnosis Insomnia- Primary Insomnia, unspecified Unspecified essential hypertension RLS (restless legs syndrome) Restless legs syndrome (RLS) Impaired fasting glucose C. difficile colitis Intestinal infection due to clostridium difficile Psychophysiological insomnia- Primary Persistent disorder of initiating or maintaining sleep Mild intermittent asthma without complication (HCC) Unspecified asthma Primary hypertension Unspecified essential hypertension Impaired fasting glucose Screening for depression Encounter for screening examination for other mental health and behavioral disorders Encounter for screening mammogram for breast cancer Encounter for immunization Need for other specified prophylactic vaccination against single bacterial disease documented in this encounter [facility]* Diagnosis Onset Date Resolution Status Admit Date Asthma chronic September 19 8:11am Obstructive sleep apnea chronic J ronnie 2024 8:11am [facility] Work Phone: Hospital Discharge instructions Additional Instructions Please follow-up with urology for repeat evaluation. Keep yourself well-hydrated and stay active. If you develop a fever over 100.4 or your pain is not controlled with the prescribed medication please return for repeat evaluation.[facility] Work Phone: Reason for referral (narrative)* Outpatient Procedure (Elective) - Closed Specialty Diagnoses / Procedures Referred By Sheldon lewis Referred To Contact [facility] Diagnoses Special screening for malignant neoplasms, colon Procedures COLONOSCOPY SCREENING COLONOSCOPY FLX DX W/COLLJ SPEC WHEN Agnieszka Wynn MD [address] [place] [address] [facility] [address] [place] [address] Referral ID Status Reason Start Date Expiration Date V isits Requested Visits Authorized [id number] Closed Auto-Generate d Referral 04/11/2021 07/09/2021 1 1 [facility] for referral (narrative)* Diagnostic Procedure Only (Routine) - Pending Review Specialty Diagnoses / Procedures Referred By Sheldon t Referred To Contact [facility] Diagnoses Encounter for screening mammogram for breast cancer Procedures ROGELIO SCREENING W MICHAEL SCREENING DIGITAL BREAST TOMOSYNTHESIS BI SCREENING MAMMOGRAPHY BI 2-VIEW BREAST INC Hamilton Guaman APRN.CNS [address] [place] [address] [facility] [address] [place] [address] Referral ID Status Reason Start Date Expiration Date Visits Requested Visits Authorized [id number] Pending Review Auto-Generat ed Referral 06/15/2023 07/14/2024 1 1 [facility] for referral (narrative)No reason for referral information availableW[facility] Work Phone: Advance Directives Documents on File Type Date Recorded Patient Senior Account Clerk Expl anation Advance Directive(s) 04/11/2021 8:40 AM Advance Directive(s) 07/23/2016 11:04 AM Documents on File Type Date Recorded Patient Senior Account Clerk Expl anation Advance Directive(s) 04/11/2021 8:40 AM Advance Directive(s) 07/23/2016 11:04 AM Advance Directive Response Recorded Date/ Time Living Will No May 22, 2023 4:37am Power of Senior Sas Programmer No May 21 4:37am Family History Relationship Condition Age at Onset Recorded Date/T domi mother Malignant neoplasm of ovary Unknown grandmother Cardiac disease Unknown father Cardiac disease Unknown Chief Complaint and Reason for Visit Chief Complaint Annual (CIRCULAR DISTRIBUTOR) SCREENING Reason for Visit Encounter for routin e gynecological examination Chief Complaint abd pain Chief Complaint Admit Date KUB July 19, 2024 10:12 am Chief Complaint Admit Date KUB July 19, 2024 10:12 am 6 M F/U September 19, 2024 8:11 am Reason for Visit Admit Date Asthma September 19, 2024 8:11 am Obstructive sleep apnea September 19, 2024 8:11am Health Concerns Infection Onset Date Last Indicated Resolved Time COVID-19 Rule-Out 01/25/2022 01/25/2022 Reason for Referral Specialty Diagnoses / Procedures Referred By Contac t Referred To Contact Urology Diagnoses Renal calculus Procedures CONSULT TO UROLOGY OFFICE/OUTPATIENT [facility] 60 MINUTES Hamilton Oakes APRN.CNS [address] [place] [address] Referral ID Status Reason Start Date Expiration Date Visits Requested Visits Authorized [id number] Authorized PCP Requested Referral 05/24/2023 05/23/2024 1 1 Specialty Diagnoses / Procedures Referred By Contac t Referred To Contact Diagnoses Mild intermittent asthma, unspecified whether complicated Procedures CONSULT TO PULMONARY MEDICINE Agnieszka Bruce MD [address] [place] [address] Referral ID Status Reason Start Date Expiration Date Visits Requested Visits Authorized [id number] Authorized PCP Requested Referral 05/20/2024 1 1 Summary Purpose Additional Source Comments Source Comments (unrecognize d section and content) In the event this informatio n is protected by the Federal Confidentiality of Alcohol and Drug Abuse Patient Records regulations: The Federal rules restrict any use of the information to criminally investigate or prosecute any alcohol or drug abuse patient.[facility] the event this information is protected by the Federal Confidentiality of Alcohol and Drug Abuse Patient Records regulations: The Federal rules restrict any use of the information to criminally investigate or prosecute any alcohol or drug abuse patient.[facility] CenterIn the event this information is protected by the Federal Confidentiality of Alcohol and Drug Abuse Patient Records regulations: The Federal rules restrict any use of the information to criminally investigate or prosecute any alcohol or drug abuse patient.[facility] CenterIn the event this information is protected by the Federal Confidentiality of Alcohol and Drug Abuse Patient Records regulations: The Federal rules restrict any use of the information to criminally investigate or prosecute any alcohol or drug abuse patient.[facility] CenterIn the event this information is protected by the Federal Confidentiality of Alcohol and Drug Abuse Patient Records regulations: The Federal rules restrict any use of the information to criminally investigate or prosecute any alcohol or drug abuse patient.[facility] CenterIn the event this information is protected by the Federal Confidentiality of Alcohol and Drug Abuse Patient Records regulations: The Federal rules restrict any use of the information to criminally investigate or prosecute any alcohol or drug abuse patient.[facility] CenterIn the event this information is protected by the Federal Confidentiality of Alcohol and Drug Abuse Patient Records regulations: The Federal rules restrict any use of the information to criminally investigate or prosecute any alcohol or drug abuse patient.[facility] CenterIn the event this information is protected by the Federal Confidentiality of Alcohol and Drug Abuse Patient Records regulations: The Federal rules restrict any use of the information to criminally investigate or prosecute any alcohol or drug abuse patient.[facility] CenterIn the event this information is protected by the Federal Confidentiality of Alcohol and Drug Abuse Patient Records regulations: The Federal rules restrict any use of the information to criminally investigate or prosecute any alcohol or drug abuse patient.[facility] CenterIn the event this information is protected by the Federal Confidentiality of Alcohol and Drug Abuse Patient Records regulations: The Federal rules restrict any use of the information to criminally investigate or prosecute any alcohol or drug abuse patient.[facility] CenterIn the event this information is protected by the Federal Confidentiality of Alcohol and Drug Abuse Patient Records regulations: The Federal rules restrict any use of the information to criminally investigate or prosecute any alcohol or drug abuse patient.[facility] CenterIn the event this information is protected by the Federal Confidentiality of Alcohol and Drug Abuse Patient Records regulations: The Federal rules restrict any use of the information to criminally investigate or prosecute any alcohol or drug abuse patient.[facility] CenterIn the event this information is protected by the Federal Confidentiality of Alcohol and Drug Abuse Patient Records regulations: The Federal rules restrict any use of the information to criminally investigate or prosecute any alcohol or drug abuse patient.[facility] CenterIn the event this information is protected by the Federal Confidentiality of Alcohol and Drug Abuse Patient Records regulations: The Federal rules restrict any use of the information to criminally investigate or prosecute any alcohol or drug abuse patient.[facility] CenterIn the event this information is protected by the Federal Confidentiality of Alcohol and Drug Abuse Patient Records regulations: The Federal rules restrict any use of the information to criminally investigate or prosecute any alcohol or drug abuse patient.[facility] CenterIn the event this information is protected by the Federal Confidentiality of Alcohol and Drug Abuse Patient Records regulations: The Federal rules restrict any use of the information to criminally investigate or prosecute any alcohol or drug abuse patient.[facility] CenterIn the event this information is protected by the Federal Confidentiality of Alcohol and Drug Abuse Patient Records regulations: The Federal rules restrict any use of the information to criminally investigate or prosecute any alcohol or drug abuse patient.[facility] CenterIn the event this information is protected by the Federal Confidentiality of Alcohol and Drug Abuse Patient Records regulations: The Federal rules restrict any use of the information to criminally investigate or prosecute any alcohol or drug abuse patient.[facility] CenterIn the event this information is protected by the Federal Confidentiality of Alcohol and Drug Abuse Patient Records regulations: The Federal rules restrict any use of the information to criminally investigate or prosecute any alcohol or drug abuse patient.[facility] CenterIn the event this information is protected by the Federal Confidentiality of Alcohol and Drug Abuse Patient Records regulations: The Federal rules restrict any use of the information to criminally investigate or prosecute any alcohol or drug abuse patient.[facility] CenterIn the event this information is protected by the Federal Confidentiality of Alcohol and Drug Abuse Patient Records regulations: The Federal rules restrict any use of the information to criminally investigate or prosecute any alcohol or drug abuse patient.[facility] CenterIn the event this information is protected by the Federal Confidentiality of Alcohol and Drug Abuse Patient Records regulations: The Federal rules restrict any use of the information to criminally investigate or prosecute any alcohol or drug abuse patient.[facility] CenterIn the event this information is protected by the Federal Confidentiality of Alcohol and Drug Abuse Patient Records regulations: The Federal rules restrict any use of the information to criminally investigate or prosecute any alcohol or drug abuse patient.[facility] CenterIn the event this information is protected by the Federal Confidentiality of Alcohol and Drug Abuse Patient Records regulations: The Federal rules restrict any use of the information to criminally investigate or prosecute any alcohol or drug abuse patient.[facility] CenterIn the event this information is protected by the Federal Confidentiality of Alcohol and Drug Abuse Patient Records regulations: The Federal rules restrict any use of the information to criminally investigate or prosecute any alcohol or drug abuse patient.[facility] CenterIn the event this information is protected by the Federal Confidentiality of Alcohol and Drug Abuse Patient Records regulations: The Federal rules restrict any use of the information to criminally investigate or prosecute any alcohol or drug abuse patient.[facility] CenterIn the event this information is protected by the Federal Confidentiality of Alcohol and Drug Abuse Patient Records regulations: The Federal rules restrict any use of the information to criminally investigate or prosecute any alcohol or drug abuse patient.[facility] Reason for Visit (unrecogniz ed section and content) Reason Comments F/U 6 months Specialty Diagnoses / Procedures Referred By Contac t Referred To Contact Internal Medicine / INTERNAL MEDICINE Diagnoses Follow up 6 month follow up Procedures OFFICE/OUTPATIENT ESTABLISHED MOD MDM 30-39 MIN 4C EST Hamilton Oakes, MACHINIST SET UP.INSPECTOR MACHINE PARTS [address] [place] [address] Agnieszka Bruce MD [address] [place] [address] Referral ID Status Reason Start Date Expiration Date Visits Re quested Visits Authorized [id number] Closed 03/12/2021 02/21/2022 1 1 Reason Comments Patient Question request refill pleas e Reason Comments F/U 6 Month Specialty Diagnoses / Procedures Referred By Contac t Referred To Contact Internal Medicine / INTERNAL MEDICINE Diagnoses 6 month follow up Procedures OFFICE/OUTPATIENT ESTABLISHED MOD MDM 30-39 MIN 4C Agnieszka Espinal MD [address] [place] [id number] Agnieszka Bruce MD [address] [place] [address] Referral ID Status Reason Start Date Expiration Date Visits Re quested Visits Authorized [id number] Closed 02/22/2021 02/21/2022 1 1 Reason Comments Cough Pt reported influenz a vaccination 01/23/2022, throat pain, chest congestion x1 day. Reason Comments Cough With fever, bilatera l ear pain, sore throat x 4 days. Seen in [facility] 01/25/2022 Specialty Diagnoses / Procedures Referred By Sheldon t Referred To Contact Internal Medicine / INTERNAL MEDICINE Diagnoses Cough Cough bringing up cloudy sputum, fever, ear ache, sore throat since Wednesday seen in not any better. Covid and flu negative Procedures OFFICE/OUTPATIENT ESTABLISHED MOD [facility] 30-39 MIN 4C EST Agnieszka Bruce MD [address] [place] [id number] Gerald Espinal MD [address] [place] [address] Referral ID Status Reason Start Date Expiration Date Visits Re quested Visits Authorized [id number] Closed 01/28/2022 02/21/2022 1 1 Reason Comments results-chest xray Reason Comments Blood Pressure Check Specialty Diagnoses / Procedures Referred By Sheldon lewis Referred To Contact Internal Medicine / FAMILY MEDICINE Diagnoses bp true Procedures OFFICE/OUTPATIENT ESTABLISHED MOD [facility] 30-39 MIN NURSE Agnieszka Bruce MD [address] [place] [address] Magy Garrett [address] [place] [address] Referral ID Status Reason Start Date Expiration Date Visits Re quested Visits Authorized [id number] Closed 03/11/2022 02/21/2023 1 1 Reason Comments Blood Pressure Check Reason Comments Refill Request Reason Comments F/U 6 months Specialty Diagnoses / Procedures Referred By Sheldon t Referred To Contact Internal Medicine / INTERNAL MEDICINE Diagnoses Follow-up exam 6 month f/u Procedures OFFICE/OUTPATIENT ESTABLISHED MOD MDM 30-39 MIN 4C EST Hamilton Oakes, MACHINIST SET UP.INSPECTOR MACHINE PARTS [address] [place] [address] Agnieszka Bruce MD [address] [place] [address] Referral ID Status Reason Start Date Expiration Date Visits Re quested Visits Authorized [id number] Closed 04/27/2022 02/21/2023 1 1 Reason Comments Results Labs Reason Comments Sore Throat Bilateral ear pain x 2 days Specialty Diagnoses / Procedures Referred By Sheldon t Referred To Contact [facility] Diagnoses sore thorat, ear pain in both ears x 2 days Procedures EST SAME DAY [facility] [address] [place] [address] Referral ID Status Reason Start Date Expiration Date V isits Requested Visits Authorized [id number] Outside PCP 05/24/2022 07/23/2022 1 1 Reason Comments Nasal Congestion drainage, cough, pushpa ateral ear pain, sore throat x 11 days Reason Comments ER F/U Reason Comments F/U 6 Month Reason Onset Date Comments Refill Request 09/27/2023 Specialty Diagnoses / Procedures Referred By Sheldon lewis Referred To Contact Radiology / [facility] Diagnoses Bronchitis with bronchospasm main lobby Procedures RADIOLOGIC EXAM CHEST 2 VIEWS XR CHEST Agnieszka Bruce MD [address] [place] [address] [address] [place] [address] Referral ID Status Reason Start Date Expiration Date Visits Re quested Visits Authorized [id number] Closed 01/28/2022 02/21/2022 1 1 Reason Comments F/U 6 months Labs prior Reason Comments Ear Pain Bilateral x 5 daysSo re throat x 3 days Reason Comments Orders Needs referral [facility] Reason Comments Sore Throat ST, cough and conges tion x 1 week Care Teams (unrecognized sec tion and content) Paper Cap Machine Operator Relationship Specialty Start Date End Date Agnieszka Bruce MD [address] [facility] [place] [address] PCP - General 02/29/08 Paper Cap Machine Operator Relationship Specialty Start Date End Date Agnieszka Bruce MD [address] [place] [address], [place] [address] PCP - General 02/29/08 Paper Cap Machine Operator Relationship Specialty Start Date End Date Agnieszka Bruce MD [address] [place] [address], [place] [address] PCP - General 02/29/08 Paper Cap Machine Operator Relationship Specialty Start Date End Date Agnieszka Bruce MD [address] [place] [address], [place] [address] PCP - General 02/29/08 Paper Cap Machine Operator Relationship Specialty Start Date End Date Agnieszka Bruce MD [address] [place] [address], [place] [address] PCP - General 02/29/08 Paper Cap Machine Operator Relationship Specialty Start Date End Date Agnieszka Bruce MD [address] [place] [address], [place] [address] PCP - General 02/29/08 Paper Cap Machine Operator Relationship Specialty Start Date End Date Agnieszka Bruce MD [address] [place] [address], [place] [address] PCP - General 02/29/08 Paper Cap Machine Operator Relationship Specialty Start Date End Date Agnieszka Bruce MD [address] [place] [address], [place] [address] PCP - General 02/29/08 Paper Cap Machine Operator Relationship Specialty Start Date End Date Agnieszka Bruce MD [address] [place] [address], [place] [address] PCP - General 02/29/08 Paper Cap Machine Operator Relationship Specialty Start Date End Date Agnieszka Bruce MD [address] [place] [address] PCP - General 02/29/08 Paper Cap Machine Operator Relationship Specialty Start Date End Date Agnieszka Bruce MD [address] [place] [address] PCP - General 02/29/08 Team Status: Active Member Role Status Dates Dr. Agnieszka Bruce MD Family Provider Active Dr. Agnieszka Bruce MD Primary Care Provider Active Team Status: Inactive Member Role Status Dates Dr. Agnieszka Bruce MD Primary Care Provider, Referr ing Provider Active Yumiko Todd ECONOMIC RESEARCH ASSISTANT, ECONOMIC RESEARCH ASSISTANT-C Attending Provider Active Team Status: Inactive Member Role Status Dates Dr. Agnieszka Bruce MD Primary Care Provider Active Yumiko Todd ECONOMIC RESEARCH ASSISTANT, ECONOMIC RESEARCH ASSISTANT-C Attending Provider, Referring Provider Active Paper Cap Machine Operator Relationship Specialty Start Date End Date Agnieszka Bruce MD [address] [place] [address] PCP - General 02/29/08 Paper Cap Machine Operator Relationship Specialty Start Date End Date Agnieszka Bruce MD [address] [place] [address] PCP - General 02/29/08 Paper Cap Machine Operator Relationship Specialty Start Date End Date Agnieszka Bruce MD [address] [place] [address] PCP - General 02/29/08 Paper Cap Machine Operator Relationship Specialty Start Date End Date Agnieszka Bruce MD [address] [place] [address] PCP - General 02/29/08 Team Status: Inactive Member Role Status Dates Dr. Agnieszka Bruce MD Primary Care Provider Active Dr. Smith Tripp , DO Emergency Provider Active Paper Cap Machine Operator Relationship Specialty Start Date End Date Agnieszka Bruce MD [address] [place] [address] PCP - General 02/29/08 Paper Cap Machine Operator Relationship Specialty Start Date End Date Agnieszka Bruce MD [address] [place] [address] PCP - General 02/29/08 Paper Cap Machine Operator Relationship Specialty Start Date End Date Agnieszka Bruce MD [address] [place] [address] PCP - General 02/29/08 Paper Cap Machine Operator Relationship Specialty Start Date End Date Agnieszka Bruce MD [address] [place] [address] PCP - General 02/29/08 Paper Cap Machine Operator Relationship Specialty Start Date End Date Agnieszka Bruce MD [address] [place] [address] PCP - General 02/29/08 Paper Cap Machine Operator Relationship Specialty Start Date End Date Agnieszka Bruce MD [address] [place] [address] PCP - General 02/29/08 Paper Cap Machine Operator Relationship Specialty Start Date End Date Agnieszka Bruce MD [address] [place] [address] PCP - General 02/29/08 Hamilton Oakes, ADELE.INSPECTOR MACHINE PARTS [address] [place] [address] [facility] Internal Medicine 01/31/24 Macey Neri MACHINIST SET UP.AGILE COACH [address] [place], [place] [address] [facility] Internal Medicine 01/31/24 Paper Cap Machine Operator Relationship Specialty Start Date End Date Agnieszka Bruce MD [address] [place] [address] PCP - General 02/29/08 Hamilton Oakes, MACHINIST SET UP.INSPECTOR MACHINE PARTS [address] [place] [address] [facility] Internal Medicine 01/31/24 Macey Neri MACHINIST SET UP.AGILE COACH [address] [place] [address] [facility] Internal Medicine 01/31/24 Paper Cap Machine Operator Relationship Specialty Start Date End Date Agnieszka Bruce MD [address] [place] [address] PCP - General 02/29/08 Hamilton Oakes, MACHINIST SET UP.INSPECTOR MACHINE PARTS [address] [place] [address] [facility] Internal Medicine 01/31/24 Macey Neri MACHINIST SET UP.AGILE COACH [address] [place] [address] [facility] Internal Medicine 05/16/24 Team Status: Active Member Role Status Dates Dr. Agnieszka Bruce MD Primary Care Provider Active Team Status: Inactive Member Role Status Dates Dr. Agnieszka Bruce MD Primary Care Provider Active Start: July 19, 2024 End: July 19, 2024 Dr. Ann-Marie Huffman MD Attending Provider Active Start: July 19, 2024 End: July 19, 2024 Dr. Ann-Marie Huffman MD Referring Provider Active Start: July 19, 2024 End: July 19, 2024 Team Status: Active Member Role/Relationship Status Dates Dr. Agnieszka Bruce MD Primary Care Provider Active Team Status: Inactive Member Role/Relationship Status Dates Dr. Agnieszka Bruce MD Primary Care Provider Active Start: July 19, 2024 End: July 19, 2024 Dr. Ann-Marie Huffman MD Attending Provider Active Start: July 19, 2024 End: July 19, 2024 Dr. Ann-Marie Huffman MD Referring Provider Active Start: July 19, 2024 End: July 19, 2024 Team Status: Inactive Member Role/Relationship Status Dates Dr. Agnieszka Bruce MD Primary Care Provider Active Start: August 22, 2024 Dr. Ann-Marie Huffman MD Attending Provider Active Start: August 22, 2024 Team Status: Inactive Member Role/Relationship Status Dates Dr. Agnieszka Bruce MD Primary Care Provider Active Start: September 19, 2024 End: September 19, 2024 Dr. Agnieszka Bruce MD Referring Provider Active Start: September 19, 2024 End: September 19, 2024 SAVITA MoratayaC Attending Provider Active Start: September 19, 2024 End: September 19, 2024 Goals (unrecognized section and content) Goals may be documented in a n alternate sectionGoals may be documented in an alternate sectionGoals may be documented in an alternate sectionGoals may be documented in an alternate sectionGoals may be documented in an alternate sectionGoals may be documented in an alternate section INFORMATION SOURCE (unrecogn ized section and content) DATE CREATED AUTHOR 06/28/2024 [facility] DATE CREATED AUTHOR AUTHOR'S ORGANIZ ATION 09/16/2024 [facility] FOR RECORDS PERTAINING TO PATIENTS WHO ARE OR HAVE BEEN ENROLLED IN A CHEMICAL DEPENDENCY/SUBSTANCEABUSE PROGRAM, SOME INFORMATION MAY BE OMITTED. This clinical summary was aggregated from multiple sources. Caution should be exercised in using it in the provision of clinical care. This summary normalizes information from multiple sources, and as a consequence, information in this document may materially change the coding, format and clinical context of patient data. In addition, data may be omitted in some cases. CLINICAL DECISIONS SHOULD BE BASED ON THE PRIMARY CLINICAL RECORDS. [facility] [employer] [facility]. provides no warranty or guarantee of the accuracy or completeness of information in this document.
== END | disposition home or self-care (01) ==
LOC: OPBI 10:07
PROVIDERS: PCP Internal Medicine; Referring Provider Nurse Practitioner Women's Health; Visit Provider Nurse Practitioner Women's Health
DX: Z12.31 Encounter for screening mammogram for malignant neoplasm of breast (principal)
CPT/HCPCS: 77063; 77067